=== PATIENT | female | born 1935 | race Caucasian/White ===

== ENCOUNTER 2016-11-19 18:13 | Emergency (ER) | payer MEDICARE, BC ==
[2016-11-19] MEDS ORDERED: traMADol 50 MG Tab PO ONE (18:26)
--- NOTE | 2016-11-19 18:30 | EDM.PDOC ---
ED HPI GENERAL MEDICAL PROBLEM - General Stated Complaint: PAIN Time Seen by Provider: 11/19/16 18:13 Source of Information: Reports: Patient History Limitations: Reports: No limitations - History of Present Illness INITIAL COMMENTS - FREE TEXT/NARRATIVE: 81 years old w f came to the ed due to low back pain. Pt was seen by her PMD who gave pain meds which did not help her pain. Pt has pain at her mid lower back radiating to her r groin. Denies stool or urine incontinence. No new trauma. No N/V/D Onset: gradual Onset Date: 11/14/16 Onset Time: 09:00 Duration: Day(s):, Intermittent Location: Reports: back Quality: Reports: Dull, Pressure Severity: mild Improves with: Reports: None Worsens with: Reports: None Context: Reports: Activity, Lifting Associated Symptoms: Reports: denies other symptoms - Related Data Allergies Allergy/AdvReac Type Severity Reaction Status Date / Time erythromycin estolate Allergy Rash Verified 11/19/16 18:48 [From Ilosone] fenoprofen calcium Allergy Rash Verified 11/19/16 18:48 [From Nalfon] ibuprofen [From Motrin] Allergy Rash Verified 11/19/16 18:48 lidocaine Allergy Rash Verified 11/19/16 18:48 lisinopril [From Zestril] Allergy Rash Verified 11/19/16 18:48 Penicillins Allergy Rash Verified 11/19/16 18:48 phenylbutazone Allergy Rash Verified 11/19/16 18:48 [From Butazolidin] tetracycline [Tetracycline] Allergy Rash Verified 11/19/16 18:48 zucapsaicin Allergy Cannot Verified 11/19/16 18:48 Remember .marieucchini Allergy Severe Anaphylactic Uncoded 11/19/16 18:48 Shock Home Meds: Home Meds Aspirin 81 mg PO DAILY 04/25/14 [History] Calcium Carbonate/Vitamin D3 [Calcium 600 + Vit D Tablet] 1 tab PO DAILY [History] Carvedilol [Coreg] 0.78 mg PO BID 04/25/14 [History] Estrogens, Conjugated [Premarin Vaginal Crm] 1.5 gm TOP ASDIRECTED 04/25/14 [ History] Fosinopril [Monopril] 20 mg PO DAILY 04/25/14 [History] Mirtazapine [Remeron] 7.5 mg PO BEDTIME 04/25/14 [History] Potassium Chloride [Klor-Con 10] 10 meq PO DAILY 04/25/14 [History] Triamterene/Hydrochlorothiazid [Dyazide 37.5-25] 1 cap PO DAILY 04/25/14 [ History] atorvaSTATin [Lipitor] 20 mg PO BEDTIME 04/25/14 [History] metFORMIN [Glucophage] 750 mg PO BID 04/25/14 [History] traMADol [Ultram] 50 mg PO Q6H PRN #12 tab 11/19/16 [Rx] Social & Family History - Tobacco Use Smoking Status *Q: Never Smoker Second Hand Smoke Exposure: No - Alcohol Use Days Per Week of Alcohol Use: 0 - Recreational Drug Use Recreational Drug Use: No ED ROS GENERAL - Review of Systems Review Of Systems: See Below Constitutional: Reports: no symptoms HEENT: Reports: No symptoms Respiratory: Reports: No Symptoms Cardiovascular: Reports: No symptoms Endocrine: Reports: no symptoms GI/Abdominal: Reports: No symptoms : Reports: no symptoms Musculoskeletal: Reports: back pain Skin: Reports: no symptoms Neurological: Reports: No Symptoms Psychiatric: Reports: No symptoms Hematologic/Lymphatic: Reports: no symptoms Immunologic: Reports: no symptoms ED EXAM, GENERAL - Physical Exam Exam: See Below Exam Limited By: No limitations General Appearance: alert, WD/WN, mild distress Ears: normal external exam, normal canal Ear Exam: bilateral ear: auricle normal, canal normal, TM normal Nose: normal inspection, normal mucosa, no blood Throat/Mouth: Normal inspection, Normal lips, Normal teeth, Normal gums, Normal oropharynx, Normal voice, No airway compromise Head: atraumatic, normocephalic Neck: normal inspection, supple, non-tender, full range of motion Respiratory/Chest: no respiratory distress, lungs clear, normal breath sounds, no accessory muscle use, chest non-tender Cardiovascular: normal peripheral pulses, regular rate, rhythm, no edema, no gallop, no JVD, no murmur, no rub GI/Abdominal: normal bowel sounds, soft, non tender, no organomegaly, no distention, no abnormal bruit, no mass Rectal (Female) Exam: Deferred Back Exam: normal inspection, full range of motion, NT Extremities: normal inspection, normal range of motion, non-tender, normal capillary refill, no pedal edema Neurological: alert, oriented, CN II-XII intact, normal cognition, normal gait, normal reflexes, no motor/sensory deficits Psychiatric: normal affect, normal mood Skin Exam: Warm, Dry, Intact, Normal color, No rash Lymphatic: no adenopathy Course - Vital Signs Text/Narrative:: 81 years old w f came to the ed due to low back pain. Pt was seen by her PMD who gave pain meds which did not help her pain. Pt has pain at her mid lower back radiating to her r groin. Denies stool or urine incontinence. No new trauma. No N/V/D PE: Low back tenderness, chronic Tx: ultram Reexam: Improved Plan: D/C to home Last Recorded V/S: Last Vital Signs Temp 36.3 C 11/19/16 18:42 Pulse 106 H 11/19/16 18:42 Resp 20 11/19/16 18:42 BP 165/79 H 11/19/16 18:42 Pulse Ox 98 11/19/16 18:42 - Orders/Labs/Meds Meds: Medications Discontinued Medications Generic Name Dose Route Start Last Admin Trade Name Marisol PRN Reason Stop Dose Admin Tramadol HCl 100 mg 11/19/16 18:26 Ultram PO 11/19/16 18:27 ONETIME ONE Departure - Departure Time of Disposition: 18:51 Disposition: Home, Self-Care 01 Condition: good Clinical Impression: Low back pain Qualifiers: Chronicity: unspecified Back pain laterality: midline Sciatica presence: with sciatica Sciatica laterality: sciatica of right side Qualified Code(s): M54.41 - Lumbago with sciatica, right side Prescriptions: traMADol [Ultram] 50 mg PO Q6H PRN #12 tab PRN Reason: severe pain Referrals: Familia Ogden MD [Primary Care Provider] - Forms: ED Department Discharge Additional Instructions: Please apply ice to lower back, please take the meds as recommended, please follow up, please come back to the ed if symptoms get worse acutely.
[2016-11-19 18:47] VITALS: BP 165/79
== END 2016-11-19 19:08 | disposition home or self-care (01) ==
LOC: FB.ED 18:13
DX: M54.41 Lumbago with sciatica, right side (principal); Z79.82 Long term (current) use of aspirin; Z79.84 Long term (current) use of oral hypoglycemic drugs; Z79.899 Other long term (current) drug therapy; Z88.0 Allergy status to penicillin; Z88.6 Allergy status to analgesic agent; Z88.8 Allergy status to other drugs, medicaments and biological substances
CPT/HCPCS: 99283

== ENCOUNTER 2016-12-24 18:01 | Observation (INO) | payer MEDICARE, BC ==
[2016-12-24] MEDS ORDERED: Carvedilol 6.25 MG Tab PO ONE (19:49)
[2016-12-24] MEDS ORDERED: Carvedilol 3.125 MG Tab PO ONE (19:53)
--- NOTE | 2016-12-24 20:04 | EDM.PDOC ---
ED HISTORY OF PRESENT ILLNESS - General Chief Complaint: Cardiovascular Problem Stated Complaint: BLOOD PRESSURE Time Seen by Provider: 12/24/16 18:10 Source: Reports: Patient History Limitations: Reports: No limitations - History of Present Illness INITIAL COMMENTS - FREE TEXT/NARRATIVE: 81 years old w f with a h/o Hyponatremia, came from the clinic to the ed due to HTN and Tachycardia. No N/V/D of dizziness or other medical issues at thsi time. Pt did not take her Corg this evening. Symptom Onset Date: 12/24/16 Symptom Onset Time: 07:00 Timing/Duration: Reports: Intermittent Severity: mild Improves with: Reports: Medication Worsens with: Reports: Other Associated Symptoms: Reports: denies other symptoms - Related Data Allergies/ADRs: Allergies Allergy/AdvReac Type Severity Reaction Status Date / Time erythromycin estolate Allergy Rash Verified 12/24/16 18:41 [From Ilosone] fenoprofen calcium Allergy Rash Verified 12/24/16 18:41 [From Nalfon] ibuprofen [From Motrin] Allergy Rash Verified 12/24/16 18:41 lidocaine Allergy Rash Verified 12/24/16 18:41 lisinopril [From Zestril] Allergy Rash Verified 12/24/16 18:41 Penicillins Allergy Rash Verified 12/24/16 18:41 phenylbutazone Allergy Rash Verified 12/24/16 18:41 [From Butazolidin] tetracycline [Tetracycline] Allergy Rash Verified 12/24/16 18:41 zucapsaicin Allergy Cannot Verified 12/24/16 18:41 Remember .zucchini Allergy Severe Anaphylactic Uncoded 11/20/16 16:42 Shock Home Meds: Home Meds Aspirin 81 mg PO DAILY 04/25/14 [History] Calcium Carbonate/Vitamin D3 [Calcium 600 + Vit D Tablet] 1 tab PO DAILY [History] Estrogens, Conjugated [Premarin Vaginal Crm] 1.5 gm VAG TUSA 04/25/14 [History] Fosinopril [Monopril] 20 mg PO DAILY 04/25/14 [History] Mirtazapine [Remeron] 7.5 mg PO BEDTIME 04/25/14 [History] Potassium Chloride [Klor-Con 10] 10 meq PO DAILY 04/25/14 [History] Triamterene/Hydrochlorothiazid [Dyazide 37.5-25] 1 cap PO DAILY 04/25/14 [ History] atorvaSTATin [Lipitor] 20 mg PO BEDTIME 04/25/14 [History] metFORMIN [Glucophage] 750 mg PO BIDMEALS 04/25/14 [History] Acetaminophen [Tylenol Extra Strength] 500 mg PO TID PRN 11/21/16 [History] Carvedilol [Coreg] 3.125 mg PO BID 11/21/16 [History] Cetirizine [ZyrTEC] 10 mg PO DAILY PRN 11/21/16 [History] Cyanocobalamin (Vitamin B-12) [Vitamin B-12] 1,000 mcg PO DAILY 11/21/16 [ History] Meclizine HCl 12.5 mg PO DAILY PRN 12/24/16 [History] Past Medical History HEENT History: Reports: Impaired vision, Other (see below) Other HEENT History: wears glasses Cardiovascular History: Reports: High cholesterol, Hypertension Gastrointestinal History: Reports: Chronic diarrhea Neurological History: Reports: Other (see below) Other Neuro History: numbness rt foot Psychiatric History: Reports: Anxiety, Depression Endocrine/Metabolic History: Reports: Diabetes, type II - Infectious Disease History Infectious Disease History: Reports: Chicken pox, Measles, Mumps, Shingles - Past Surgical History GI Surgical History: Reports: Colonoscopy Social & Family History - Family History Family Medical History: Noncontributory - Tobacco Use Smoking Status *Q: Never Smoker Second Hand Smoke Exposure: No - Caffeine Use Caffeine Use: Reports: Coffee - Alcohol Use Days Per Week of Alcohol Use: 0 - Recreational Drug Use Recreational Drug Use: No ED ROS GENERAL - Review of Systems Review Of Systems: See Below Constitutional: Reports: no symptoms HEENT: Reports: No symptoms Respiratory: Reports: No Symptoms Cardiovascular: Reports: No symptoms Endocrine: Reports: no symptoms GI/Abdominal: Reports: No symptoms : Reports: no symptoms Musculoskeletal: Reports: no symptoms Skin: Reports: no symptoms Neurological: Reports: No Symptoms Psychiatric: Reports: No symptoms Hematologic/Lymphatic: Reports: no symptoms Immunologic: Reports: no symptoms ED EXAM, GENERAL - Physical Exam Exam: See Below Exam Limited By: No limitations General Appearance: alert, WD/WN, no apparent distress Eye Exam: bilateral eye: normal inspection Ears: normal external exam Ear Exam: bilateral ear: auricle normal Nose: normal inspection, normal mucosa Throat/Mouth: Normal inspection Head: atraumatic, normocephalic Neck: normal inspection, supple, non-tender Respiratory/Chest: no respiratory distress, lungs clear, normal breath sounds, no accessory muscle use, chest non-tender Cardiovascular: regular rate, rhythm, no edema, no gallop, no JVD, tachycardia Peripheral Pulses: 1+: femoral (L), femoral (R) GI/Abdominal: normal bowel sounds, soft, non tender, no organomegaly (Female) Exam: Deferred Rectal (Female) Exam: Deferred Back Exam: normal inspection, full range of motion Extremities: normal inspection, normal range of motion, non-tender, no pedal edema Neurological: alert, oriented, CN II-XII intact, normal cognition, normal gait Psychiatric: normal affect, normal mood Skin Exam: Warm, Dry, Intact, Normal color, No rash Lymphatic: no adenopathy EKG INTERPRETATION EKG Date: 12/24/16 Time: 19:25 Rhythm: NSR Rate (beats/min): 110 [place]: normal P-wave: present QRS: normal ST-T: normal QT: normal Comparison: NA - no prior EKG Course - Vital Signs Text/Narrative:: 81 years old w f with a h/o hyponatremia came from the clinic to the ed due to HTN 210/98 and Tachycardia 117. No N/V/D of dizziness or other medical issues at thsi time. Pt did not take her Corg this evening. PE: obese 81 y.o.w.f in NAD, LBA; Na 131 ECG: Sinus Tachycardia 110 bpm Impression: HTN. sinus tachycardia, hyponatremia Tx: Careg 3.125 mg X 1 Reexam: able to walk but dizzy. Plan: Admit for observation Last Recorded V/S: Last Vital Signs Temp 36.8 C 12/24/16 18:10 Pulse 114 H 12/24/16 20:20 Resp 20 12/24/16 20:20 BP 186/79 H 12/24/16 20:20 Pulse Ox 99 12/24/16 18:10 - Orders/Labs/Meds Orders: Active Orders 24 hr Category Date Time Status Patient Status [ADT] Routine ADT 12/24/16 20:29 Ordered Cardiac Monitoring [RC] CONTINUOUS Care 12/24/16 20:30 Ordered EKG Documentation Completion [RC] ASDIRECTED Care 12/24/16 18:38 Active Oxygen Therapy [RC] PRN Care 12/24/16 20:29 Ordered VTE/DVT Education [RC] Per Unit Routine Care 12/24/16 20:29 Ordered Vital Signs [RC] Q4H Care 12/24/16 20:29 Ordered 2 Gram Sodium Diet [DIET] Diet 12/24/16 Breakfast Ordered Sodium Chloride 0.9% [Saline Flush] Med 12/24/16 20:28 Ordered 10 ml FLUSH ASDIRECTED PRN Peripheral IV Insertion Adult [OM.PC] Routine Oth 12/24/16 20:28 Ordered Resuscitation Status Routine Resus Stat 12/24/16 20:28 Ordered EKG 12 Lead [EK] Routine Ther 12/24/16 18:37 Ordered Medication Orders Sodium Chloride (Saline Flush) 10 ml FLUSH ASDIRECTED PRN PRN Reason: Keep Vein Open Labs: Laboratory Tests 12/24/16 12/24/16 12/24/16 Range/Units 18:14 18:45 18:45 WBC 14.5 H (4.5-12.0) X10-3/uL RBC 4.45 (3.23-5.20) x10(6)uL Hgb 13.5 (11.5-15.5) g/dL Hct 39.4 (30.0-51.3) % MCV 88.6 (80-96) fL MCH 30.3 (27.7-33.6) pg MCHC 34.3 (32.2-35.4) g/dL RDW 12.2 (11.5-15.5) % Plt Count 283 (125-369) X10(3)uL MPV 7.7 (7.4-10.4) fL Neut % (Auto) 79.7 (46-82) % Lymph % (Auto) 14.7 (13-37) % [place] % (Auto) 3.6 L (4-12) % Eos % (Auto) 2 (1.0-5.0) % Baso % (Auto) 0 (0-2) % Neut # (Auto) 11.6 H (1.6-8.3) # Lymph # (Auto) 2.1 (0.6-5.0) # Hayes # (Auto) 0.5 (0.0-1.3) # Eos # (Auto) 0.2 (0.0-0.8) # Baso # (Auto) 0.1 (0.0-0.2) # Sodium 131 L (135-145) mmol/L Potassium 4.0 (3.5-5.3) mmol/L Chloride 95 L (100-110) mmol/L Carbon Dioxide 25 (23-29) mmol/L BUN 24 H (8-23) mg/dL Creatinine 1.1 (0.6-1.3) mg/dL Est Cr Clr Drug Dosing 35.22 mL/min Estimated GFR (MDRD) 48 L (>60) BUN/Creatinine Ratio 21.8 H (9-20) Glucose 171 H (80-116) mg/dL POC Glucose 161 H (80-116) mg/dL Calcium 9.1 (8.6-10.2) mg/dL Urine Color (YELLOW) Urine Appearance (CLEAR) Urine pH (5.0-6.5) Ur Specific [place] (1.010-1.025) Urine Protein (NEGATIVE) mg/dL Urine Glucose (UA) (NEGATIVE) mg/dL Urine Ketones (NEGATIVE) mg/dL Urine Occult Blood (NEGATIVE) Urine Nitrite (NEGATIVE) Urine Bilirubin (NEGATIVE) Urine Urobilinogen (NEGATIVE) mg/dL Ur Leukocyte Esterase (NEGATIVE) Urine RBC (0) Urine WBC (0) Ur Squamous Epith Cells (NS,R,O) Urine Bacteria (NS) 12/24/16 Range/Units 19:00 WBC (4.5-12.0) X10-3/uL RBC (3.23-5.20) x10(6)uL Hgb (11.5-15.5) g/dL Hct (30.0-51.3) % MCV (80-96) fL MCH (27.7-33.6) pg MCHC (32.2-35.4) g/dL RDW (11.5-15.5) % Plt Count (125-369) X10(3)uL MPV (7.4-10.4) fL Neut % (Auto) (46-82) % Lymph % (Auto) (13-37) % Hayes % (Auto) (4-12) % Eos % (Auto) (1.0-5.0) % Baso % (Auto) (0-2) % Neut # (Auto) (1.6-8.3) # Lymph # (Auto) (0.6-5.0) # Hayes # (Auto) (0.0-1.3) # Eos # (Auto) (0.0-0.8) # Baso # (Auto) (0.0-0.2) # Sodium (135-145) mmol/L Potassium (3.5-5.3) mmol/L Chloride (100-110) mmol/L Carbon Dioxide (23-29) mmol/L BUN (8-23) mg/dL Creatinine (0.6-1.3) mg/dL Est Cr Clr Drug Dosing mL/min Estimated GFR (MDRD) (>60) BUN/Creatinine Ratio (9-20) Glucose (80-116) mg/dL POC Glucose (80-116) mg/dL Calcium (8.6-10.2) mg/dL Urine Color Yellow (YELLOW) Urine Appearance Slightly cloudy (CLEAR) Urine pH 6.0 (5.0-6.5) Ur Specific [place] 1.015 (1.010-1.025) Urine Protein Negative (NEGATIVE) mg/dL Urine Glucose (UA) Normal (NEGATIVE) mg/dL Urine Ketones Negative (NEGATIVE) mg/dL Urine Occult Blood Negative (NEGATIVE) Urine Nitrite Negative (NEGATIVE) Urine Bilirubin Negative (NEGATIVE) Urine Urobilinogen Normal (NEGATIVE) mg/dL Ur Leukocyte Esterase Negative (NEGATIVE) Urine RBC 0-5 (0) Urine WBC 0-5 (0) Ur Squamous Epith Cells Few H (NS,R,O) Urine Bacteria Few H (NS) Meds: Medications Generic Name Dose Route Start Last Admin Trade Name Freq PRN Reason Stop Dose Admin Sodium Chloride 10 ml 12/24/16 20:28 Saline Flush FLUSH ASDIRECTED PRN Keep Vein Open Discontinued Medications Generic Name Dose Route Start Last Admin Trade Name Freq PRN Reason Stop Dose Admin Carvedilol 6.25 mg 12/24/16 19:49 Coreg PO 12/24/16 19:50 ONETIME ONE Carvedilol 3.125 mg 12/24/16 19:53 Coreg PO 12/24/16 19:54 ONETIME ONE Departure - Departure Time of Disposition: 20:00 Disposition: Refer to Observation Condition: fair Clinical Impression: Sinus tachycardia by electrocardiogram, Hyponatremia Hypertension Qualifiers: Hypertension type: essential hypertension Qualified Code(s): I10 - Essential ( primary) hypertension Referrals: Familia Ogden MD [Primary Care Provider] - Forms: ED Department Discharge - My Orders Last 24 Hours: My Active Orders 12/24/16 18:37 EKG 12 Lead [EK] Routine 12/24/16 18:38 EKG Documentation Completion [RC] ASDIRECTED 12/24/16 20:28 Sodium Chloride 0.9% [Saline Flush] 10 ml FLUSH ASDIRECTED PRN Peripheral IV Insertion Adult [OM.PC] Routine Resuscitation Status Routine 12/24/16 20:29 Patient Status [ADT] Routine Oxygen Therapy [RC] PRN VTE/DVT Education [RC] Per Unit Routine Vital Signs [RC] Q4H 12/24/16 20:30 Cardiac Monitoring [RC] CONTINUOUS 12/24/16 Breakfast 2 Gram Sodium Diet [DIET] - Assessment/Plan Last 24 Hours: My Active Orders 12/24/16 18:37 EKG 12 Lead [EK] Routine 12/24/16 18:38 EKG Documentation Completion [RC] ASDIRECTED 12/24/16 20:28 Sodium Chloride 0.9% [Saline Flush] 10 ml FLUSH ASDIRECTED PRN Peripheral IV Insertion Adult [OM.PC] Routine Resuscitation Status Routine 12/24/16 20:29 Patient Status [ADT] Routine Oxygen Therapy [RC] PRN VTE/DVT Education [RC] Per Unit Routine Vital Signs [RC] Q4H 12/24/16 20:30 Cardiac Monitoring [RC] CONTINUOUS 12/24/16 Breakfast 2 Gram Sodium Diet [DIET]
[2016-12-24] MEDS ORDERED: Sodium Chloride 0.9% 10 ML Syringe FLUSH PRN (20:28)
[2016-12-24] MEDS ORDERED: MECLIZINE HCL 12.5 MG PO PRN (21:44)
[2016-12-24] MEDS ORDERED: CETIRIZINE 10 MG PO PRN (21:44)
[2016-12-24] MEDS ORDERED: ACETAMINOPHEN 500 MG PO PRN (21:44)
[2016-12-24] MEDS ORDERED: CONJUGATED ESTROGENS VAG SCH (21:45)
[2016-12-24] MEDS: MIRTAZAPINE 15 MG PO SCH (22:55)
[2016-12-25] MEDS ORDERED: ACETAMINOPHEN 500 MG PO PRN (00:28)
[2016-12-25] MEDS ORDERED: Cetirizine 10 MG Tab PO PRN (00:33)
[2016-12-25] MEDS ORDERED: Meclizine 12.5 MG Tab PO PRN (00:41)
[2016-12-25] MEDS ORDERED: TYLENOL EXTRA STRENGTH 500 MG PO PRN (01:30)
[2016-12-25] MEDS: METFORMIN 500 MG PO SCH ×2 (07:55→17:32)
[2016-12-25] MEDS ORDERED: CARVEDILOL 3.125 MG PO SCH (09:00)
[2016-12-25] MEDS: Carvedilol 6.25 MG Tab PO SCH ×2 (09:47→20:41)
[2016-12-25] MEDS: FOSINOPRIL 20 MG PO SCH (09:47)
[2016-12-25] MEDS: TRIAMTERENE PO SCH (09:48)
[2016-12-25] MEDS: Potassium Chloride 10 MEQ Tab.ER**PT OWN PO SCH (09:48)
[2016-12-25] MEDS: HYDROCHLOROTHIAZIDE PO SCH (09:48)
[2016-12-25] MEDS: Calcium Carbonate/Vitamin D3 1250 MG-200 Unit Tab PO SCH (09:53)
[2016-12-25] MEDS: ASPIRIN 81 MG PO SCH (09:53)
[2016-12-25] MEDS: CYANOCOBALAMIN PO SCH (11:00)
--- NOTE | 2016-12-25 15:26 | HP ---
ADMISSION DATE: 12/24/2016 CHIEF COMPLAINT: Lightheadedness with elevated blood pressure. HISTORY OF PRESENT ILLNESS: This patient is an 81-year-old female with a previous history of hypertension and intermittent tachycardia along with hyperlipidemia, who was seen after being evaluated in the emergency room. She says she just did not feel right today and felt slightly dizzy and just felt "off." She went to see the people at the walk-in clinic, and her blood pressure was found to be quite elevated. Because of that, she was sent to the emergency room for evaluation. Her blood pressure remained elevated and she said she just did not feel well. They elected to go ahead and admit her for observation. She had no actual chest pain. No numbness or tingling of any extremity. She does admit to some intermittent dizziness. She has had no nausea, vomiting, diarrhea, dysuria, or hematuria. There has been no recent melena, hematochezia, hematemesis, or hemoptysis. No previous history of CVA. CURRENT MEDICATIONS: Include Dyazide 25 mg daily, Monopril 20 mg daily, carvedilol 3.125 mg b.i.d., metformin 750 mg b.i.d., potassium chloride 10 mEq daily, Remeron 7.5 mg at bedtime, uses estrogen vaginal cream once weekly, calcium carbonate with vitamin D one tablet daily, takes aspirin 81 mg daily, Zyrtec 10 mg daily, uses B12 1000 mcg p.o. daily, and p.r.n. meclizine. ALLERGIES: She said are extensive including erythromycin, fenoprofen, ibuprofen, lidocaine, Butazolidin, tetracycline, capsaicin, and zucchini. She says penicillins also cause a rash and lisinopril apparently caused a rash. SOCIAL HISTORY: She does not smoke or use alcohol. PAST MEDICAL HISTORY: Pertinent in that she has had a previous open cholecystectomy and total abdominal hysterectomy, the above-mentioned hypertension, and in the last few years her blood sugars have been slowly elevating. FAMILY HISTORY: Both parents lived into their 80s or 90s. Both of "old age." She has a twin brother, who in his 70s of melanoma. She has an older brother showing signs of Alzheimer's and a younger sister who has some form of leukemia, she still living however. REVIEW OF SYSTEMS: Full review of systems was discussed. Other than that mentioned above, no cough or hemoptysis has been noted. She does admit to nocturia 2-3 times with an occasional urge incontinence. She denies any joint pain, swelling, or tenderness. Has had no other neurologic symptoms. PHYSICAL EXAMINATION: GENERAL: She appears to be quite comfortable at this time, in no acute distress. VITAL SIGNS: Afebrile. Pulse initially was in the 110-120 range, she is now 98 per minute. Blood pressure is still elevated at 166/97. Respirations are 18. O2 saturation on room air is 98%. HEENT: Unremarkable except for some bilateral cataracts. Mucous membranes are pink and moist. NECK: Supple. Carotid pulses strong and equal without bruits. CHEST: Clear. BACK: Straight with no deformities. No spinous process or CVA tenderness is noted. CARDIOVASCULAR: Revealed a normal S1 and S2 with a regular rhythm. There is no murmur, rub, or gallop. ABDOMEN: Somewhat obese with healed incisional scars. No tenderness. No rebound or rigidity. Bowel sounds are normal. EXTREMITIES: Without clubbing, no edema. No ulcerations or areas of breakdown. NEUROLOGIC: She is alert and oriented x3. She moves all extremities well. There is no evidence of ataxia and [id number] and heel-to- friend are normal. LABORATORY DATA: Blood work done yesterday revealed a hemoglobin of 13.5, hematocrit of 39.4. White count was elevated at 14,500, she maybe had barely a left shift. Sodium was 131, potassium of 4.0, chloride of 95, creatinine 1.1, BUN of 24. Her random glucose was 171, this morning it was 122. Urinalysis was unremarkable. EKG was unremarkable except for sinus tachycardia. IMPRESSION: 1. Labile hypertension with mild hyponatremia. 2. Borderline elevated white count of undetermined etiology. PLAN: We are going to increase her carvedilol to 6.25 mg b.i.d., and continue the Monopril and Dyazide as above. We will recheck her sodium and white count, and continue to monitor her blood sugar. She was admitted to observation and will continue this at least for now and see what her blood pressure does. If all goes well and things return to normal, she can be discharged later today. /[id number] /STEPHANIAL
[2016-12-25] MEDS ORDERED: FOSINOPRIL 20 MG PO ONE (16:16)
[2016-12-25] MEDS: MIRTAZAPINE 15 MG PO SCH (20:42)
[2016-12-25] MEDS ORDERED: ATORVASTATIN 20 MG PO SCH (21:00)
[2016-12-26] MEDS: METFORMIN 500 MG PO SCH (08:25)
[2016-12-26] MEDS: FOSINOPRIL 20 MG PO SCH (08:32)
[2016-12-26] MEDS: ASPIRIN 81 MG PO SCH (08:33)
[2016-12-26] MEDS: Potassium Chloride 10 MEQ Tab.ER**PT OWN PO SCH (08:33)
[2016-12-26] MEDS: CYANOCOBALAMIN PO SCH (08:34)
[2016-12-26] MEDS: HYDROCHLOROTHIAZIDE PO SCH (08:34)
[2016-12-26] MEDS: TRIAMTERENE PO SCH (08:34)
[2016-12-26 08:35] VITALS: BP 137/71
[2016-12-26] MEDS: Calcium Carbonate/Vitamin D3 1250 MG-200 Unit Tab PO SCH (08:36)
--- NOTE | 2016-12-26 13:43 | PN ---
DATE SEEN: 12/26/2016 SUBJECTIVE: Joaquina is seen today for followup of her hypertension and tachycardia. We yesterday increased her Coreg to 6.25 mg p.o. b.i.d., and some improvement in her blood pressure was noted, but was still quite high. We increased her Monopril to 30 mg daily and since then, her blood pressures have been actually quite good. Systolics are in the 130s and diastolics in the 70s. She denies any dizziness, has had no shortness of breath or palpitations. No cough. She actually feels quite good. Her appetite has been good. She slept well last night. OBJECTIVE: GENERAL: She appears to be quite comfortable at this time and in no acute distress. VITAL SIGNS: Afebrile. Blood pressure 137/71, pulse is 95 and regular. HEENT: Unremarkable. Mucous membranes are pink and moist. CHEST: Clear. CARDIOVASCULAR: Reveal a normal S1 and S2 without murmur, rub, or gallop. Regular rhythm is noted. ABDOMEN: Obese, but otherwise unremarkable. EXTREMITIES: Without clubbing, no edema. No ulcerations or areas of breakdown are noted. IMPRESSION: 1. Hypertension, under better control. 2. 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 3. Previous history of depression and insomnia. 4. History of type 2 diabetes mellitus, currently stable. PLAN: At this point, we will discharge her home. Continue the Monopril 30 mg daily and continue the Coreg 6.25 mg b.i.d. Follow up with her regular physician in 2 weeks for re-evaluation and recheck. Continue her ADA diet and some mild weight reduction was encouraged. If there are problems or new symptoms are noted to let us know. /[id number] /MODL
[2016-12-26] MEDS ORDERED: Mirtazapine 15 MG Tab *PTOM PO SCH (21:00)
== END 2016-12-26 12:45 | disposition home or self-care (01) ==
LOC: FB.ED 18:01 → FB.MS 20:36
PROVIDERS: ADMIT Emergency Medicine; ATTEND Family Medicine
DX: I10 Essential (primary) hypertension (principal); R42 Dizziness and giddiness; Z79.82 Long term (current) use of aspirin; F41.8 Other specified anxiety disorders; E11.9 Type 2 diabetes mellitus without complications; Z79.84 Long term (current) use of oral hypoglycemic drugs; E78.00 Pure hypercholesterolemia, unspecified; K52.9 Noninfective gastroenteritis and colitis, unspecified; E87.1 Hypo-osmolality and hyponatremia; R00.0 Tachycardia, unspecified; I50.9 Heart failure, unspecified; I25.10 Atherosclerotic heart disease of native coronary artery without angina pectoris
CPT/HCPCS: 36415; 80048; 81001; 82962; 85025; 93005; 99284; A9270; 99217; 99219; 99285; G0378

== ENCOUNTER 2019-04-24 07:40 | Emergency (ER) | payer MEDICARE, BC ==
--- NOTE | 2019-04-24 08:12 | EDM.PDOC ---
ED HPI GENERAL MEDICAL PROBLEM - General Chief Complaint: Gastrointestinal Problem Stated Complaint: DIARRHEA Time Seen by Provider: 04/24/19 07:47 Source of Information: Reports: Patient History Limitations: Reports: No Limitations - History of Present Illness INITIAL COMMENTS - FREE TEXT/NARRATIVE: 83 y.o.w.f with a H/O HTN and NADDM came by herself to the ed due to 5 loose Bowel movements yesterday. Pt take BP meds and potassium daily. No N/V. Pt did not travel out of the country and denies a possibility of food poisoning, no sick contact, no SOB or chest pain or any other acute med issues. Pt did not take her morning meds yet. Onset Date: 04/23/19 Onset Time: 08:00 Duration: Day(s): Location: Reports: Abdomen Quality: Reports: Burning (urination, loose stool) Severity: Moderate Improves with: Reports: None Worsens with: Reports: Other (voiding) Context: Reports: Other Associated Symptoms: Reports: No Other Symptoms - Related Data Allergies Allergy/AdvReac Type Severity Reaction Status Date / Time erythromycin estolate Allergy Rash Verified 04/24/19 07:51 [From Ilosone] fenoprofen calcium Allergy Rash Verified 04/24/19 07:51 [From Nalfon] ibuprofen [From Motrin] Allergy Rash Verified 04/24/19 07:51 lidocaine Allergy Rash Verified 04/24/19 07:51 lisinopril [From Zestril] Allergy Rash Verified 04/24/19 07:51 Penicillins Allergy Rash Verified 04/24/19 07:51 phenylbutazone Allergy Rash Verified 04/24/19 07:51 [From Butazolidin] tetracycline [Tetracycline] Allergy Rash Verified 04/24/19 07:51 zucapsaicin Allergy Cannot Verified 04/24/19 07:51 Remember .zucchini Allergy Severe Anaphylactic Uncoded 04/24/19 07:51 Shock Home Meds: Home Meds Calcium Carbonate/Vitamin D3 [Calcium 600 + Vit D Tablet] 1 tab PO DAILY [History] Estrogens, Conjugated [Premarin Vaginal Crm] 1.5 gm VAG TUSA 04/25/14 [History] Mirtazapine [Remeron] 7.5 mg PO BEDTIME 04/25/14 [History] Potassium Chloride [Klor-Con 10] 10 meq PO DAILY 04/25/14 [History] Triamterene/Hydrochlorothiazid [Dyazide 37.5-25] 1 cap PO DAILY 04/25/14 [ History] atorvaSTATin [Lipitor] 20 mg PO BEDTIME 04/25/14 [History] metFORMIN [Glucophage] 750 mg PO DAILY 04/25/14 [History] Acetaminophen [Tylenol Extra Strength] 500 mg PO TID PRN 11/21/16 [History] Cetirizine [ZyrTEC] 10 mg PO DAILY PRN 11/21/16 [History] Cyanocobalamin (Vitamin B-12) [Vitamin B-12] 1,000 mcg PO DAILY 11/21/16 [ History] Carvedilol [Coreg] 6.25 mg PO BID #0 tablet 12/26/16 [Rx] Fosinopril [Monopril] 30 mg PO DAILY #135 12/26/16 [Rx] Sulfamethoxazole/Trimethoprim [Bactrim Ds Tablet] 1 each PO BID #20 tablet 04/24 [Rx] metFORMIN [Glucophage XR] 1,000 mg PO WITHDINNER 04/24/19 [History] Past Medical History HEENT History: Reports: Impaired Vision Other HEENT History: wears glasses Cardiovascular History: Reports: High Cholesterol, Hypertension Gastrointestinal History: Reports: Chronic Diarrhea Genitourinary History: Reports: None Musculoskeletal History: Reports: Arthritis, Fracture Other Musculoskeletal History: hx fx R clavicle Neurological History: Reports: Vertigo Other Neuro History: numbness rt foot Psychiatric History: Reports: Anxiety, Depression Endocrine/Metabolic History: Reports: Diabetes, Type II - Infectious Disease History Infectious Disease History: Reports: Chicken Pox, Measles, Mumps, Shingles - Past Surgical History HEENT Surgical History: Reports: Cataract Surgery, Laser Surgery Other HEENT Surgeries/Procedures: bilat cataract, bilat laser surgery bilat eyes GI Surgical History: Reports: Cholecystectomy, Colonoscopy Female Surgical History: Reports: Hysterectomy, Salpingo-Oophorectomy Social & Family History - Family History Family Medical History: Noncontributory - Tobacco Use Smoking Status *Q: Never Smoker - Caffeine Use Caffeine Use: Reports: Coffee, Soda - Recreational Drug Use Recreational Drug Use: No ED ROS GENERAL - Review of Systems Review Of Systems: See Below Constitutional: Reports: No Symptoms HEENT: Reports: No Symptoms Respiratory: Reports: No Symptoms Cardiovascular: Reports: No Symptoms Endocrine: Reports: No Symptoms GI/Abdominal: Reports: Diarrhea : Reports: Dysuria, Frequency, Urgency Musculoskeletal: Reports: No Symptoms Skin: Reports: No Symptoms Neurological: Reports: No Symptoms Psychiatric: Reports: No Symptoms Hematologic/Lymphatic: Reports: No Symptoms Immunologic: Reports: No Symptoms ED EXAM, GI/ABD - Physical Exam Exam: See Below Exam Limited By: No Limitations General Appearance: Alert, WD/WN, Mild Distress Eyes: Bilateral: Normal Appearance Ears: Normal External Exam Nose: Normal Inspection, Normal Mucosa, No Blood Throat/Mouth: Normal Inspection, Normal Lips, Normal Voice, No Airway Compromise Head: Atraumatic, Normocephalic Neck: Normal Inspection, Supple, Non-Tender, Full Range of Motion Respiratory/Chest: No Respiratory Distress, Lungs Clear, Normal Breath Sounds, Chest Non-Tender Cardiovascular: Normal Peripheral Pulses, Regular Rate, Rhythm, No Edema, No JVD GI/Abdominal Exam: Normal Bowel Sounds, Soft, Non-Tender, No Organomegaly (Female) Exam: Deferred Rectal (Female) Exam: Deferred Back Exam: Normal Inspection, Full Range of Motion Extremities: Normal Inspection, Normal Range of Motion, Non-Tender Neurological: Alert, Oriented, CN II-XII Intact, Normal Cognition, Normal Gait Psychiatric: Normal Affect, Normal Mood Skin Exam: Warm, Dry, Intact, Normal Color, No Rash Lymphatic: No Adenopathy Course - Vital Signs Text/Narrative:: 83 y.o.w.f with a H/O HTN and NADDM came by herself to the ed due to 5 loose Bowel movements yesterday. Pt take BP meds and potassium daily. No N/V. Pt did not travel out of the country and denies a possibility of food poisoning, no sick contact, no SOB or chest pain or any other acute med issues. Pt did not take her morning meds yet. BP 157/70 RR 10 Pulse ox 100% on Pulse 99 Temp 36.8 PE: WNWD W F in NAD with loose stools yesterday and burning urinations. No N/V, no weakness, pt came with her own car Imaging: Not indicated Lab: UA pos for Pyuria, WBC nl Na 127 K 3.3 Cl 90 Glc 163. Remainder of BMP was neg Impression: H/O HTN, Loose stool, Low sodium, low potassium, Dysuria Tx: KCL 40 meq po, Bactrim as a prescription Impression: Improved Plan: D/C with instructions Last Recorded V/S: Last Vital Signs Temp 36.3 C 04/24/19 07:47 Pulse 86 04/24/19 09:25 Resp 18 04/24/19 09:25 BP 129/62 04/24/19 09:25 Pulse Ox 98 04/24/19 09:25 - Orders/Labs/Meds Orders: Active Orders 24 hr Category Date Time Status CULTURE URINE [RM] Stat Lab 04/24/19 08:10 Received Labs: Laboratory Tests 04/24/19 04/24/19 04/24/19 Range/Units 08:10 08:26 08:26 WBC 11.0 (4.5-12.0) X10-3/uL RBC 4.13 (3.23-5.20) x10(6)uL Hgb 12.8 (11.5-15.5) g/dL Hct 36.4 (30.0-51.3) % MCV 88.1 (80-96) fL MCH 31.0 (27.7-33.6) pg MCHC 35.2 (32.2-35.4) g/dL RDW 12.0 (11.5-15.5) % Plt Count 210 (125-369) X10(3)uL MPV 8.2 (7.4-10.4) fL Neut % (Auto) 79.6 (46-82) % Lymph % (Auto) 14.7 (13-37) % [place] % (Auto) 4.3 (4-12) % Eos % (Auto) 1 (1.0-5.0) % Baso % (Auto) 0 (0-2) % Neut # (Auto) 8.8 H (1.6-8.3) # Lymph # (Auto) 1.6 (0.6-5.0) # [place] # (Auto) 0.5 (0.0-1.3) # Eos # (Auto) 0.1 (0.0-0.8) # Baso # (Auto) 0.0 (0.0-0.2) # Sodium 127 L (135-145) mmol/L Potassium 3.3 L (3.5-5.3) mmol/L Chloride 90 L (100-110) mmol/L Carbon Dioxide 24 (21-32) mmol/L BUN 16 (7-18) mg/dL Creatinine 0.9 (0.55-1.02) mg/dL Est Cr Clr Drug Dosing 41.62 mL/min Estimated GFR (MDRD) 60 (>60) BUN/Creatinine Ratio 17.8 (9-20) Glucose 163 H (80-116) mg/dL Calcium 9.0 (8.6-10.2) mg/dL Urine Color Yellow (YELLOW) Urine Appearance Slightly cloudy (CLEAR) Urine pH 5.0 (5.0-6.5) Ur Specific [place] 1.005 L (1.010-1.025) Urine Protein Negative (NEGATIVE) mg/dL Urine Glucose (UA) Normal (NORMAL) mg/dL Urine Ketones Negative (NEGATIVE) mg/dL Urine Occult Blood Negative (NEGATIVE) Urine Nitrite Negative (NEGATIVE) Urine Bilirubin Negative (NEGATIVE) Urine Urobilinogen Normal (NEGATIVE) mg/dL Ur Leukocyte Esterase Negative (NEGATIVE) Urine RBC 0-5 (0-5) Urine WBC 5-10 H (0-5) Ur Epithelial Cells Few Urine Bacteria Moderate H (NS) Meds: Medications Discontinued Medications Generic Name Dose Route Start Last Admin Trade Name Freq PRN Reason Stop Dose Admin Potassium Chloride 40 meq 04/24/19 09:23 04/24/19 09:28 Klor-Con M20 PO 04/24/19 09:24 40 meq ONETIME ONE Administration Departure - Departure Time of Disposition: 09:27 Disposition: Home, Self-Care 01 Condition: Good Clinical Impression: Hypokalemia, Low sodium levels UTI (urinary tract infection) Qualifiers: Urinary tract infection type: acute cystitis - Discharge Information Prescriptions: Sulfamethoxazole/Trimethoprim [Bactrim Ds Tablet] 1 each PO BID #20 tablet Instructions: Hyponatremia, [id number], Hypokalemia, Urinary Tract Infection , Adult, [id number]-no-[id number] Referrals: Familia Ogden MD [Primary Care Provider] - Forms: ED Department Discharge Additional Instructions: Please follow up with your regular MD either on Monday or Monday for potassium level and sodium level check. Please decrease water intake for now. Please continue your medications. take one extra potassium 10 meq this evening. Please come back if your symptoms get worse acutely. - My Orders Last 24 Hours: My Active Orders 04/24/19 08:10 CULTURE URINE [RM] Stat - Assessment/Plan Last 24 Hours: My Active Orders 04/24/19 08:10 CULTURE URINE [] Stat
[2019-04-24] MEDS: Potassium Chloride 20 MEQ Tab.ER PO ONE (09:28)
[2019-04-24 10:26] VITALS: BP 129/62
== END 2019-04-24 09:47 | disposition home or self-care (01) ==
LOC: FB.ED 07:40
DX: E87.6 Hypokalemia (principal); E87.1 Hypo-osmolality and hyponatremia; N30.00 Acute cystitis without hematuria; I10 Essential (primary) hypertension; E11.9 Type 2 diabetes mellitus without complications; F41.9 Anxiety disorder, unspecified; F32.9 Major depressive disorder, single episode, unspecified; Z79.84 Long term (current) use of oral hypoglycemic drugs; Z79.899 Other long term (current) drug therapy; Z88.8 Allergy status to other drugs, medicaments and biological substances; Z88.0 Allergy status to penicillin; Z88.6 Allergy status to analgesic agent; Z88.1 Allergy status to other antibiotic agents
CPT/HCPCS: 36415; 80048; 81001; 85025; 87086; 99284; A9270

== ENCOUNTER 2019-04-25 13:45 | Emergency (ER) | payer MEDICARE, BC ==
[2019-04-25] MEDS ORDERED: Sodium Chloride 0.9% 1,000 ML IV ONE (14:17)
[2019-04-25] MEDS ORDERED: Sulfamethoxazole/Trimethoprim 800-160 MG Tab PO ONE (14:19)
--- NOTE | 2019-04-25 14:39 | EDM.PDOC ---
ED HPI GENERAL MEDICAL PROBLEM - General Chief Complaint: General Stated Complaint: UTI AND LOW SODIUM Time Seen by Provider: 04/25/19 13:50 - History of Present Illness INITIAL COMMENTS - FREE TEXT/NARRATIVE: Patient is an 83 YO WF who was diagnosed with UTI yesterday and hypokalemia and is back here today because she feels anxious because of her low sodium and wants to be admitted. She didn't take her bactrim as prescribed and told me that she doesn't feel like taking it because she doesn't need it. There is no associated fever or chills,N/V/D. - Related Data Allergies Allergy/AdvReac Type Severity Reaction Status Date / Time erythromycin estolate Allergy Rash Verified 04/24/19 07:51 [From Ilosone] fenoprofen calcium Allergy Rash Verified 04/24/19 07:51 [From Nalfon] ibuprofen [From Motrin] Allergy Rash Verified 04/24/19 07:51 lidocaine Allergy Rash Verified 04/24/19 07:51 lisinopril [From Zestril] Allergy Rash Verified 04/24/19 07:51 Penicillins Allergy Rash Verified 04/24/19 07:51 phenylbutazone Allergy Rash Verified 04/24/19 07:51 [From Butazolidin] tetracycline [Tetracycline] Allergy Rash Verified 04/24/19 07:51 zucapsaicin Allergy Cannot Verified 04/24/19 07:51 Remember .marieucchini Allergy Severe Anaphylactic Uncoded 04/24/19 07:51 Shock Home Meds: Home Meds Calcium Carbonate/Vitamin D3 [Calcium 600 + Vit D Tablet] 1 tab PO DAILY [History] Estrogens, Conjugated [Premarin Vaginal Crm] 1.5 gm VAG TUSA 04/25/14 [History] Mirtazapine [Remeron] 7.5 mg PO BEDTIME 04/25/14 [History] Potassium Chloride [Klor-Con 10] 10 meq PO DAILY 04/25/14 [History] Triamterene/Hydrochlorothiazid [Dyazide 37.5-25] 1 cap PO DAILY 04/25/14 [ History] atorvaSTATin [Lipitor] 20 mg PO BEDTIME 04/25/14 [History] metFORMIN [Glucophage] 750 mg PO DAILY 04/25/14 [History] Acetaminophen [Tylenol Extra Strength] 500 mg PO TID PRN 11/21/16 [History] Cetirizine [ZyrTEC] 10 mg PO DAILY PRN 11/21/16 [History] Cyanocobalamin (Vitamin B-12) [Vitamin B-12] 1,000 mcg PO DAILY 11/21/16 [ History] Carvedilol [Coreg] 6.25 mg PO BID #0 tablet 12/26/16 [Rx] Fosinopril [Monopril] 30 mg PO DAILY #135 12/26/16 [Rx] Sulfamethoxazole/Trimethoprim [Bactrim Ds Tablet] 1 each PO BID #20 tablet 04/24 [Rx] metFORMIN [Glucophage XR] 1,000 mg PO WITHDINNER 04/24/19 [History] Past Medical History HEENT History: Reports: Impaired Vision Other HEENT History: wears glasses Cardiovascular History: Reports: High Cholesterol, Hypertension Gastrointestinal History: Reports: Chronic Diarrhea Genitourinary History: Reports: None Musculoskeletal History: Reports: Arthritis, Fracture Other Musculoskeletal History: hx fx R clavicle Neurological History: Reports: Vertigo Other Neuro History: numbness rt foot Psychiatric History: Reports: Anxiety, Depression Endocrine/Metabolic History: Reports: Diabetes, Type II - Infectious Disease History Infectious Disease History: Reports: Chicken Pox, Measles, Mumps, Shingles - Past Surgical History HEENT Surgical History: Reports: Cataract Surgery, Laser Surgery Other HEENT Surgeries/Procedures: bilat cataract, bilat laser surgery bilat eyes GI Surgical History: Reports: Cholecystectomy, Colonoscopy Female Surgical History: Reports: Hysterectomy, Salpingo-Oophorectomy Social & Family History - Family History Family Medical History: Noncontributory - Tobacco Use Smoking Status *Q: Never Smoker - Caffeine Use Caffeine Use: Reports: None ED ROS GENERAL - Review of Systems Review Of Systems: See Below Constitutional: Reports: No Symptoms HEENT: Reports: No Symptoms Respiratory: Reports: No Symptoms Cardiovascular: Reports: No Symptoms Endocrine: Reports: No Symptoms GI/Abdominal: Reports: No Symptoms : Reports: No Symptoms Musculoskeletal: Reports: No Symptoms Skin: Reports: No Symptoms Neurological: Reports: No Symptoms ED EXAM, GENERAL - Physical Exam Exam: See Below Exam Limited By: No Limitations General Appearance: Alert, No Apparent Distress Ears: Normal External Exam, Normal Canal Nose: Normal Inspection, Normal Mucosa, No Blood Throat/Mouth: Normal Inspection, Normal Lips Head: Atraumatic, Normocephalic Neck: Normal Inspection, Supple, Non-Tender, Full Range of Motion Respiratory/Chest: No Respiratory Distress, Lungs Clear, Normal Breath Sounds, No Accessory Muscle Use, Chest Non-Tender Cardiovascular: Normal Peripheral Pulses, Regular Rate, Rhythm, No Edema, No Gallop, No JVD, No Murmur GI/Abdominal: Normal Bowel Sounds, No Organomegaly (Female) Exam: Normal External Exam, Normal Speculum Exam Course - Vital Signs Text/Narrative:: I discussed with the patient in detail that we can't just admit her in the hospital especially if she is doing fine inspite of her low sodium at 127. She never had any alter LOC,confusion or seizure episode. She also have an appointment to see her doctor tomorrow. I told her that we can give her a liter of normal saline start taking her Bactrim for her UTI and keep her appointment to see her doctor tomorrow. Last Recorded V/S: Last Vital Signs Temp 36.3 C 04/25/19 13:45 Pulse 130 H 04/25/19 13:45 Resp 14 04/25/19 13:45 BP 157/72 H 04/25/19 13:45 Pulse Ox 99 04/25/19 13:45 - Orders/Labs/Meds Orders: Active Orders 24 hr Category Date Time Status Sodium Chloride 0.9% [Saline Flush] Med 04/25/19 14:46 Active 10 ml FLUSH ASDIRECTED PRN Medication Orders Sodium Chloride (Saline Flush) 10 ml FLUSH ASDIRECTED PRN PRN Reason: IV Use Last Admin: 04/25/19 14:48 Dose: 10 ml Meds: Medications Generic Name Dose Route Start Last Admin Trade Name Freq PRN Reason Stop Dose Admin Sodium Chloride 10 ml 04/25/19 14:46 04/25/19 14:48 Saline Flush FLUSH 10 ml ASDIRECTED PRN Administration IV Use Discontinued Medications Generic Name Dose Route Start Last Admin Trade Name Freq PRN Reason Stop Dose Admin Sodium Chloride 1,000 mls @ 999 mls/min 04/25/19 14:17 04/25/19 14:46 Normal Saline IV 04/25/19 14:18 999 mls/min .BOLUS ONE Administration Trimethoprim/Sulfamethoxazole 1 tab 04/25/19 14:19 04/25/19 14:46 Septra Ds PO 04/25/19 14:20 1 tab ONETIME ONE Administration Departure - Departure Time of Disposition: 13:50 Disposition: Home, Self-Care 01 Clinical Impression: Hyponatremia UTI (urinary tract infection) Qualifiers: Urinary tract infection type: acute cystitis - Discharge Information Instructions: Hyponatremia, Urinary Tract Infection, Adult Referrals: Familia Ogden MD [Primary Care Provider] - Forms: ED Department Discharge Additional Instructions: crissy read dischatge instructions on low sodium and UTI Bactrim DS take 1 tablet twice daily for 3days keep your appointment to be seen by your doctor tomorrow - My Orders Last 24 Hours: My Active Orders 04/25/19 14:46 Sodium Chloride 0.9% [Saline Flush] 10 ml FLUSH ASDIRECTED PRN - Assessment/Plan Last 24 Hours: My Active Orders 04/25/19 14:46 Sodium Chloride 0.9% [Saline Flush] 10 ml FLUSH ASDIRECTED PRN
[2019-04-25] MEDS ORDERED: Sodium Chloride 0.9% 10 ML Syringe FLUSH PRN (14:46)
[2019-04-25 15:51] VITALS: BP 155/64
== END 2019-04-25 16:10 | disposition home or self-care (01) ==
LOC: FB.ED 13:45
DX: E87.1 Hypo-osmolality and hyponatremia (principal); N30.00 Acute cystitis without hematuria; E11.9 Type 2 diabetes mellitus without complications; I10 Essential (primary) hypertension; F41.9 Anxiety disorder, unspecified; F32.9 Major depressive disorder, single episode, unspecified; E78.00 Pure hypercholesterolemia, unspecified; M19.90 Unspecified osteoarthritis, unspecified site; Z88.0 Allergy status to penicillin; Z88.1 Allergy status to other antibiotic agents; Z91.018 Allergy to other foods; Z88.6 Allergy status to analgesic agent; Z88.8 Allergy status to other drugs, medicaments and biological substances; Z79.84 Long term (current) use of oral hypoglycemic drugs; Z79.899 Other long term (current) drug therapy
CPT/HCPCS: 96360; 99283; A9270; J7030

== ENCOUNTER 2019-12-19 15:36 | Inpatient (IN) | payer MEDICARE, BC ==
[2019-12-19] MEDS ORDERED: Ondansetron 4 MG/2 ML SDV IVPUSH ONE (16:07)
--- NOTE | 2019-12-19 16:49 | CR ---
INDICATION: Cough. CHEST, TWO VIEWS: PA and lateral views of the chest were obtained 12/19/19 - no comparisons. The heart is normal in size and shape. There is an appearance of minimal infiltrate in the area of the lingula. There may be some atelectasis in that area also. No definite pleural effusion or gross consolidating pneumonia was identified. Slightly flattened diaphragm leaf, prominent AP diameter and mild hyperaeration suggest possibility of COPD - correlate clinically. The aorta is tortuous with calcification in the arch and descending portion. Diminished bone density is noted, compatible with osteoporosis. Degenerative hypertrophic changes with disk disease are noted in the lower middle thoracic spine with a mild dextroconcave scoliosis in that area. IMPRESSION: 1. Possible minimal infiltrate at the lingula could represent pneumonia - correlate clinically. 2. ASD aorta. 3. Osteoporosis, scoliosis, DJD spine. 4. 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 Report was called to Dr. Meade at 1638 hours. [facility]
[2019-12-19] MEDS: Sodium Chloride 0.9% 1,000 ML IV SCH (16:55)
--- NOTE | 2019-12-19 17:54 | EDM.PDOC ---
ED HPI GENERAL MEDICAL PROBLEM - General Chief Complaint: General Stated Complaint: GENERAL WEAKNESS Time Seen by Provider: 12/19/19 15:50 Source of Information: Reports: Patient History Limitations: Reports: No Limitations - History of Present Illness INITIAL COMMENTS - FREE TEXT/NARRATIVE: Patient presented to the ED because of weakness and altered level of consciousness. She had brief memory loss yesterday without any neuro deficits. She had diarrhea which is mostly water for 1 month and resolved 2 days ago. She also have been coughing x 2 weeks now which is mostly non-productive,denies having any fever or chills. She attributes her cough because of her medications. - Related Data Allergies Allergy/AdvReac Type Severity Reaction Status Date / Time erythromycin estolate Allergy Rash Verified 12/19/19 17:47 [From Ilosone] fenoprofen calcium Allergy Rash Verified 12/19/19 17:47 [From Nalfon] ibuprofen [From Motrin] Allergy Rash Verified 12/19/19 17:47 lidocaine Allergy Rash Verified 12/19/19 17:47 lisinopril [From Zestril] Allergy Rash Verified 12/19/19 17:47 Penicillins Allergy Rash Verified 12/19/19 17:47 phenylbutazone Allergy Rash Verified 12/19/19 17:47 [From Butazolidin] tetracycline [Tetracycline] Allergy Rash Verified 12/19/19 17:47 zucapsaicin Allergy Cannot Verified 12/19/19 17:47 Remember .marieucchini Allergy Severe Anaphylactic Uncoded 04/24/19 07:51 Shock Home Meds: Home Meds Calcium Carbonate/Vitamin D3 [Calcium 600 + Vit D Tablet] 1 tab PO DAILY [History] Estrogens, Conjugated [Premarin Vaginal Crm] 1.5 gm VAG TUSA 04/25/14 [History] Mirtazapine [Remeron] 7.5 mg PO BEDTIME 04/25/14 [History] Potassium Chloride [Klor-Con 10] 10 meq PO DAILY 04/25/14 [History] Triamterene/Hydrochlorothiazid [Dyazide 37.5-25] 1 cap PO DAILY 04/25/14 [ History] atorvaSTATin [Lipitor] 20 mg PO BEDTIME 04/25/14 [History] metFORMIN [Glucophage] 750 mg PO DAILY 04/25/14 [History] Acetaminophen [Tylenol Extra Strength] 500 mg PO TID PRN 11/21/16 [History] Cetirizine [ZyrTEC] 10 mg PO DAILY PRN 11/21/16 [History] Cyanocobalamin (Vitamin B-12) [Vitamin B-12] 1,000 mcg PO DAILY 11/21/16 [ History] Fosinopril [Monopril] 30 mg PO DAILY #135 12/26/16 [Rx] carvediloL [Coreg] 6.25 mg PO BID #0 tablet 12/26/16 [Rx] metFORMIN [Glucophage XR] 1,000 mg PO WITHDINNER 04/24/19 [History] Cyanocobalamin/Cobamamide [Vitamin B-12 5,000 Mcg Tab Sl] 1 each SL DAILY [History] Past Medical History HEENT History: Reports: Impaired Vision Other HEENT History: wears glasses Cardiovascular History: Reports: High Cholesterol, Hypertension Gastrointestinal History: Reports: Chronic Diarrhea Genitourinary History: Reports: None Musculoskeletal History: Reports: Arthritis, Fracture Other Musculoskeletal History: hx fx R clavicle Neurological History: Reports: Vertigo Other Neuro History: numbness rt foot Psychiatric History: Reports: Anxiety, Depression Endocrine/Metabolic History: Reports: Diabetes, Type II - Infectious Disease History Infectious Disease History: Reports: Chicken Pox, Measles, Mumps, Shingles - Past Surgical History HEENT Surgical History: Reports: Cataract Surgery, Laser Surgery Other HEENT Surgeries/Procedures: bilat cataract, bilat laser surgery bilat eyes GI Surgical History: Reports: Cholecystectomy, Colonoscopy Female Surgical History: Reports: Hysterectomy, Salpingo-Oophorectomy Social & Family History - Family History Family Medical History: Noncontributory - Caffeine Use Caffeine Use: Reports: None - Recreational Drug Use Recreational Drug Use: No ED ROS GENERAL - Review of Systems Review Of Systems: See Below Constitutional: Reports: No Symptoms HEENT: Reports: No Symptoms Respiratory: Reports: Shortness of Breath, Cough. Denies: Sputum Cardiovascular: Reports: No Symptoms Endocrine: Reports: No Symptoms GI/Abdominal: Reports: No Symptoms, Diarrhea, Nausea : Reports: No Symptoms Musculoskeletal: Reports: No Symptoms Skin: Reports: No Symptoms Neurological: Reports: No Symptoms Psychiatric: Reports: No Symptoms ED EXAM, GENERAL - Physical Exam Exam: See Below Exam Limited By: No Limitations General Appearance: Alert, No Apparent Distress Ears: Normal External Exam Nose: Normal Inspection, Normal Mucosa Throat/Mouth: Normal Inspection, Normal Lips Head: Atraumatic, Normocephalic Neck: Normal Inspection, Supple, Non-Tender Respiratory/Chest: No Respiratory Distress, Decreased Breath Sounds, Rhonchi Cardiovascular: Normal Peripheral Pulses, Regular Rate, Rhythm, No Edema, No Gallop GI/Abdominal: Normal Bowel Sounds, Soft, Non-Tender Back Exam: Normal Inspection, Full Range of Motion Course - Vital Signs Text/Narrative:: Labs/CXR was discussed with patient and verbalized full understanding NS 1 L bolus Zofran 4 mg IV x1 Rocephine 1 Gm IV x1 Azithomycin 500 mg IV x1 Last Recorded V/S: Last Vital Signs Temp 37.7 C 12/19/19 15:44 Pulse 115 H 12/19/19 15:44 Resp 16 12/19/19 15:44 BP 139/55 L 12/19/19 15:44 Pulse Ox 98 12/19/19 15:44 - Orders/Labs/Meds Orders: Active Orders 24 hr Category Date Time Status CULTURE BLOOD [BC] Urgent Lab 12/19/19 16:51 Ordered CULTURE BLOOD [BC] Urgent Lab 12/19/19 16:51 Ordered CULTURE URINE [RM] Stat Lab 12/19/19 16:34 Ordered Sodium Chloride 0.9% [Normal Saline] 1,000 ml Med 12/19/19 16:15 Active IV ASDIRECTED Blood Culture x2 Reflex Set [OM.PC] Urgent Oth 12/19/19 16:51 Ordered Medication Orders Sodium Chloride (Normal Saline) 1,000 mls @ 999 mls/hr IV ASDIRECTED [facility] Last Admin: 12/19/19 16:55 Dose: 999 mls/hr Labs: Laboratory Tests 12/19/19 12/19/19 12/19/19 Range/Units 16:17 16:17 16:20 WBC 15.0 H (4.5-12.0) X10-3/uL RBC 4.05 (3.23-5.20) x10(6)uL Hgb 12.4 (11.5-15.5) g/dL Hct 36.8 (30.0-51.3) % MCV 90.9 (80-96) fL MCH 30.7 (27.7-33.6) pg MCHC 33.7 (32.2-35.4) g/dL RDW 12.3 (11.5-15.5) % Plt Count 202 (125-369) X10(3)uL MPV 7.7 (7.4-10.4) fL Neut % (Auto) 84.9 H (46-82) % Lymph % (Auto) 7.7 L (13-37) % [place] % (Auto) 6.9 (4-12) % Eos % (Auto) 0 L (1.0-5.0) % Baso % (Auto) 0 (0-2) % Neut # (Auto) 12.7 H (1.6-8.3) # Lymph # (Auto) 1.2 (0.6-5.0) # [place] # (Auto) 1.0 (0.0-1.3) # Eos # (Auto) 0.0 (0.0-0.8) # Baso # (Auto) 0.1 (0.0-0.2) # Sodium 131 L (135-145) mmol/L Potassium 3.7 (3.5-5.3) mmol/L Chloride 93 L (100-110) mmol/L Carbon Dioxide 27 (21-32) mmol/L BUN 43 H D (7-18) mg/dL Creatinine 1.6 H (0.55-1.02) mg/dL Est Cr Clr Drug Dosing TNP Estimated GFR (MDRD) 31 L (>60) BUN/Creatinine Ratio 26.9 H (9-20) Glucose 170 H (80-116) mg/dL Lactic Acid (0.4-2.0) mmol/L Calcium 8.6 (8.6-10.2) mg/dL Urine Color Yellow (YELLOW) Urine Appearance Clear (CLEAR) Urine pH 5.0 (5.0-6.5) Ur Specific [place] 1.020 (1.010-1.025) Urine Protein 30 H (NEGATIVE) mg/dL Urine Glucose (UA) Normal (NORMAL) mg/dL Urine Ketones Negative (NEGATIVE) mg/dL Urine Occult Blood Large H (NEGATIVE) Urine Nitrite Positive H (NEGATIVE) Urine Bilirubin Negative (NEGATIVE) Urine Urobilinogen Normal (NEGATIVE) mg/dL Ur Leukocyte Esterase Moderate H (NEGATIVE) Urine RBC 10-20 H (0-5) Urine WBC 50-75 H (0-5) Ur Squamous Epith Cells Few H (NS,R,O) Urine Bacteria Moderate H (NS) Urine Mucus Moderate H (NS) 12/19/19 Range/Units 17:05 WBC (4.5-12.0) X10-3/uL RBC (3.23-5.20) x10(6)uL Hgb (11.5-15.5) g/dL Hct (30.0-51.3) % MCV (80-96) fL MCH (27.7-33.6) pg MCHC (32.2-35.4) g/dL RDW (11.5-15.5) % Plt Count (125-369) X10(3)uL MPV (7.4-10.4) fL Neut % (Auto) (46-82) % Lymph % (Auto) (13-37) % [place] % (Auto) (4-12) % Eos % (Auto) (1.0-5.0) % Baso % (Auto) (0-2) % Neut # (Auto) (1.6-8.3) # Lymph # (Auto) (0.6-5.0) # [place] # (Auto) (0.0-1.3) # Eos # (Auto) (0.0-0.8) # Baso # (Auto) (0.0-0.2) # Sodium (135-145) mmol/L Potassium (3.5-5.3) mmol/L Chloride (100-110) mmol/L Carbon Dioxide (21-32) mmol/L BUN (7-18) mg/dL Creatinine (0.55-1.02) mg/dL Est Cr Clr Drug Dosing Estimated GFR (MDRD) (>60) BUN/Creatinine Ratio (9-20) Glucose (80-116) mg/dL Lactic Acid 1.2 (0.4-2.0) mmol/L Calcium (8.6-10.2) mg/dL Urine Color (YELLOW) Urine Appearance (CLEAR) Urine pH (5.0-6.5) Ur Specific [place] (1.010-1.025) Urine Protein (NEGATIVE) mg/dL Urine Glucose (UA) (NORMAL) mg/dL Urine Ketones (NEGATIVE) mg/dL Urine Occult Blood (NEGATIVE) Urine Nitrite (NEGATIVE) Urine Bilirubin (NEGATIVE) Urine Urobilinogen (NEGATIVE) mg/dL Ur Leukocyte Esterase (NEGATIVE) Urine RBC (0-5) Urine WBC (0-5) Ur Squamous Epith Cells (NS,R,O) Urine Bacteria (NS) Urine Mucus (NS) Meds: Medications Generic Name Dose Route Start Last Admin Trade Name Freq PRN Reason Stop Dose Admin Sodium Chloride 1,000 mls @ 999 mls/hr 12/19/19 16:15 12/19/19 16:55 Normal Saline IV 999 mls/hr ASDIRECTED MARISELA Administration Discontinued Medications Generic Name Dose Route Start Last Admin Trade Name Freq PRN Reason Stop Dose Admin Ondansetron HCl 4 mg 12/19/19 16:07 12/19/19 16:55 Zofran IVPUSH 12/19/19 16:08 4 mg ONETIME ONE Administration Departure - Departure Time of Disposition: 18:00 Disposition: Admitted As Inpatient 67 Condition: Good Clinical Impression: Pneumonia, Dehydration, LOPEZ (acute kidney injury), Hyponatremia UTI (urinary tract infection) Qualifiers: Urinary tract infection type: acute cystitis - Discharge Information Referrals: Familia Ogden MD [Primary Care Provider] - Sepsis Event Note - Evaluation Sepsis Screening Result: No Definite Risk - Focused Exam Vital Signs: Vital Signs Temp Pulse Resp BP Pulse Ox 12/19/19 15:44 37.7 C 115 H 16 139/55 L 98 Date Exam was Performed: 12/19/19 Time Exam was Performed: 17:49 - My Orders Last 24 Hours: My Active Orders 12/19/19 16:15 Sodium Chloride 0.9% [Normal Saline] 1,000 ml IV ASDIRECTED 12/19/19 16:34 CULTURE URINE [RM] Stat 12/19/19 16:51 CULTURE BLOOD [BC] Urgent CULTURE BLOOD [BC] Urgent Blood Culture x2 Reflex Set [OM.PC] Urgent - Assessment/Plan Last 24 Hours: My Active Orders 12/19/19 16:15 Sodium Chloride 0.9% [Normal Saline] 1,000 ml IV ASDIRECTED 12/19/19 16:34 CULTURE URINE [RM] Stat 12/19/19 16:51 CULTURE BLOOD [BC] Urgent CULTURE BLOOD [BC] Urgent Blood Culture x2 Reflex Set [OM.PC] Urgent
[2019-12-19] MEDS ORDERED: Albuterol 0.083% 2.5 MG/3 ML Neb Soln NEB PRN (17:59)
[2019-12-19] MEDS ORDERED: Docusate Sodium 100 MG Cap PO PRN (17:59)
[2019-12-19] MEDS ORDERED: Ondansetron 4 MG/2 ML SDV IV PRN (17:59)
[2019-12-19] MEDS ORDERED: Cetirizine 10 MG Tab PO PRN (18:10)
[2019-12-19] MEDS ORDERED: Levofloxacin/Dextrose 5%-Water 500 MG in Premix Bag 1 BAG IV SCH (18:30)
[2019-12-19] MEDS: Enoxaparin 30 MG/0.3 ML Syringe SUBCUT SCH (19:47)
[2019-12-19] MEDS: Sodium Chloride 0.9% 10 ML Syringe FLUSH PRN (21:03)
[2019-12-19] MEDS: atorvaSTATin 20 MG Tab PO SCH (21:31)
[2019-12-19] MEDS: Mirtazapine 15 MG Tab PO SCH (21:31)
[2019-12-19] MEDS: Albuterol/Ipratropium 3.0-0.5 MG/3 ML Neb Soln NEB SCH (21:34)
[2019-12-19] MEDS: Carvedilol 6.25 MG Tab PO SCH (21:34)
[2019-12-20] MEDS: Acetaminophen 500 MG Tab PO PRN ×2 (00:17→06:05)
[2019-12-20] MEDS: Albuterol/Ipratropium 3.0-0.5 MG/3 ML Neb Soln NEB SCH ×4 (06:01→20:38)
[2019-12-20] MEDS: metFORMIN 500 MG Tab PO SCH (07:55)
[2019-12-20] MEDS: Sodium Chloride 0.9% 10 ML Syringe FLUSH PRN ×2 (07:57→09:50)
[2019-12-20] MEDS ORDERED: Acetaminophen 325 MG Tab PO PRN (08:05)
--- NOTE | 2019-12-20 08:42 | PCM.HP.2 ---
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 Was brought to the ER because of confusion. A friend called her and she had remember talking to her for last 2 days. She says she's had a dry cough for a few days, couple diarrhea stools that she used Imodium 4. She's had some chills but denies fevers. A while back she had a sore throat but that went away. She does feel weak. She denies nausea , vomiting. She says some dysuria for 1 month. No hematuria or pyuria. She denies back pain. - Related Data Allergies/Adverse Reactions: Allergies Allergy/AdvReac Type Severity Reaction Status Date / Time erythromycin estolate Allergy Rash Verified 12/19/19 17:47 [From Ilosone] fenoprofen calcium Allergy Rash Verified 12/19/19 17:47 [From Nalfon] ibuprofen [From Motrin] Allergy Rash Verified 12/19/19 17:47 lidocaine Allergy Rash Verified 12/19/19 17:47 lisinopril [From Zestril] Allergy Rash Verified 12/19/19 17:47 Penicillins Allergy Rash Verified 12/19/19 17:47 phenylbutazone Allergy Rash Verified 12/19/19 17:47 [From Butazolidin] tetracycline [Tetracycline] Allergy Rash Verified 12/19/19 17:47 zucapsaicin Allergy Cannot Verified 12/19/19 17:47 Remember .zucchini Allergy Severe Anaphylactic Uncoded 04/24/19 07:51 Shock Home Medications: Home Meds Calcium Carbonate/Vitamin D3 [Calcium 600 + Vit D Tablet] 1 tab PO DAILY [History] Estrogens, Conjugated [Premarin Vaginal Crm] 1.5 gm VAG TUSA 04/25/14 [History] Mirtazapine [Remeron] 7.5 mg PO BEDTIME 04/25/14 [History] Potassium Chloride [Klor-Con 10] 10 meq PO DAILY 04/25/14 [History] Triamterene/Hydrochlorothiazid [Dyazide 37.5-25] 37.5 mg PO DAILY 04/25/14 [ History] atorvaSTATin [Lipitor] 20 mg PO BEDTIME 04/25/14 [History] metFORMIN [Glucophage] 750 mg PO ACBREAKFAST 04/25/14 [History] Acetaminophen [Tylenol Extra Strength] 500 mg PO TID PRN 11/21/16 [History] Cetirizine [ZyrTEC] 10 mg PO DAILY PRN 11/21/16 [History] Cyanocobalamin (Vitamin B-12) [Vitamin B-12] 1,000 mcg PO DAILY 11/21/16 [ History] Fosinopril [Monopril] 30 mg PO DAILY #135 12/26/16 [Rx] carvediloL [Coreg] 6.25 mg PO BID #0 tablet 12/26/16 [Rx] metFORMIN [Glucophage XR] 1,000 mg PO WITHDINNER 04/24/19 [History] Cyanocobalamin/Cobamamide [Vitamin B-12 5,000 Mcg Tab Sl] 1 each SL DAILY [History] Past Medical History HEENT History: Reports: Impaired Vision Other HEENT History: wears glasses Cardiovascular History: Reports: High Cholesterol, Hypertension Respiratory History: Reports: None Gastrointestinal History: Reports: Colon Polyp Genitourinary History: Reports: None, UTI, Recurrent [employer] History: Reports: 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 fx lower back did PT no surgery, back is good now Neurological History: Reports: Vertigo Other Neuro History: numbness rt foot Psychiatric History: Reports: Anxiety, Depression Endocrine/Metabolic History: Reports: Diabetes, Type II Hematologic History: Reports: B12 Deficiency - Infectious Disease History Infectious Disease History: Reports: Chicken Pox, Measles, Mumps, Shingles - Past Surgical History HEENT Surgical History: Reports: Cataract Surgery, Laser Surgery Other HEENT Surgeries/Procedures: bilat cataract, bilat laser surgery bilat eyes. Laser surgery after cataract surgery Cardiovascular Surgical History: Reports: None Respiratory Surgical History: Reports: None GI Surgical History: Reports: Appendectomy, Cholecystectomy, Colonoscopy Female Surgical History: Reports: Hysterectomy, Salpingo-Oophorectomy Endocrine Surgical History: Reports: None Neurological Surgical History: Reports: None Musculoskeletal Surgical History: Reports: None Dermatological Surgical History: Reports: None Social & Family History - Family History Family Medical History: Noncontributory - Tobacco Use Smoking Status *Q: Never Smoker Second Hand Smoke Exposure: No - Caffeine Use Caffeine Use: Reports: Coffee - Recreational Drug Use Recreational Drug Use: No H&P Review of Systems - Review of Systems: Review Of Systems: See Below General: Reports: Chills, Weakness HEENT: Reports: No Symptoms Pulmonary: Reports: Cough. Denies: Shortness of Breath, Wheezing, Sputum Cardiovascular: Reports: No Symptoms (X) Gastrointestinal: Reports: Diarrhea Genitourinary: Reports: Dysuria Musculoskeletal: Reports: No Symptoms Skin: Reports: No Symptoms Psychiatric: Reports: Confusion Hematologic/Lymphatic: Reports: No Symptoms Immunologic: Reports: No Symptoms Exam - Exam Exam: See Below - Vital Signs Vital Signs: Last Vital Signs Temp 99.5 F 12/20/19 07:00 Pulse 95 12/20/19 07:00 Resp 20 12/20/19 07:00 BP 98/50 L 12/20/19 07:00 Pulse Ox 95 12/20/19 07:00 Weight: 180 lb 3.2 oz - Exam General: Alert, Oriented, Cooperative HEENT: Hearing Intact, Mucosa Moist & [place], Posterior Pharynx Clear, TMs Clear Neck: Supple, Trachea Midline Lungs: Clear to Auscultation, Normal Respiratory Effort. No: Crackles, Rales Cardiovascular: Regular Rate, Regular Rhythm, Normal S1, Normal S2. No: Systolic Murmur GI/Abdominal Exam: Normal Bowel Sounds, Soft, Non-Tender, No Organomegaly, No Distention, No Abnormal Bruit, No Mass Back Exam: Normal Inspection, Full Range of Motion Extremities: Non-Tender, No Pedal Edema Skin: Warm, Dry, Intact Neurological: Normal Speech, Normal Tone Neuro Extensive - Mental Status: Alert, Oriented x3, Normal Mood/Affect, Normal Cognition Psychiatric: Alert, Normal Affect, Normal Mood - Patient Data Lab Results Last 24 hrs: Laboratory Results - last 24 hr 12/19/19 12/19/19 12/19/19 Range/Units 16:17 16:17 16:20 WBC 15.0 H (4.5-12.0) X10-3/uL RBC 4.05 (3.23-5.20) x10(6)uL Hgb 12.4 (11.5-15.5) g/dL Hct 36.8 (30.0-51.3) % MCV 90.9 (80-96) fL MCH 30.7 (27.7-33.6) pg MCHC 33.7 (32.2-35.4) g/dL RDW 12.3 (11.5-15.5) % Plt Count 202 (125-369) X10(3)uL MPV 7.7 (7.4-10.4) fL Neut % (Auto) 84.9 H (46-82) % Lymph % (Auto) 7.7 L (13-37) % [place] % (Auto) 6.9 (4-12) % Eos % (Auto) 0 L (1.0-5.0) % Baso % (Auto) 0 (0-2) % Neut # (Auto) 12.7 H (1.6-8.3) # Lymph # (Auto) 1.2 (0.6-5.0) # [place] # (Auto) 1.0 (0.0-1.3) # Eos # (Auto) 0.0 (0.0-0.8) # Baso # (Auto) 0.1 (0.0-0.2) # Add Manual Diff Neutrophils % (Manual) (46-82) % Band Neutrophils % (0-6) % Lymphocytes % (Manual) (13-37) % Monocytes % (Manual) (4-12) % Basophils % (Manual) (0-2) % Toxic Granulation (NOT SEEN) Microcytosis Sodium 131 L (135-145) mmol/L Potassium 3.7 (3.5-5.3) mmol/L Chloride 93 L (100-110) mmol/L Carbon Dioxide 27 (21-32) mmol/L BUN 43 H D (7-18) mg/dL Creatinine 1.6 H (0.55-1.02) mg/dL Est Cr Clr Drug Dosing TNP Estimated GFR (MDRD) 31 L (>60) BUN/Creatinine Ratio 26.9 H (9-20) Glucose 170 H (80-116) mg/dL Lactic Acid (0.4-2.0) mmol/L Calcium 8.6 (8.6-10.2) mg/dL Urine Color Yellow (YELLOW) Urine Appearance Clear (CLEAR) Urine pH 5.0 (5.0-6.5) Ur Specific [place] 1.020 (1.010-1.025) Urine Protein 30 H (NEGATIVE) mg/dL Urine Glucose (UA) Normal (NORMAL) mg/dL Urine Ketones Negative (NEGATIVE) mg/dL Urine Occult Blood Large H (NEGATIVE) Urine Nitrite Positive H (NEGATIVE) Urine Bilirubin Negative (NEGATIVE) Urine Urobilinogen Normal (NEGATIVE) mg/dL Ur Leukocyte Esterase Moderate H (NEGATIVE) Urine RBC 10-20 H (0-5) Urine WBC 50-75 H (0-5) Ur Squamous Epith Cells Few H (NS,R,O) Urine Bacteria Moderate H (NS) Urine Mucus Moderate H (NS) 12/19/19 12/20/19 12/20/19 Range/Units 17:05 06:05 06:05 WBC 11.9 (4.5-12.0) X10-3/uL RBC 3.49 (3.23-5.20) x10(6)uL Hgb 10.7 L (11.5-15.5) g/dL Hct 31.4 (30.0-51.3) % MCV 89.9 (80-96) fL MCH 30.5 (27.7-33.6) pg MCHC 34.0 (32.2-35.4) g/dL RDW 12.4 (11.5-15.5) % Plt Count 158 (125-369) X10(3)uL MPV 7.8 (7.4-10.4) fL Neut % (Auto) (46-82) % Lymph % (Auto) (13-37) % [place] % (Auto) (4-12) % Eos % (Auto) (1.0-5.0) % Baso % (Auto) (0-2) % Neut # (Auto) (1.6-8.3) # Lymph # (Auto) (0.6-5.0) # [place] # (Auto) (0.0-1.3) # Eos # (Auto) (0.0-0.8) # Baso # (Auto) (0.0-0.2) # Add Manual Diff Yes Neutrophils % (Manual) 78 (46-82) % Band Neutrophils % 7 H (0-6) % Lymphocytes % (Manual) 8 L (13-37) % Monocytes % (Manual) 5 (4-12) % Basophils % (Manual) 2 (0-2) % Toxic Granulation Few H (NOT SEEN) Microcytosis Moderate H Sodium 133 L (135-145) mmol/L Potassium 3.3 L (3.5-5.3) mmol/L Chloride 97 L (100-110) mmol/L Carbon Dioxide 26 (21-32) mmol/L BUN 40 H (7-18) mg/dL Creatinine 1.6 H (0.55-1.02) mg/dL Est Cr Clr Drug Dosing 26.87 Estimated GFR (MDRD) 31 L (>60) BUN/Creatinine Ratio 25.0 H (9-20) Glucose 166 H (80-116) mg/dL Lactic Acid 1.2 (0.4-2.0) mmol/L Calcium 7.8 L (8.6-10.2) mg/dL Urine Color (YELLOW) Urine Appearance (CLEAR) Urine pH (5.0-6.5) Ur Specific [place] (1.010-1.025) Urine Protein (NEGATIVE) mg/dL Urine Glucose (UA) (NORMAL) mg/dL Urine Ketones (NEGATIVE) mg/dL Urine Occult Blood (NEGATIVE) Urine Nitrite (NEGATIVE) Urine Bilirubin (NEGATIVE) Urine Urobilinogen (NEGATIVE) mg/dL Ur Leukocyte Esterase (NEGATIVE) Urine RBC (0-5) Urine WBC (0-5) Ur Squamous Epith Cells (NS,R,O) Urine Bacteria (NS) Urine Mucus (NS) Result Diagrams: 12/20/19 06:05 12/20/19 06:05 Brad Results Last 24 hrs: Microbiology 12/19/19 17:05 Aerobic Blood Culture - Preliminary Blood - Venous - Lab Draw 12/19/19 17:00 Aerobic Blood Culture - Preliminary Blood - Venous Anaerobic Blood Culture - Preliminary Sepsis Event Note - Evaluation Sepsis Screening Result: Severe Sepsis Risk - Focused Exam Vital Signs: Vital Signs Temp Pulse Pulse Resp BP BP Pulse Ox 12/20/19 07:00 99.5 F 95 20 98/50 L 95 12/20/19 04:30 97.9 F 12/20/19 00:15 101 F H 106 H 20 120/59 L 97 12/19/19 21:34 106 H 119/58 L Date Exam was Performed: 12/20/19 Time Exam was Performed: 08:36 - Problem List (1) Palliative care status SNOMED Code(s): 337673066 ICD Code: Z51.5 - ENCOUNTER FOR PALLIATIVE CARE Status: Acute Current Visit: Yes (2) LOPEZ (acute kidney injury) SNOMED Code(s): 58724306, 72733345 ICD Code: N17.9 - ACUTE KIDNEY FAILURE, UNSPECIFIED Status: Acute Current Visit: Yes (3) Dehydration SNOMED Code(s): 62716495 ICD Code: E86.0 - DEHYDRATION Status: Acute Current Visit: Yes (4) Hyponatremia SNOMED Code(s): 45065164 ICD Code: E87.1 - HYPO-OSMOLALITY AND HYPONATREMIA Status: Acute Current Visit: Yes (5) Pneumonia SNOMED Code(s): 406189403 ICD Code: J18.9 - PNEUMONIA, UNSPECIFIED ORGANISM Status: Acute Current Visit: Yes (6) UTI (urinary tract infection) SNOMED Code(s): 46616084 ICD Code: N39.0 - URINARY TRACT INFECTION, SITE NOT SPECIFIED Status: Acute Current Visit: Yes Qualifiers: Urinary tract infection type: acute cystitis (7) Blood bacterial culture positive SNOMED Code(s): 1206302136826044 ICD Code: R78.81 - BACTEREMIA Status: Acute Current Visit: Yes Problem List Initiated/Reviewed/Updated: Yes Orders Last 24hrs: Active Orders 24 hr Category Date Time Status Patient Status [ADT] Routine ADT 12/19/19 17:59 Active Blood Glucose Check, Bedside [RC] BIDMEALS Care 12/19/19 17:59 Active Height and Weight [RC] DAILY Care 12/19/19 17:59 Active Intake and Output [RC] QSHIFT Care 12/19/19 18:03 Active Oxygen Therapy [RC] PRN Care 12/19/19 17:59 Active Pulse Oximetry [RC] CONTINUOUS Care 12/19/19 18:03 Inactive RT Aerosol Therapy [RC] ASDIRECTED Care 12/19/19 18:07 Active Up With Assistance [RC] ASDIRECTED Care 12/19/19 17:59 Active VTE/DVT Education [RC] Per Unit Routine Care 12/19/19 17:59 Active Vital Signs [RC] Q4H Care 12/19/19 17:59 Active Heart Healthy Diet [DIET] Diet 12/19/19 Dinner Active CULTURE BLOOD [BC] Urgent Lab 12/19/19 17:00 Results CULTURE BLOOD [BC] Urgent Lab 12/19/19 17:05 Results CULTURE URINE [RM] Stat Lab 12/19/19 16:34 Ordered Acetaminophen [Tylenol] Med 12/20/19 08:05 Active 650 mg PO Q4H PRN Albuterol [Proventil Neb Soln] Med 12/19/19 17:59 Active 2.5 mg NEB Q2H PRN Albuterol/Ipratropium [DuoNeb 3.0-0.5 MG/3 ML] Med 12/19/19 21:00 Active 3 ml NEB QIDRT Calcium Carbonate [Oyster Shell Calcium] Med 12/20/19 09:00 Active 500 mg PO DAILY Cetirizine [ZyrTEC] Med 12/19/19 18:10 Active 10 mg PO DAILY PRN Cyanocobalamin (Vitamin B12) [Vitamin B12] Med 12/20/19 09:00 Active 1,000 mcg PO DAILY Cyanocobalamin/Cobamamide [Vitamin B-12 5,000 Mcg Tab Med 12/20/19 09:00 Pending Sl] 1 each SL DAILY Docusate Sodium [Colace] Med 12/19/19 17:59 Active 100 mg PO BID PRN Enoxaparin [Lovenox] Med 12/19/19 18:00 Active 30 mg SUBCUT Q24H Estrogens, Conjugated [Premarin Vaginal Crm] Med 12/21/19 18:10 Active 1.5 gm VAG TUSA Fosinopril [Monopril] Med 12/20/19 09:00 Active 30 mg PO DAILY Levofloxacin/Dextrose 5%-Water [Levaquin in D5W 500 MG/ Med 12/19/19 18:30 Active 100 ML] 500 mg Premix Bag 1 bag IV Q24H Mirtazapine [Remeron] Med 12/19/19 21:00 Active 7.5 mg PO BEDTIME Ondansetron [Zofran] Med 12/19/19 17:59 Active 4 mg IV Q4H PRN Potassium Chloride [Klor-Con 10] Med 12/20/19 09:00 Active 10 meq PO DAILY Sodium Chloride 0.9% [Normal Saline] 1,000 ml Med 12/19/19 16:15 Active IV ASDIRECTED Sodium Chloride 0.9% [Saline Flush] Med 12/19/19 20:50 Active 10 ml FLUSH ASDIRECTED PRN atorvaSTATin [Lipitor] Med 12/19/19 21:00 Active 20 mg PO BEDTIME carvediloL [Coreg] Med 12/19/19 21:00 Active 6.25 mg PO BID metFORMIN [Glucophage XR] Med 12/20/19 18:00 Active 1,000 mg PO WITHDINNER metFORMIN [Glucophage] Med 12/20/19 07:30 Active 750 mg PO ACBREAKFAST Blood Culture x2 Reflex Set [OM.PC] Urgent Oth 12/19/19 16:51 Ordered Resuscitation Status Routine Resus Stat 12/19/19 17:59 Ordered Medication Orders Acetaminophen (Tylenol) 650 mg PO Q4H PRN PRN Reason: Fever Albuterol (Proventil Neb Soln) 2.5 mg NEB Q2H PRN PRN Reason: Shortness Of Breath/wheezing Albuterol/Ipratropium (Duoneb 3.0-0.5 Mg/3 Ml) 3 ml NEB QIDRT [facility] Last Admin: 12/20/19 06:01 Dose: 3 ml Admin: 12/19/19 21:34 Dose: Not Given Atorvastatin Calcium (Lipitor) 20 mg PO BEDTIME [facility] Last Admin: 12/19/19 21:31 Dose: 20 mg Calcium Carbonate/Glycine (Oyster Shell Calcium) 500 mg PO DAILY [facility] Carvedilol (Coreg) 6.25 mg PO BID [facility] Last Admin: 12/19/19 21:34 Dose: 6.25 mg Cetirizine HCl (Zyrtec) 10 mg PO DAILY PRN PRN Reason: Allergies Cyanocobalamin (Vitamin B12) 1,000 mcg PO DAILY [facility] Docusate Sodium (Colace) 100 mg PO BID PRN PRN Reason: Constipation Enoxaparin Sodium (Lovenox) 30 mg SUBCUT Q24H [facility] Last Admin: 12/19/19 19:47 Dose: 30 mg Estrogens Conjugated (Premarin Vaginal Crm) 1.5 gm VAG TUSA [facility] Sodium Chloride (Normal Saline) 1,000 mls @ 999 mls/hr IV ASDIRECTED [facility] Last Admin: 12/19/19 16:55 Dose: 999 mls/hr Levofloxacin/Dextrose 500 mg/ (Premix) 100 mls @ 100 mls/hr IV Q24H [facility] Last Admin: 12/19/19 19:50 Dose: 100 mls/hr Metformin HCl (Glucophage) 750 mg PO ACBREAKFAST [facility] Last Admin: 12/20/19 07:55 Dose: 750 mg Metformin HCl (Glucophage Xr) 1,000 mg PO WITHDINNER [facility] Mirtazapine (Remeron) 7.5 mg PO BEDTIME [facility] Last Admin: 12/19/19 21:31 Dose: 7.5 mg Non-Formulary Medication (Cyanocobalamin/Cobamamide [Vitamin B-12 5,000 Mcg Tab Sl]) 1 each SL DAILY [facility] Fosinopril 20mg Ptom 30 mg PO DAILY [facility] Ondansetron HCl (Zofran) 4 mg IV Q4H PRN PRN Reason: Nausea/Vomiting Potassium Chloride (Klor-Con 10) 10 meq PO DAILY [facility] Sodium Chloride (Saline Flush) 10 ml FLUSH ASDIRECTED PRN PRN Reason: Keep Vein Open Last Admin: 12/20/19 07:57 Dose: 10 ml Admin: 12/19/19 21:03 Dose: 10 ml Assessment/Plan Comment:: 1. Admit inpatient. 2. Patient wants to be a DO NOT RESUSCITATE. 3. Lovenox for clot prophylaxis. 4. Levaquin but will add on vancomycin because she's blood culture positive. 5. Up with assist. 6. PT/OT evaluation 7. Accu-Cheks with diabetic diet 8. Continue to follow blood work. 9. Await for urine culture and sensitivity and blood culture and sensitivity. 10. Continue home medications. 11 pharmacy to manage vancomycin. - Mortality Measure Prognosis:: Good
[2019-12-20] MEDS ORDERED: Enoxaparin 30 MG/0.3 ML Syringe SUBCUT SCH (08:45)
[2019-12-20] MEDS ORDERED: [UNRECOGNIZED DRUG - OTHER] SL SCH (09:00)
[2019-12-20] MEDS ORDERED: Potassium Chloride 10 MEQ Tab.ER PO SCH (09:00)
[2019-12-20] MEDS: Calcium Carbonate 500 MG Tablet PO SCH (09:43)
[2019-12-20] MEDS: Potassium Chloride 20 MEQ Tab.ER PO SCH (09:43)
[2019-12-20] MEDS: Cyanocobalamin (Vitamin B12) 1,000 MCG Tab PO SCH (09:44)
[2019-12-20] MEDS: Sodium Chloride 0.9% 1,000 ML IV SCH ×2 (09:50→23:41)
[2019-12-20] MEDS: Carvedilol 6.25 MG Tab PO SCH ×2 (09:51→20:38)
[2019-12-20] MEDS: FOSINOPRIL 20 MG PO SCH (09:51)
[2019-12-20] MEDS: metFORMIN 1,000 MG Tab PO SCH (17:01)
[2019-12-20] MEDS: Enoxaparin 30 MG/0.3 ML Syringe SUBCUT SCH (17:02)
[2019-12-20] MEDS: Levofloxacin/Dextrose 5%-Water 50 ML IV SCH (20:38)
[2019-12-20] MEDS: Mirtazapine 15 MG Tab PO SCH (20:38)
[2019-12-20] MEDS: atorvaSTATin 20 MG Tab PO SCH (20:38)
[2019-12-21] MEDS: Albuterol/Ipratropium 3.0-0.5 MG/3 ML Neb Soln NEB SCH ×4 (06:22→20:58)
[2019-12-21] MEDS: metFORMIN 500 MG Tab PO SCH (07:03)
[2019-12-21] MEDS: Carvedilol 6.25 MG Tab PO SCH ×2 (08:09→20:57)
[2019-12-21] MEDS: Calcium Carbonate 500 MG Tablet PO SCH (08:10)
[2019-12-21] MEDS: Potassium Chloride 20 MEQ Tab.ER PO SCH (08:10)
[2019-12-21] MEDS: Cyanocobalamin (Vitamin B12) 1,000 MCG Tab PO SCH (08:11)
[2019-12-21] MEDS: FOSINOPRIL 20 MG PO SCH (08:13)
--- NOTE | 2019-12-21 08:13 | PCM.PN ---
- General Info Date of Service: 12/21/19 Admission Dx/Problem (Free Text): Patient states overall she feels better. She says her head still little foggy but has improved. She says she is cold at night. She denies fevers, dysuria, prior, hematuria or she has a dry cough but no shortness of breath or chest pain. The nurses state that her cognition is much improved. 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 - Patient Data Vitals - Most Recent: Last Vital Signs Temp 100.0 F 12/21/19 04:00 Pulse 94 12/21/19 06:22 Resp 18 12/21/19 04:00 BP 120/60 12/21/19 04:00 Pulse Ox 96 12/21/19 04:00 Weight - Most Recent: 181 lb 1.6 oz I&O - Last 24 Hours: Intake & Output 12/20/19 12/21/19 12/21/19 22:59 06:59 14:59 Intake Total 940 120 Output Total 203 350 Balance 737 -230 Lab Results Last 24 Hours: Laboratory Results - last 24 hr 12/20/19 12/21/19 12/21/19 Range/Units 17:01 06:20 06:20 WBC 8.1 (4.5-12.0) X10-3/uL RBC 3.37 (3.23-5.20) x10(6)uL Hgb 10.3 L (11.5-15.5) g/dL Hct 30.1 (30.0-51.3) % MCV 89.1 (80-96) fL MCH 30.4 (27.7-33.6) pg MCHC 34.2 (32.2-35.4) g/dL RDW 12.7 (11.5-15.5) % Plt Count 166 (125-369) X10(3)uL MPV 7.9 (7.4-10.4) fL Neut % (Auto) 70.7 (46-82) % Lymph % (Auto) 17.2 (13-37) % [place] % (Auto) 10.5 (4-12) % Eos % (Auto) 1 (1.0-5.0) % Baso % (Auto) 1 (0-2) % Neut # (Auto) 5.6 (1.6-8.3) # Lymph # (Auto) 1.4 (0.6-5.0) # [place] # (Auto) 0.9 (0.0-1.3) # Eos # (Auto) 0.1 (0.0-0.8) # Baso # (Auto) 0.1 (0.0-0.2) # Sodium 133 L (135-145) mmol/L Potassium 3.3 L (3.5-5.3) mmol/L Chloride 100 (100-110) mmol/L Carbon Dioxide 24 (21-32) mmol/L BUN 33 H (7-18) mg/dL Creatinine 1.3 H (0.55-1.02) mg/dL Est Cr Clr Drug Dosing 33.08 mL/min Estimated GFR (MDRD) 39 L (>60) BUN/Creatinine Ratio 25.4 H (9-20) Glucose 151 H (80-116) mg/dL POC Glucose 183 H (80-116) mg/dL Calcium 7.2 L (8.6-10.2) mg/dL Total Bilirubin 0.7 (0.1-1.3) mg/dL AST 26 H (5-25) IU/L ALT 22 (12-36) U/L Alkaline Phosphatase 80 (56-112) IU/L Total Protein 6.0 (6.0-8.0) g/dL Albumin 2.2 L (3.2-4.6) g/dL Globulin 3.8 g/dL Albumin/Globulin Ratio 0.6 04/25/20 Range/Units 06:20 WBC (4.5-12.0) X10-3/uL RBC (3.23-5.20) x10(6)uL Hgb (11.5-15.5) g/dL Hct (30.0-51.3) % MCV (80-96) fL MCH (27.7-33.6) pg MCHC (32.2-35.4) g/dL RDW (11.5-15.5) % Plt Count (125-369) X10(3)uL MPV (7.4-10.4) fL Neut % (Auto) (46-82) % Lymph % (Auto) (13-37) % [place] % (Auto) (4-12) % Eos % (Auto) (1.0-5.0) % Baso % (Auto) (0-2) % Neut # (Auto) (1.6-8.3) # Lymph # (Auto) (0.6-5.0) # [place] # (Auto) (0.0-1.3) # Eos # (Auto) (0.0-0.8) # Baso # (Auto) (0.0-0.2) # Sodium (135-145) mmol/L Potassium (3.5-5.3) mmol/L Chloride (100-110) mmol/L Carbon Dioxide (21-32) mmol/L BUN (7-18) mg/dL Creatinine (0.55-1.02) mg/dL Est Cr Clr Drug Dosing mL/min Estimated GFR (MDRD) (>60) BUN/Creatinine Ratio (9-20) Glucose (80-116) mg/dL POC Glucose 154 H (80-116) mg/dL Calcium (8.6-10.2) mg/dL Total Bilirubin (0.1-1.3) mg/dL AST (5-25) IU/L ALT (12-36) U/L Alkaline Phosphatase (56-112) IU/L Total Protein (6.0-8.0) g/dL Albumin (3.2-4.6) g/dL Globulin g/dL Albumin/Globulin Ratio Brad Results Last 24 Hours: Microbiology 12/19/19 17:00 Aerobic Blood Culture - Preliminary Blood - Venous Gram Negative Rods Anaerobic Blood Culture - Preliminary 12/19/19 17:05 Aerobic Blood Culture - Preliminary Blood - Venous - Lab Draw Anaerobic Blood Culture - Preliminary NO GROWTH AFTER 1 DAY 12/19/19 16:34 Urine Culture - Preliminary Urine, Voided Gram Negative Rods Med Orders - Current: Current Medications Acetaminophen (Tylenol) 650 mg PO Q4H PRN PRN Reason: Fever Last Admin: 12/20/19 17:01 Dose: 650 mg Albuterol (Proventil Neb Soln) 2.5 mg NEB Q2H PRN PRN Reason: Shortness Of Breath/wheezing Albuterol/Ipratropium (Duoneb 3.0-0.5 Mg/3 Ml) 3 ml NEB QIDRT [facility] Last Admin: 12/21/19 06:22 Dose: 3 ml Atorvastatin Calcium (Lipitor) 20 mg PO BEDTIME [facility] Last Admin: 12/20/19 20:38 Dose: 20 mg Calcium Carbonate/Glycine (Oyster Shell Calcium) 500 mg PO DAILY [facility] Last Admin: 12/20/19 09:43 Dose: 500 mg Carvedilol (Coreg) 6.25 mg PO BID [facility] Last Admin: 12/20/19 20:38 Dose: 6.25 mg Cetirizine HCl (Zyrtec) 10 mg PO DAILY PRN PRN Reason: Allergies Cyanocobalamin (Vitamin B12) 1,000 mcg PO DAILY [facility] Last Admin: 12/20/19 09:44 Dose: 1,000 mcg Docusate Sodium (Colace) 100 mg PO BID PRN PRN Reason: Constipation Enoxaparin Sodium (Lovenox) 30 mg SUBCUT Q24H [facility] Last Admin: 12/20/19 17:02 Dose: 30 mg Estrogens Conjugated (Premarin Vaginal Crm) 1.5 gm VAG TUSA [facility] Sodium Chloride (Normal Saline) 1,000 mls @ 75 mls/hr IV ASDIRECTED [facility] Last Admin: 12/20/19 23:41 Dose: 75 mls/hr Vancomycin HCl 1.25 gm/ Sodium (Chloride) 250 mls @ 167 mls/hr IV Q24H [facility] Last Admin: 12/20/19 09:52 Dose: 167 mls/hr Levofloxacin/Dextrose (Levaquin In D5w 250 Mg/50 Ml) 50 mls @ 50 mls/hr IV Q24H [facility] Last Admin: 12/20/19 20:38 Dose: 50 mls/hr Metformin HCl (Glucophage) 750 mg PO ACBREAKFAST [facility] Last Admin: 12/21/19 07:03 Dose: 750 mg Metformin HCl (Glucophage) 1,000 mg PO WITHDINNER [facility] Last Admin: 12/20/19 17:01 Dose: 1,000 mg Mirtazapine (Remeron) 7.5 mg PO BEDTIME [facility] Last Admin: 12/20/19 20:38 Dose: 7.5 mg Fosinopril 20mg Ptom 30 mg PO DAILY [facility] Last Admin: 12/20/19 09:51 Dose: 30 mg Ondansetron HCl (Zofran) 4 mg IV Q4H PRN PRN Reason: Nausea/Vomiting Potassium Chloride (Klor-Con M20) 20 meq PO DAILY [facility] Last Admin: 12/20/19 09:43 Dose: 20 meq Sodium Chloride (Saline Flush) 10 ml FLUSH ASDIRECTED PRN PRN Reason: Keep Vein Open Last Admin: 12/20/19 09:50 Dose: 10 ml Vancomycin HCl (Pharmacy To Dose - Vancomycin) 1 dose .XX ASDIRECTED [facility] Discontinued Medications Acetaminophen (Tylenol Extra Strength) 500 mg PO TID PRN PRN Reason: Pain/Fever Last Admin: 12/20/19 06:05 Dose: 500 mg Levofloxacin/Dextrose 500 mg/ (Premix) 100 mls @ 100 mls/hr IV Q24H [facility] Last Admin: 12/19/19 19:50 Dose: 100 mls/hr Ondansetron HCl (Zofran) 4 mg IVPUSH ONETIME ONE Stop: 12/19/19 16:08 Last Admin: 12/19/19 16:55 Dose: 4 mg - Exam General: Alert, Oriented, Cooperative Lungs: Clear to Auscultation, Normal Respiratory Effort Cardiovascular: Regular Rate, Regular Rhythm, No Murmurs Extremities: No Pedal Edema Neurological: Normal Speech Psy/Mental Status: Alert, Normal Affect, Normal Mood Sepsis Event Note - Evaluation Sepsis Screening Result: No Definite Risk - Focused Exam Vital Signs: Vital Signs Temp Pulse Pulse Resp BP BP Pulse Ox 12/21/19 06:22 94 12/21/19 04:00 100.0 F 88 18 120/60 96 12/20/19 20:38 94 88 105/64 Date Exam was Performed: 12/21/19 Time Exam was Performed: 08:11 - Problem List & Annotations (1) Palliative care status SNOMED Code(s): 000402883 Code(s): Z51.5 - ENCOUNTER FOR PALLIATIVE CARE Status: Acute Current Visit: Yes (2) LOPEZ (acute kidney injury) SNOMED Code(s): 29391283, 10354979 Code(s): N17.9 - ACUTE KIDNEY FAILURE, UNSPECIFIED Status: Acute Current Visit: Yes (3) Dehydration SNOMED Code(s): 74706361 Code(s): E86.0 - DEHYDRATION Status: Acute Current Visit: Yes (4) Hyponatremia SNOMED Code(s): 97971332 Code(s): E87.1 - HYPO-OSMOLALITY AND HYPONATREMIA Status: Acute Current Visit: Yes (5) Pneumonia SNOMED Code(s): 376473174 Code(s): J18.9 - PNEUMONIA, UNSPECIFIED ORGANISM Status: Acute Current Visit: Yes (6) UTI (urinary tract infection) SNOMED Code(s): 94968804 Code(s): N39.0 - URINARY TRACT INFECTION, SITE NOT SPECIFIED Status: Acute Current Visit: Yes Qualifiers: Urinary tract infection type: acute cystitis (7) Blood bacterial culture positive SNOMED Code(s): 6783707395872731 Code(s): R78.81 - BACTEREMIA Status: Acute Current Visit: Yes (8) Anemia SNOMED Code(s): 021147250 Code(s): D64.9 - ANEMIA, UNSPECIFIED Status: Acute Current Visit: Yes (9) Hyponatremia SNOMED Code(s): 27452157 Code(s): E87.1 - HYPO-OSMOLALITY AND HYPONATREMIA Status: Acute Current Visit: No - Problem List Review Problem List Initiated/Reviewed/Updated: Yes - My Orders Last 24 Hours: My Active Orders 12/20/19 08:05 Acetaminophen [Tylenol] 650 mg PO Q4H PRN 12/20/19 08:44 Consult to Occupational Therapy [OT Evaluation and Treatment] [CONS] Routine Consult to Physical Therapy [PT Evaluation and Treatment] [CONS] Routine 12/20/19 09:00 Potassium Chloride [Klor-Con M20] 20 meq PO DAILY 12/20/19 09:15 Pharmacy to Dose - Vancomycin 1 dose .XX ASDIRECTED 12/20/19 09:30 Vancomycin 1.25 gm Sodium Chloride 0.9% [Normal Saline] 250 ml IV Q24H 12/20/19 20:00 Levofloxacin/Dextrose 5%-Water [Levaquin in D5W 250 MG/50 ML] 50 ml IV Q24H 12/20/19 Lunch Consistent Carbohydrate Diet [DIET] 12/23/19 09:00 VANCOMYCIN TROUGH [CHEM] Timed - Plan Plan:: 1. Urine and one blood culture grew gram-negative rods. Suspect this is coming from the urine more so than the lung. 2. Continue current care. 3. Recheck electrolytes in a.m.
[2019-12-21] MEDS ORDERED: Calcium Carbonate 500 MG Tablet PO SCH (09:00)
[2019-12-21] MEDS: Hydrochlorothiazide/Triamterene 25-37.5 Tab PO SCH (12:34)
[2019-12-21] MEDS: Sodium Chloride 0.9% 1,000 ML IV SCH (15:05)
[2019-12-21] MEDS ORDERED: Loperamide 2 MG Cap PO PRN (16:33)
[2019-12-21] MEDS: Enoxaparin 30 MG/0.3 ML Syringe SUBCUT SCH (17:58)
[2019-12-21] MEDS: metFORMIN 1,000 MG Tab PO SCH (17:58)
[2019-12-21] MEDS ORDERED: metFORMIN 500 MG Tab PO SCH (18:00)
[2019-12-21] MEDS ORDERED: Estrogens,Conjugated Vaginal Crm 30 GM Tube VAG SCH (18:10)
[2019-12-21] MEDS: Levofloxacin/Dextrose 5%-Water 50 ML IV SCH (19:36)
[2019-12-21] MEDS: atorvaSTATin 20 MG Tab PO SCH (20:57)
[2019-12-21] MEDS: Mirtazapine 15 MG Tab PO SCH (20:57)
[2019-12-22] MEDS: Sodium Chloride 0.9% 1,000 ML IV SCH (04:18)
[2019-12-22] MEDS: Albuterol/Ipratropium 3.0-0.5 MG/3 ML Neb Soln NEB SCH ×3 (06:20→16:15)
--- NOTE | 2019-12-22 07:10 | PCM.PN ---
- General Info Date of Service: 12/22/19 Admission Dx/Problem (Free Text): Patient states she's feeling better. She has no dysuria, pyuria, hematuria. Cough has improved still nonproductive it's less. He complained of some diarrhea. Nurses set of just mostly soft still but not real diarrhea. She's not had any stool since last night. She has some bloating yesterday and that's improved also. Mentations improved - Patient Data Vitals - Most Recent: Last Vital Signs Temp 97.7 F 12/22/19 01:00 Pulse 87 12/22/19 06:20 Resp 18 12/22/19 01:00 BP 151/72 H 12/22/19 01:00 Pulse Ox 96 12/22/19 06:20 Weight - Most Recent: 183 lb 12.8 oz I&O - Last 24 Hours: Intake & Output 12/21/19 12/22/19 12/22/19 22:59 06:59 14:59 Intake Total 517 610 Output Total 200 Balance 317 610 Lab Results Last 24 Hours: Laboratory Results - last 24 hr 12/21/19 12/22/19 Range/Units 17:21 06:20 Sodium 135 (135-145) mmol/L Potassium 3.9 (3.5-5.3) mmol/L Chloride 101 (100-110) mmol/L Carbon Dioxide 23 (21-32) mmol/L BUN 28 H (7-18) mg/dL Creatinine 1.2 H (0.55-1.02) mg/dL Est Cr Clr Drug Dosing 35.83 mL/min Estimated GFR (MDRD) 43 L (>60) BUN/Creatinine Ratio 23.3 H (9-20) Glucose 143 H (80-116) mg/dL POC Glucose 139 H (80-116) mg/dL Calcium 8.0 L (8.6-10.2) mg/dL Total Bilirubin 0.7 (0.1-1.3) mg/dL AST 32 H D (5-25) IU/L ALT 30 D (12-36) U/L Alkaline Phosphatase 96 (56-112) IU/L Total Protein 6.5 (6.0-8.0) g/dL Albumin 2.4 L (3.2-4.6) g/dL Globulin 4.1 g/dL Albumin/Globulin Ratio 0.6 Brad Results Last 24 Hours: Microbiology 12/19/19 17:05 Aerobic Blood Culture - Final Blood - Venous - Lab Draw Anaerobic Blood Culture - Preliminary NO GROWTH AFTER 2 DAYS 12/19/19 17:00 Aerobic Blood Culture - Final Blood - Venous Enterobacter Hormaechei Anaerobic Blood Culture - Final Med Orders - Current: Current Medications Acetaminophen (Tylenol) 650 mg PO Q4H PRN PRN Reason: Fever Last Admin: 12/20/19 17:01 Dose: 650 mg Albuterol (Proventil Neb Soln) 2.5 mg NEB Q2H PRN PRN Reason: Shortness Of Breath/wheezing Albuterol/Ipratropium (Duoneb 3.0-0.5 Mg/3 Ml) 3 ml NEB QIDRT [facility] Last Admin: 12/22/19 06:20 Dose: 3 ml Atorvastatin Calcium (Lipitor) 20 mg PO BEDTIME [facility] Last Admin: 12/21/19 20:57 Dose: 20 mg Calcium Carbonate/Glycine (Oyster Shell Calcium) 500 mg PO DAILY [facility] Last Admin: 12/21/19 08:10 Dose: 500 mg Carvedilol (Coreg) 6.25 mg PO BID [facility] Last Admin: 12/21/19 20:57 Dose: 6.25 mg Cetirizine HCl (Zyrtec) 10 mg PO DAILY PRN PRN Reason: Allergies Cyanocobalamin (Vitamin B12) 1,000 mcg PO DAILY [facility] Last Admin: 12/21/19 08:11 Dose: 1,000 mcg Docusate Sodium (Colace) 100 mg PO BID PRN PRN Reason: Constipation Enoxaparin Sodium (Lovenox) 30 mg SUBCUT Q24H [facility] Last Admin: 12/21/19 17:58 Dose: 30 mg Estrogens Conjugated (Premarin Vaginal Crm) 1.5 gm VAG TUSA [facility] Sodium Chloride (Normal Saline) 1,000 mls @ 75 mls/hr IV ASDIRECTED [facility] Last Admin: 12/22/19 04:18 Dose: 75 mls/hr Vancomycin HCl 1.25 gm/ Sodium (Chloride) 250 mls @ 167 mls/hr IV Q24H [facility] Last Admin: 12/21/19 10:14 Dose: 167 mls/hr Levofloxacin/Dextrose (Levaquin In D5w 250 Mg/50 Ml) 50 mls @ 50 mls/hr IV Q24H [facility] Last Admin: 12/21/19 19:36 Dose: 50 mls/hr Loperamide HCl (Imodium) 2 mg PO Q6H PRN PRN Reason: Diarrhea Metformin HCl (Glucophage) 750 mg PO ACBREAKFAST [facility] Last Admin: 12/21/19 07:03 Dose: 750 mg Metformin HCl (Glucophage) 1,000 mg PO WITHDINNER [facility] Last Admin: 12/21/19 17:58 Dose: 1,000 mg Mirtazapine (Remeron) 7.5 mg PO BEDTIME [facility] Last Admin: 12/21/19 20:57 Dose: 7.5 mg Fosinopril 20mg Ptom 30 mg PO DAILY [facility] Last Admin: 12/21/19 08:13 Dose: 30 mg Ondansetron HCl (Zofran) 4 mg IV Q4H PRN PRN Reason: Nausea/Vomiting Potassium Chloride (Klor-Con M20) 20 meq PO DAILY [facility] Last Admin: 12/21/19 08:10 Dose: 20 meq Sodium Chloride (Saline Flush) 10 ml FLUSH ASDIRECTED PRN PRN Reason: Keep Vein Open Last Admin: 12/20/19 09:50 Dose: 10 ml Triamterene/HCTZ (Maxzide 25-37.5 Mg) 1 each PO DAILY [facility] Last Admin: 12/21/19 12:34 Dose: 1 each Vancomycin HCl (Pharmacy To Dose - Vancomycin) 1 dose .XX ASDIRECTED [facility] Discontinued Medications Acetaminophen (Tylenol Extra Strength) 500 mg PO TID PRN PRN Reason: Pain/Fever Last Admin: 12/20/19 06:05 Dose: 500 mg Calcium Carbonate/Glycine (Oyster Shell Calcium) 500 mg PO DAILY [facility] Levofloxacin/Dextrose 500 mg/ (Premix) 100 mls @ 100 mls/hr IV Q24H [facility] Last Admin: 12/19/19 19:50 Dose: 100 mls/hr Metformin HCl (Glucophage) 1,000 mg PO WITHDINNER [facility] Ondansetron HCl (Zofran) 4 mg IVPUSH ONETIME ONE Stop: 12/19/19 16:08 Last Admin: 12/19/19 16:55 Dose: 4 mg - Exam General: Alert, Oriented, Cooperative Lungs: Clear to Auscultation, Normal Respiratory Effort Cardiovascular: Regular Rate, Regular Rhythm, No Murmurs Extremities: No Pedal Edema Psy/Mental Status: Alert, Normal Affect, Normal Mood Sepsis Event Note - Evaluation Sepsis Screening Result: No Definite Risk - Focused Exam Vital Signs: Vital Signs Temp Pulse Pulse Resp BP BP Pulse Ox 12/22/19 06:20 87 12/22/19 01:00 97.7 F 95 18 151/72 H 98 12/21/19 21:00 93 12/21/19 20:57 93 142/67 H 12/21/19 20:00 97.7 F 93 18 142/67 H 100 Pulse Ox 12/22/19 06:20 96 12/22/19 01:00 12/21/19 21:00 100 12/21/19 20:57 12/21/19 20:00 Date Exam was Performed: 12/22/19 Time Exam was Performed: 07:08 - Problem List & Annotations (1) Palliative care status SNOMED Code(s): 935728224 Code(s): Z51.5 - ENCOUNTER FOR PALLIATIVE CARE Status: Acute Current Visit: Yes (2) LOPEZ (acute kidney injury) SNOMED Code(s): 90957512, 19611134 Code(s): N17.9 - ACUTE KIDNEY FAILURE, UNSPECIFIED Status: Acute Current Visit: Yes (3) Dehydration SNOMED Code(s): 79876712 Code(s): E86.0 - DEHYDRATION Status: Acute Current Visit: Yes (4) Hyponatremia SNOMED Code(s): 38281550 Code(s): E87.1 - HYPO-OSMOLALITY AND HYPONATREMIA Status: Acute Current Visit: Yes (5) Pneumonia SNOMED Code(s): 469405887 Code(s): J18.9 - PNEUMONIA, UNSPECIFIED ORGANISM Status: Acute Current Visit: Yes (6) UTI (urinary tract infection) SNOMED Code(s): 35496463 Code(s): N39.0 - URINARY TRACT INFECTION, SITE NOT SPECIFIED Status: Acute Current Visit: Yes Qualifiers: Urinary tract infection type: acute cystitis (7) Blood bacterial culture positive SNOMED Code(s): 6666500627405362 Code(s): R78.81 - BACTEREMIA Status: Acute Current Visit: Yes (8) Anemia SNOMED Code(s): 690156157 Code(s): D64.9 - ANEMIA, UNSPECIFIED Status: Acute Current Visit: Yes (9) Hyponatremia SNOMED Code(s): 30006955 Code(s): E87.1 - HYPO-OSMOLALITY AND HYPONATREMIA Status: Acute Current Visit: No - Problem List Review Problem List Initiated/Reviewed/Updated: Yes - My Orders Last 24 Hours: My Active Orders 12/21/19 09:00 HCTZ/Triamterene [Maxzide 25-37.5 MG] 1 each PO DAILY 12/21/19 16:33 Loperamide [Imodium] 2 mg PO Q6H PRN 12/21/19 17:49 Vital Signs [RC] QSHIFT 12/23/19 09:00 VANCOMYCIN TROUGH [CHEM] Timed - Plan Plan:: 1. DC IV fluids and saline lock IV 2. DC vancomycin continue Levaquin. 3. Blood cultures reviewed and awaiting urine culture. 4. Encourage up in chair and frequent ambulation today.
[2019-12-22] MEDS: Sodium Chloride 0.9% 10 ML Syringe FLUSH PRN ×2 (07:30→21:02)
[2019-12-22] MEDS: metFORMIN 500 MG Tab PO SCH (08:05)
[2019-12-22] MEDS: Carvedilol 6.25 MG Tab PO SCH ×2 (08:06→21:22)
[2019-12-22] MEDS: FOSINOPRIL 20 MG PO SCH (08:07)
[2019-12-22] MEDS: Potassium Chloride 20 MEQ Tab.ER PO SCH (08:10)
[2019-12-22] MEDS: Cyanocobalamin (Vitamin B12) 1,000 MCG Tab PO SCH (08:11)
[2019-12-22] MEDS: Calcium Carbonate 500 MG Tablet PO SCH (08:11)
[2019-12-22] MEDS: Hydrochlorothiazide/Triamterene 25-37.5 Tab PO SCH (08:22)
[2019-12-22] MEDS ORDERED: Albuterol/Ipratropium 3.0-0.5 MG/3 ML Neb Soln NEB PRN (16:30)
[2019-12-22] MEDS: Enoxaparin 30 MG/0.3 ML Syringe SUBCUT SCH (17:41)
[2019-12-22] MEDS: metFORMIN 1,000 MG Tab PO SCH (17:41)
[2019-12-22] MEDS: Levofloxacin/Dextrose 5%-Water 50 ML IV SCH (20:58)
[2019-12-22] MEDS: atorvaSTATin 20 MG Tab PO SCH (21:22)
[2019-12-22] MEDS: Mirtazapine 15 MG Tab PO SCH (21:22)
--- NOTE | 2019-12-23 08:20 | PCM.PN ---
- General Info Date of Service: 12/23/19 Admission Dx/Problem (Free Text): Patient states she still feels a little fuzzy in the head at times. The nurses state that she was clear during labor little confused at night. She still feels cold and I but that's ongoing. No fevers, dysuria, pyuria, hematuria. She does have a dry cough that's improving. Some shortness of breath with walking. - Patient Data Vitals - Most Recent: Last Vital Signs Temp 98 F 12/23/19 00:00 Pulse 101 H 12/23/19 00:00 Resp 18 12/23/19 00:00 BP 159/78 H 12/23/19 00:00 Pulse Ox 98 12/23/19 00:00 Weight - Most Recent: 183 lb 12.8 oz I&O - Last 24 Hours: Intake & Output 12/22/19 12/23/19 12/23/19 22:59 06:59 14:59 Intake Total 50 Balance 50 Lab Results Last 24 Hours: Laboratory Results - last 24 hr 12/22/19 12/23/19 Range/Units 17:32 06:54 POC Glucose 144 H 141 H (80-116) mg/dL Brad Results Last 24 Hours: Microbiology 12/19/19 16:34 Urine Culture - Final Urine, Voided Enterobacter Hormaechei 12/19/19 17:05 Aerobic Blood Culture - Final Blood - Venous - Lab Draw Anaerobic Blood Culture - Preliminary NO GROWTH AFTER 3 DAYS Med Orders - Current: Current Medications Acetaminophen (Tylenol) 650 mg PO Q4H PRN PRN Reason: Fever Last Admin: 12/20/19 17:01 Dose: 650 mg Albuterol/Ipratropium (Duoneb 3.0-0.5 Mg/3 Ml) 3 ml NEB Q4H PRN PRN Reason: Shortness of Breath Last Admin: 12/22/19 21:34 Dose: 3 ml Atorvastatin Calcium (Lipitor) 20 mg PO BEDTIME [facility] Last Admin: 12/22/19 21:22 Dose: 20 mg Calcium Carbonate/Glycine (Oyster Shell Calcium) 500 mg PO DAILY [facility] Last Admin: 12/22/19 08:11 Dose: 500 mg Carvedilol (Coreg) 6.25 mg PO BID [facility] Last Admin: 12/22/19 21:22 Dose: 6.25 mg Cetirizine HCl (Zyrtec) 10 mg PO DAILY PRN PRN Reason: Allergies Cyanocobalamin (Vitamin B12) 1,000 mcg PO DAILY [facility] Last Admin: 12/22/19 08:11 Dose: 1,000 mcg Docusate Sodium (Colace) 100 mg PO BID PRN PRN Reason: Constipation Enoxaparin Sodium (Lovenox) 30 mg SUBCUT Q24H [facility] Last Admin: 12/22/19 17:41 Dose: 30 mg Estrogens Conjugated (Premarin Vaginal Crm) 1.5 gm VAG TUSA [facility] Levofloxacin (Levaquin) 500 mg PO Q24H [facility] Metformin HCl (Glucophage) 750 mg PO ACBREAKFAST [facility] Last Admin: 12/22/19 08:05 Dose: 750 mg Metformin HCl (Glucophage) 1,000 mg PO WITHDINNER [facility] Last Admin: 12/22/19 17:41 Dose: 1,000 mg Mirtazapine (Remeron) 7.5 mg PO BEDTIME [facility] Last Admin: 12/22/19 21:22 Dose: 7.5 mg Fosinopril 20mg Ptom 30 mg PO DAILY [facility] Last Admin: 12/22/19 08:07 Dose: 30 mg Potassium Chloride (Klor-Con M20) 20 meq PO DAILY [facility] Last Admin: 12/22/19 08:10 Dose: 20 meq Sodium Chloride (Saline Flush) 10 ml FLUSH ASDIRECTED PRN PRN Reason: Keep Vein Open Last Admin: 12/22/19 21:02 Dose: 10 ml Triamterene/HCTZ (Maxzide 25-37.5 Mg) 1 each PO DAILY [facility] Last Admin: 12/22/19 08:22 Dose: 1 each Discontinued Medications Acetaminophen (Tylenol Extra Strength) 500 mg PO TID PRN PRN Reason: Pain/Fever Last Admin: 12/20/19 06:05 Dose: 500 mg Albuterol (Proventil Neb Soln) 2.5 mg NEB Q2H PRN PRN Reason: Shortness Of Breath/wheezing Albuterol/Ipratropium (Duoneb 3.0-0.5 Mg/3 Ml) 3 ml NEB QIDRT [facility] Last Admin: 12/22/19 16:15 Dose: 3 ml Calcium Carbonate/Glycine (Oyster Shell Calcium) 500 mg PO DAILY [facility] Sodium Chloride (Normal Saline) 1,000 mls @ 75 mls/hr IV ASDIRECTED [facility] Last Admin: 12/22/19 04:18 Dose: 75 mls/hr Levofloxacin/Dextrose 500 mg/ (Premix) 100 mls @ 100 mls/hr IV Q24H [facility] Last Admin: 12/19/19 19:50 Dose: 100 mls/hr Vancomycin HCl 1.25 gm/ Sodium (Chloride) 250 mls @ 167 mls/hr IV Q24H [facility] Last Admin: 12/21/19 10:14 Dose: 167 mls/hr Levofloxacin/Dextrose (Levaquin In D5w 250 Mg/50 Ml) 50 mls @ 50 mls/hr IV Q24H [facility] Last Admin: 12/22/19 20:58 Dose: 50 mls/hr Loperamide HCl (Imodium) 2 mg PO Q6H PRN PRN Reason: Diarrhea [facility] Ond[facility] (Zofran) 4 mg IVPUSH ONETIME ONE Stop: 12/19/19 16:08 Last Admin: 12/19/19 16:55 Dose: 4 mg Ondansetron HCl (Zofran) 4 mg IV Q4H PRN PRN Reason: Nausea/Vomiting Vancomycin HCl (Pharmacy To Dose - Vancomycin) 1 dose .XX ASDIRECTED [facility] - Exam General: Alert, Oriented, Cooperative Lungs: Clear to Auscultation, Normal Respiratory Effort Cardiovascular: Regular Rate, Regular Rhythm, No Murmurs GI/Abdominal Exam: Soft, Non-Tender Extremities: No Pedal Edema Sepsis Event Note - Evaluation Sepsis Screening Result: No Definite Risk - Focused Exam Vital Signs: Vital Signs Temp Pulse Pulse Resp BP BP Pulse Ox 12/23/19 00:00 98 F 101 H 18 159/78 H 98 12/22/19 21:22 101 H 159/78 H Date Exam was Performed: 12/23/19 Time Exam was Performed: 08:18 - Problem List & Annotations (1) Palliative care status SNOMED Code(s): 454664747 Code(s): Z51.5 - ENCOUNTER FOR PALLIATIVE CARE Status: Acute Current Visit: Yes (2) LOPEZ (acute kidney injury) SNOMED Code(s): 03179381, 66132730 Code(s): N17.9 - ACUTE KIDNEY FAILURE, UNSPECIFIED Status: Acute Current Visit: Yes (3) Dehydration SNOMED Code(s): 26563256 Code(s): E86.0 - DEHYDRATION Status: Acute Current Visit: Yes (4) Hyponatremia SNOMED Code(s): 37169564 Code(s): E87.1 - HYPO-OSMOLALITY AND HYPONATREMIA Status: Acute Current Visit: Yes (5) Pneumonia SNOMED Code(s): 346058680 Code(s): J18.9 - PNEUMONIA, UNSPECIFIED ORGANISM Status: Acute Current Visit: Yes (6) UTI (urinary tract infection) SNOMED Code(s): 27290914 Code(s): N39.0 - URINARY TRACT INFECTION, SITE NOT SPECIFIED Status: Acute Current Visit: Yes Qualifiers: Urinary tract infection type: acute cystitis (7) Blood bacterial culture positive SNOMED Code(s): 7542511748205167 Code(s): R78.81 - BACTEREMIA Status: Acute Current Visit: Yes (8) Anemia SNOMED Code(s): 777364171 Code(s): D64.9 - ANEMIA, UNSPECIFIED Status: Acute Current Visit: Yes (9) Hyponatremia SNOMED Code(s): 76218504 Code(s): E87.1 - HYPO-OSMOLALITY AND HYPONATREMIA Status: Acute Current Visit: No - Problem List Review Problem List Initiated/Reviewed/Updated: Yes - My Orders Last 24 Hours: My Active Orders 12/22/19 16:30 Albuterol/Ipratropium [DuoNeb 3.0-0.5 MG/3 ML] 3 ml NEB Q4H PRN 12/23/19 08:30 levoFLOXacin [Levaquin] 500 mg PO Q24H - Plan Plan:: 1. DC IV Levaquin and by mouth Levaquin. 2. Patient will accept home health. 3. PT to assess how she's doing physically today. 4. Anticipate discharge tomorrow
[2019-12-23] MEDS: Carvedilol 6.25 MG Tab PO SCH ×2 (08:27→20:26)
[2019-12-23] MEDS: metFORMIN 500 MG Tab PO SCH (08:27)
[2019-12-23] MEDS: Calcium Carbonate 500 MG Tablet PO SCH (08:28)
[2019-12-23] MEDS: Cyanocobalamin (Vitamin B12) 1,000 MCG Tab PO SCH (08:28)
[2019-12-23] MEDS: Potassium Chloride 20 MEQ Tab.ER PO SCH (08:28)
[2019-12-23] MEDS: FOSINOPRIL 20 MG PO SCH (08:29)
[2019-12-23] MEDS: Hydrochlorothiazide/Triamterene 25-37.5 Tab PO SCH (09:09)
[2019-12-23] MEDS: metFORMIN 1,000 MG Tab PO SCH (17:41)
[2019-12-23] MEDS: Enoxaparin 30 MG/0.3 ML Syringe SUBCUT SCH (17:42)
[2019-12-23] MEDS ORDERED: Levofloxacin 250 MG Tab PO SCH (20:00)
[2019-12-23] MEDS: Mirtazapine 15 MG Tab PO SCH (20:26)
[2019-12-23] MEDS: atorvaSTATin 20 MG Tab PO SCH (20:26)
--- NOTE | 2019-12-24 07:41 | PCM.PN ---
- General Info Date of Service: 12/24/19 Admission Dx/Problem (Free Text): Patient doing well. She has no concerns. No dysuria, pyuria, hematuria, fevers. Mild cough - Patient Data Vitals - Most Recent: Last Vital Signs Temp 97.9 F 12/24/19 06:20 Pulse 104 H 12/24/19 06:20 Resp 16 12/24/19 06:20 BP 163/87 H 12/24/19 06:20 Pulse Ox 97 12/24/19 06:20 Weight - Most Recent: 183 lb 12.8 oz I&O - Last 24 Hours: Intake & Output 12/23/19 12/24/19 12/24/19 22:59 06:59 14:59 Intake Total 200 Output Total 0 Balance 200 Lab Results Last 24 Hours: Laboratory Results - last 24 hr 12/23/19 12/24/19 Range/Units 17:37 06:19 POC Glucose 153 H 122 H (80-116) mg/dL Brad Results Last 24 Hours: Microbiology 12/19/19 17:05 Aerobic Blood Culture - Final Blood - Venous - Lab Draw Anaerobic Blood Culture - Preliminary NO GROWTH AFTER 4 DAYS Med Orders - Current: Current Medications Acetaminophen (Tylenol) 650 mg PO Q4H PRN PRN Reason: Fever Last Admin: 12/20/19 17:01 Dose: 650 mg Albuterol/Ipratropium (Duoneb 3.0-0.5 Mg/3 Ml) 3 ml NEB Q4H PRN PRN Reason: Shortness of Breath Last Admin: 12/22/19 21:34 Dose: 3 ml Atorvastatin Calcium (Lipitor) 20 mg PO BEDTIME [facility] Last Admin: 12/23/19 20:26 Dose: 20 mg Calcium Carbonate/Glycine (Oyster Shell Calcium) 500 mg PO DAILY [facility] Last Admin: 12/23/19 08:28 Dose: 500 mg Carvedilol (Coreg) 6.25 mg PO BID [facility] Last Admin: 12/23/19 20:26 Dose: 6.25 mg Cetirizine HCl (Zyrtec) 10 mg PO DAILY PRN PRN Reason: Allergies Cyanocobalamin (Vitamin B12) 1,000 mcg PO DAILY [facility] Last Admin: 12/23/19 08:28 Dose: 1,000 mcg Docusate Sodium (Colace) 100 mg PO BID PRN PRN Reason: Constipation Enoxaparin Sodium (Lovenox) 30 mg SUBCUT Q24H [facility] Last Admin: 12/23/19 17:42 Dose: 30 mg Estrogens Conjugated (Premarin Vaginal Crm) 1.5 gm VAG TUSA [facility] Levofloxacin (Levaquin) 250 mg PO Q24H [facility] Last Admin: 12/23/19 20:20 Dose: 250 mg Metformin HCl (Glucophage) 750 mg PO ACBREAKFAST [facility] Last Admin: 12/23/19 08:27 Dose: 750 mg Metformin HCl (Glucophage) 1,000 mg PO WITHDINNER [facility] Last Admin: 12/23/19 17:41 Dose: 1,000 mg Mirtazapine (Remeron) 7.5 mg PO BEDTIME [facility] Last Admin: 12/23/19 20:26 Dose: 7.5 mg Fosinopril 20mg Ptom 30 mg PO DAILY [facility] Last Admin: 12/23/19 08:29 Dose: 30 mg Potassium Chloride (Klor-Con M20) 20 meq PO DAILY [facility] Last Admin: 12/23/19 08:28 Dose: 20 meq Sodium Chloride (Saline Flush) 10 ml FLUSH ASDIRECTED PRN PRN Reason: Keep Vein Open Last Admin: 12/22/19 21:02 Dose: 10 ml Triamterene/HCTZ (Maxzide 25-37.5 Mg) 1 each PO DAILY [facility] Last Admin: 12/23/19 09:09 Dose: 1 each Discontinued Medications Acetaminophen (Tylenol Extra Strength) 500 mg PO TID PRN PRN Reason: Pain/Fever Last Admin: 12/20/19 06:05 Dose: 500 mg Albuterol (Proventil Neb Soln) 2.5 mg NEB Q2H PRN PRN Reason: Shortness Of Breath/wheezing Albuterol/Ipratropium (Duoneb 3.0-0.5 Mg/3 Ml) 3 ml NEB QIDRT [facility] Last Admin: 12/22/19 16:15 Dose: 3 ml Calcium Carbonate/Glycine (Oyster Shell Calcium) 500 mg PO DAILY [facility] Sodium Chloride (Normal Saline) 1,000 mls @ 75 mls/hr IV ASDIRECTED [facility] Last Admin: 12/22/19 04:18 Dose: 75 mls/hr Levofloxacin/Dextrose 500 mg/ (Premix) 100 mls @ 100 mls/hr IV Q24H [facility] Last Admin: 12/19/19 19:50 Dose: 100 mls/hr Vancomycin HCl 1.25 gm/ Sodium (Chloride) 250 mls @ 167 mls/hr IV Q24H [facility] Last Admin: 12/21/19 10:14 Dose: 167 mls/hr Levofloxacin/Dextrose (Levaquin In D5w 250 Mg/50 Ml) 50 mls @ 50 mls/hr IV Q24H [facility] Last Admin: 12/22/19 20:58 Dose: 50 mls/hr Loperamide HCl (Imodium) 2 mg PO Q6H PRN PRN Reason: Diarrhea Metformin HCl (Glucophage) [facility] Ondansetron HCl (Zofran) 4 mg IVPUSH ONETIME ONE Stop: 12/19/19 16:08 Last Admin: 12/19/19 16:55 Dose: 4 mg Ondansetron HCl (Zofran) 4 mg IV Q4H PRN PRN Reason: Nausea/Vomiting Vancomycin HCl (Pharmacy To Dose - Vancomycin) 1 dose .XX ASDIRECTED [facility] - Exam General: Alert, Oriented Lungs: Normal Respiratory Effort Sepsis Event Note - Evaluation Sepsis Screening Result: No Definite Risk - Focused Exam Vital Signs: Vital Signs Temp Pulse Pulse Resp BP BP Pulse Ox 12/24/19 06:20 97.9 F 104 H 16 163/87 H 97 12/24/19 01:15 97.4 F 94 16 141/74 H 97 12/23/19 20:26 102 H 160/88 H Date Exam was Performed: 12/24/19 Time Exam was Performed: 07:39 - Problem List & Annotations (1) Palliative care status SNOMED Code(s): 060520514 Code(s): Z51.5 - ENCOUNTER FOR PALLIATIVE CARE Status: Acute Current Visit: Yes (2) LOPEZ (acute kidney injury) SNOMED Code(s): 36887634, 63548398 Code(s): N17.9 - ACUTE KIDNEY FAILURE, UNSPECIFIED Status: Acute Current Visit: Yes (3) Dehydration SNOMED Code(s): 22922159 Code(s): E86.0 - DEHYDRATION Status: Acute Current Visit: Yes (4) Hyponatremia SNOMED Code(s): 29911865 Code(s): E87.1 - HYPO-OSMOLALITY AND HYPONATREMIA Status: Acute Current Visit: Yes (5) Pneumonia SNOMED Code(s): 716652547 Code(s): J18.9 - PNEUMONIA, UNSPECIFIED ORGANISM Status: Acute Current Visit: Yes (6) UTI (urinary tract infection) SNOMED Code(s): 37956143 Code(s): N39.0 - URINARY TRACT INFECTION, SITE NOT SPECIFIED Status: Acute Current Visit: Yes Qualifiers: Urinary tract infection type: acute cystitis (7) Blood bacterial culture positive SNOMED Code(s): 0089029206413395 Code(s): R78.81 - BACTEREMIA Status: Acute Current Visit: Yes (8) Anemia SNOMED Code(s): 879262338 Code(s): D64.9 - ANEMIA, UNSPECIFIED Status: Acute Current Visit: Yes (9) Hyponatremia SNOMED Code(s): 31778832 Code(s): E87.1 - HYPO-OSMOLALITY AND HYPONATREMIA Status: Acute Current Visit: No - Problem List Review Problem List Initiated/Reviewed/Updated: Yes - My Orders Last 24 Hours: My Active Orders 12/23/19 20:00 levoFLOXacin [Levaquin] 250 mg PO Q24H - Plan Plan:: 1. Charge to home on oral Levaquin. Patient is asking for some antinausea medication. Zofran will be given. She has no history of prolonged QT. 2. Home health
--- NOTE | 2019-12-24 07:48 | PCM.DCSUM1 ---
Discharge Summary - Hospital Course Free Text/Narrative:: Hospital course-patient was admitted with UTI and pneumonia. Chest x-ray showed possible little infiltrate in the lingula area. Patient had urine culture and blood cultures. COVID 19 test not done. She was placed on Levaquin IV 250 mg culture pending was elevated. She was put on IV fluids and she was running a temperature. Patient's blood was initially positive so we added on vancomycin. He grew out gram-negative elena in his urine grew out the same thing. Both the urine and the blood grew out Enterobacter Hormaeche. When the culture came back we stopped the vancomycin continued Levaquin. Patient had some confusion at night but mentating quite nicely most of the time. Her creatinine improved well with her electrolytes. Fever stopped and she is physical therapy which she did quite well. She wanted to use a walker so we will send her with a walker. 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 Was brought to the ER because of confusion. A friend called her and she had remember talking to her for last 2 days. She says she's had a dry cough for a few days, couple diarrhea stools that she used Imodium 4. She's had some chills but denies fevers. A while back she had a sore throat but that went away. She does feel weak. She denies nausea, vomiting. She says some dysuria for 1 month. No hematuria or pyuria. She denies back pain Diagnosis: Stroke: No - Discharge Data Discharge Date: 12/24/19 Discharge Disposition: Home, W Home Health Agency 06 Condition: Good - Referral to Home Health Date of Face to Face Encounter: 12/24/19 Reason for Homebound Status: Status post bacteremia, medications, weakness, confusion Primary Care Physician: Familia Ogden MD Skilled Need: 1. Strengthening, ADLs, home safety, medication management - Discharge Diagnosis/Problem(s) (1) Palliative care status SNOMED Code(s): 400802114 ICD Code: Z51.5 - ENCOUNTER FOR PALLIATIVE CARE Status: Acute Current Visit: Yes (2) LOPEZ (acute kidney injury) SNOMED Code(s): 51642175, 97977008 ICD Code: N17.9 - ACUTE KIDNEY FAILURE, UNSPECIFIED Status: Acute Current Visit: Yes (3) Dehydration SNOMED Code(s): 75214151 ICD Code: E86.0 - DEHYDRATION Status: Acute Current Visit: Yes (4) Hyponatremia SNOMED Code(s): 93579857 ICD Code: E87.1 - HYPO-OSMOLALITY AND HYPONATREMIA Status: Acute Current Visit: Yes (5) Pneumonia SNOMED Code(s): 248621510 ICD Code: J18.9 - PNEUMONIA, UNSPECIFIED ORGANISM Status: Acute Current Visit: Yes (6) UTI (urinary tract infection) SNOMED Code(s): 68599682 ICD Code: N39.0 - URINARY TRACT INFECTION, SITE NOT SPECIFIED Status: Acute Current Visit: Yes Qualifiers: Urinary tract infection type: acute cystitis (7) Blood bacterial culture positive SNOMED Code(s): 1004077166208350 ICD Code: R78.81 - BACTEREMIA Status: Acute Current Visit: Yes (8) Anemia SNOMED Code(s): 967538098 ICD Code: D64.9 - ANEMIA, UNSPECIFIED Status: Acute Current Visit: Yes (9) Hyponatremia SNOMED Code(s): 10140087 ICD Code: E87.1 - HYPO-OSMOLALITY AND HYPONATREMIA Status: Acute Current Visit: No - Patient Summary/Data Consults: Consultations 12/20/19 08:44 Consult to Occupational Therapy [OT Evaluation and Treatment] [CONS] Routine Please Evaluate and Treat. OT Reason for Consult: Strengthening This query below is only for informational purposes and is not editable. Admission Diagnosis/Problem: Pneumonia Consult to Physical Therapy [PT Evaluation and Treatment] [CONS] Routine Please Evaluate and Treat. PT Reason for Consult: Strengthening This query below is only for informational purposes and is not editable. Admission Diagnosis/Problem: Pneumonia - Patient Instructions Diet: Diabetic Diet Activity: As Tolerated Driving: May Drive Today Showering/Bathing: May Shower Notify Provider of: Fever, Increased Pain, Nausea and/or Vomiting Other/Special Instructions: 1. Recheck with Dr. Ogden in 1 week with BMP, CBC. - Discharge Plan Prescriptions/Med Rec: levoFLOXacin [Levaquin] 250 mg PO Q24H #7 tablet ondansetron HCL [Zofran] 4 mg PO TID PRN #20 tablet PRN Reason: Nausea Home Medications: Home Meds Calcium Carbonate/Vitamin D3 [Calcium 600 + Vit D Tablet] 1 tab PO DAILY [History] Estrogens, Conjugated [Premarin Vaginal Crm] 1.5 gm VAG TUSA 04/25/14 [History] Mirtazapine [Remeron] 7.5 mg PO BEDTIME 04/25/14 [History] Potassium Chloride [Klor-Con 10] 10 meq PO DAILY 04/25/14 [History] Triamterene/Hydrochlorothiazid [Dyazide 37.5-25] 37.5 mg PO DAILY 04/25/14 [ History] atorvaSTATin [Lipitor] 20 mg PO BEDTIME 04/25/14 [History] metFORMIN [Glucophage] 750 mg PO ACBREAKFAST 04/25/14 [History] Acetaminophen [Tylenol Extra Strength] 500 mg PO TID PRN 11/21/16 [History] Cetirizine [ZyrTEC] 10 mg PO DAILY PRN 11/21/16 [History] Cyanocobalamin (Vitamin B-12) [Vitamin B-12] 1,000 mcg PO DAILY 11/21/16 [ History] Fosinopril [Monopril] 30 mg PO DAILY #135 12/26/16 [Rx] carvediloL [Coreg] 6.25 mg PO BID #0 tablet 12/26/16 [Rx] metFORMIN [Glucophage] 1,000 mg PO WITHDINNER 12/20/19 [History] levoFLOXacin [Levaquin] 250 mg PO Q24H #7 tablet 12/24/19 [Rx] ondansetron HCL [Zofran] 4 mg PO TID PRN #20 tablet 12/24/19 [Rx] Patient Handouts: Fall Prevention in Hospitals, Adult, Venous Thromboembolism Prevention Forms: ED Department Discharge Referrals: Familia Ogden MD [Primary Care Provider] - - Discharge Summary/Plan Comment DC Time >30 min.: No - Patient Data Vitals - Most Recent: Last Vital Signs Temp 97.9 F 12/24/19 06:20 Pulse 104 H 12/24/19 06:20 Resp 16 12/24/19 06:20 BP 163/87 H 12/24/19 06:20 Pulse Ox 97 12/24/19 06:20 Weight - Most Recent: 183 lb 12.8 oz I&O - Last 24 hours: Intake & Output 12/23/19 12/24/19 12/24/19 22:59 06:59 14:59 Intake Total 200 Output Total 0 Balance 200 Lab Results - Last 24 hrs: Laboratory Results - last 24 hr 12/23/19 12/24/19 Range/Units 17:37 06:19 POC Glucose 153 H 122 H (80-116) mg/dL [facility] Results - Last 24 hrs: Microbiology 12/19/19 17:05 Aerobic Blood Culture - Final Blood - Venous - Lab Draw Anaerobic Blood Culture - Preliminary NO GROWTH AFTER 4 DAYS Med Orders - Current: Current Medications Acetaminophen (Tylenol) 650 mg PO Q4H PRN PRN Reason: Fever Last Admin: 12/20/19 17:01 Dose: 650 mg Albuterol/Ipratropium (Duoneb 3.0-0.5 Mg/3 Ml) 3 ml NEB Q4H PRN PRN Reason: Shortness of Breath Last Admin: 12/22/19 21:34 Dose: 3 ml Atorvastatin Calcium (Lipitor) 20 mg PO BEDTIME [facility] Last Admin: 12/23/19 20:26 Dose: 20 mg Calcium Carbonate/Glycine (Oyster Shell Calcium) 500 mg PO DAILY [facility] Last Admin: 12/23/19 08:28 Dose: 500 mg Carvedilol (Coreg) 6.25 mg PO BID [facility] Last Admin: 12/23/19 20:26 Dose: 6.25 mg Cetirizine HCl (Zyrtec) 10 mg PO DAILY PRN PRN Reason: Allergies Cyanocobalamin (Vitamin B12) 1,000 mcg PO DAILY [facility] Last Admin: 12/23/19 08:28 Dose: 1,000 mcg Docusate Sodium (Colace) 100 mg PO BID PRN PRN Reason: Constipation Enoxaparin Sodium (Lovenox) 30 mg SUBCUT Q24H [facility] Last Admin: 12/23/19 17:42 Dose: 30 mg Estrogens Conjugated (Premarin Vaginal Crm) 1.5 gm VAG TUSA [facility] Levofloxacin (Levaquin) 250 mg PO Q24H [facility] Last Admin: 12/23/19 20:20 Dose: 250 mg Metformin HCl (Glucophage) 750 mg PO ACBREAKFAST [facility] Last Admin: 12/23/19 08:27 Dose: 750 mg Metformin HCl (Glucophage) 1,000 mg PO WITHDINNER [facility] Last Admin: 12/23/19 17:41 Dose: 1,000 mg Mirtazapine (Remeron) 7.5 mg PO BEDTIME [facility] Last Admin: 12/23/19 20:26 Dose: 7.5 mg Fosinopril 20mg Ptom 30 mg PO DAILY [facility] Last Admin: 12/23/19 08:29 Dose: 30 mg Potassium Chloride (Klor-Con M20) 20 meq PO DAILY [facility] Last Admin: 12/23/19 08:28 Dose: 20 meq Sodium Chloride (Saline Flush) 10 ml FLUSH ASDIRECTED PRN PRN Reason: Keep Vein Open Last Admin: 12/22/19 21:02 Dose: 10 ml Triamterene/HCTZ (Maxzide 25-37.5 Mg) 1 each PO DAILY [facility] Last Admin: 12/23/19 09:09 Dose: 1 each Discontinued Medications Acetaminophen (Tylenol Extra Strength) 500 mg PO TID PRN PRN Reason: Pain/Fever Last Admin: 12/20/19 06:05 Dose: 500 mg Albuterol (Proventil Neb Soln) 2.5 mg NEB Q2H PRN PRN Reason: Shortness Of Breath/wheezing Albuterol/Ipratropium (Duoneb 3.0-0.5 Mg/3 Ml) 3 ml NEB QIDRT [facility] Last Admin: 12/22/19 16:15 Dose: 3 ml Calcium Carbonate/Glycine (Oyster Shell Calcium) 500 mg PO DAILY [facility] Sodium Chloride (Normal Saline) 1,000 mls @ 75 mls/hr IV ASDIRECTED [facility] Last Admin: 12/22/19 04:18 Dose: 75 mls/hr Levofloxacin/Dextrose 500 mg/ (Premix) 100 mls @ 100 mls/hr IV Q24H [facility] Last Admin: 12/19/19 19:50 Dose: 100 mls/hr Vancomycin HCl 1.25 gm/ Sodium (Chloride) 250 mls @ 167 mls/hr IV Q24H [facility] Last Admin: 12/21/19 10:14 Dose: 167 mls/hr Levofloxacin/Dextrose (Levaquin In D5w 250 Mg/50 Ml) 50 mls @ 50 mls/hr IV Q24H [facility] Last Admin: 12/22/19 20:58 Dose: 50 mls/hr Loperamide HCl (Imodium) 2 mg PO Q6H PRN PRN Reason: Diarrhea Metformin HCl (Glucophage) [facility] Ondansetron HCl (Zofran) 4 mg IVPUSH ONETIME ONE Stop: 12/19/19 16:08 Last Admin: 12/19/19 16:55 Dose: 4 mg Ondansetron HCl (Zofran) 4 mg IV Q4H PRN PRN Reason: Nausea/Vomiting Vancomycin HCl (Pharmacy To Dose - Vancomycin) 1 dose .XX ASDIRECTED [facility]
[2019-12-24] MEDS: metFORMIN 500 MG Tab PO SCH (08:02)
[2019-12-24] MEDS: Carvedilol 6.25 MG Tab PO SCH (08:07)
[2019-12-24] MEDS: Hydrochlorothiazide/Triamterene 25-37.5 Tab PO SCH (08:11)
[2019-12-24] MEDS: Potassium Chloride 20 MEQ Tab.ER PO SCH (08:11)
[2019-12-24] MEDS: FOSINOPRIL 20 MG PO SCH (08:11)
[2019-12-24] MEDS: Cyanocobalamin (Vitamin B12) 1,000 MCG Tab PO SCH (08:12)
[2019-12-24] MEDS: Calcium Carbonate 500 MG Tablet PO SCH (08:12)
[2019-12-24 08:13] VITALS: BP 141/68; PULSE 90
[2019-12-24] MEDS ORDERED: Loperamide 2 MG Cap PO ONE ×2 (09:27→12:48)
== END 2019-12-24 15:55 | disposition home health service (06) | DRG 194 ==
LOC: FB.ED 15:36 → FB.MS 17:50 → UNDOADMIN 17:50 → FB.MS 17:59
PROVIDERS: ADMIT Emergency Medicine; ATTEND Family Medicine
DX: J18.9 Pneumonia, unspecified organism (principal); N39.0 Urinary tract infection, site not specified; E86.0 Dehydration; N17.9 Acute kidney failure, unspecified; N30.00 Acute cystitis without hematuria; E87.1 Hypo-osmolality and hyponatremia; Z51.5 Encounter for palliative care; D64.9 Anemia, unspecified; E78.00 Pure hypercholesterolemia, unspecified; I10 Essential (primary) hypertension; Z79.890 Hormone replacement therapy; F41.9 Anxiety disorder, unspecified; F32.9 Major depressive disorder, single episode, unspecified; E11.9 Type 2 diabetes mellitus without complications; Z88.8 Allergy status to other drugs, medicaments and biological substances; Z79.84 Long term (current) use of oral hypoglycemic drugs; Z79.899 Other long term (current) drug therapy
CPT/HCPCS: 36415; 71046; 80048; 80053; 81001; 82962; 83605; 85025; 87040; 87077; 87086; 87088; 87186; 94640; 94760; 96361; 96374; 97161-GP; 97165-GO; 97530-GO; 99284; 99285-25; A9270-GY; J1650; J1956; J2405; J3370; J7030; J7050; J7620-GY

== ENCOUNTER 2020-09-20 10:12 | Observation (INO) | payer MEDICARE, BC ==
[2020-09-20] MEDS ORDERED: Sodium Chloride 0.9% 10 ML Syringe FLUSH PRN (10:32)
[2020-09-20] MEDS ORDERED: Sodium Chloride 0.9% 500 ML IV ONE ×2 (10:37→11:31)
--- NOTE | 2020-09-20 10:42 | EDM.PDOC ---
ED HPI GENERAL MEDICAL PROBLEM - General Chief Complaint: Genitourinary Problem Stated Complaint: UTI Time Seen by Provider: 09/20/20 10:38 Source of Information: Reports: Patient History Limitations: Reports: No Limitations - History of Present Illness INITIAL COMMENTS - FREE TEXT/NARRATIVE: Presents with dysuria, chills, and feels "flakey in the head." Onset this morning. Diagnosed with UTI @2 weeks ago, prescribed Cipro but stopped it after 3 days because she developed diarrhea. She was not prescribed an alternate antibiotic. Patient had similar symptoms 11/2019 when had urosepsis. Denies abdominal pain or N/V/D. She has had a productive cough for @6 months. Onset: Today Duration: Day(s): (1) - Related Data Allergies Allergy/AdvReac Type Severity Reaction Status Date / Time erythromycin estolate Allergy Rash Verified 09/20/20 10:28 [From Ilosone] fenoprofen calcium Allergy Rash Verified 09/20/20 10:28 [From Nalfon] ibuprofen [From Motrin] Allergy Rash Verified 09/20/20 10:28 lidocaine Allergy Rash Verified 09/20/20 10:28 lisinopril [From Zestril] Allergy Rash Verified 09/20/20 10:28 Penicillins Allergy Rash Verified 09/20/20 10:28 phenylbutazone Allergy Rash Verified 09/20/20 10:28 [From Butazolidin] tetracycline [Tetracycline] Allergy Rash Verified 09/20/20 10:28 zucapsaicin Allergy Cannot Verified 09/20/20 10:28 Remember .zucchini Allergy Severe Anaphylactic Uncoded 09/20/20 10:28 Shock Home Meds: Home Meds Calcium Carbonate/Vitamin D3 [Calcium 600 + Vit D Tablet] 1 tab PO DAILY 04/25/14 [History] Estrogens, Conjugated [Premarin Vaginal Crm] 1.5 gm VAG TUSA 04/25/14 [History] Mirtazapine [Remeron] 7.5 mg PO BEDTIME 04/25/14 [History] Potassium Chloride [Klor-Con 10] 10 meq PO DAILY 04/25/14 [History] Triamterene/Hydrochlorothiazid [Dyazide 37.5-25] 37.5 mg PO DAILY 04/25/14 [History] atorvaSTATin [Lipitor] 20 mg PO BEDTIME 04/25/14 [History] metFORMIN [Glucophage] 750 mg PO ACBREAKFAST 04/25/14 [History] Acetaminophen [Tylenol Extra Strength] 500 mg PO TID PRN 11/21/16 [History] Cetirizine [ZyrTEC] 10 mg PO DAILY PRN 11/21/16 [History] Cyanocobalamin (Vitamin B-12) [Vitamin B-12] 1,000 mcg PO DAILY 11/21/16 [History] Fosinopril [Monopril] 30 mg PO DAILY #135 12/26/16 [Rx] carvediloL [Coreg] 6.25 mg PO BID #0 tablet 12/26/16 [Rx] metFORMIN [Glucophage] 1,000 mg PO WITHDINNER 12/20/19 [History] Past Medical History HEENT History: Reports: Impaired Vision Other HEENT History: wears glasses Cardiovascular History: Reports: High Cholesterol, Hypertension Respiratory History: Reports: None Gastrointestinal History: Reports: Colon Polyp Genitourinary History: Reports: None, UTI, Recurrent [employer] History: Reports: 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 fx lower back did PT no surgery, back is good now Neurological History: Reports: Vertigo Other Neuro History: numbness rt foot Psychiatric History: Reports: Anxiety, Depression Endocrine/Metabolic History: Reports: Diabetes, Type II Hematologic History: Reports: B12 Deficiency - Infectious Disease History Infectious Disease History: Reports: Chicken Pox, Measles, Mumps, Shingles - Past Surgical History HEENT Surgical History: Reports: Cataract Surgery, Laser Surgery Other HEENT Surgeries/Procedures: bilat cataract, bilat laser surgery bilat eyes. Laser surgery after cataract surgery Cardiovascular Surgical History: Reports: None Respiratory Surgical History: Reports: None GI Surgical History: Reports: Appendectomy, Cholecystectomy, Colonoscopy Female Surgical History: Reports: Hysterectomy, Salpingo-Oophorectomy Endocrine Surgical History: Reports: None Neurological Surgical History: Reports: None Musculoskeletal Surgical History: Reports: None Dermatological Surgical History: Reports: None Social & Family History - Family History Family Medical History: No Pertinent Family History - Caffeine Use Caffeine Use: Reports: Coffee ED ROS GENERAL - Review of Systems Review Of Systems: Comprehensive ROS is negative, except as noted in HPI. ED EXAM, GENERAL - Physical Exam Exam: See Below Exam Limited By: No Limitations General Appearance: Alert, WD/WN, No Apparent Distress Throat/Mouth: No Airway Compromise Head: Atraumatic, Normocephalic Neck: Full Range of Motion Respiratory/Chest: No Respiratory Distress, Lungs Clear, Normal Breath Sounds Cardiovascular: Regular Rate, Rhythm, No Murmur GI/Abdominal: Normal Bowel Sounds, Soft, Non-Tender, No Distention Back Exam: Full Range of Motion Extremities: Normal Range of Motion Neurological: Alert, Oriented, Normal Cognition Psychiatric: Normal Affect, Normal Mood Skin Exam: Warm, Dry, Intact Course - Vital Signs Last Recorded V/S: Last Vital Signs Temp 36.7 C 09/20/20 10:16 Pulse 93 09/20/20 10:16 Resp 20 09/20/20 10:16 BP 150/58 H 09/20/20 10:16 Pulse Ox 99 09/20/20 10:16 - Orders/Labs/Meds Orders: Active Orders 24 hr Category Date Time Status Admission Status [Patient Status] [ADT] Routine ADT 09/20/20 14:15 Ordered CXR [Chest 2V] [CR] Stat Exams 09/20/20 10:38 Taken CULTURE BLOOD [BC] Urgent Lab 09/20/20 10:40 Received CULTURE BLOOD [BC] Urgent Lab 09/20/20 10:40 Received CULTURE URINE [RM] Stat Lab 09/20/20 10:20 Received Sodium Chloride 0.9% [Saline Flush] Med 09/20/20 10:32 Active 10 ml FLUSH ASDIRECTED PRN Blood Culture x2 Reflex Set [OM.PC] Urgent Oth 09/20/20 10:32 Ordered Saline Lock Insert [OM.PC] Routine Oth 09/20/20 10:32 Ordered Medication Orders Sodium Chloride (Saline Flush) 10 ml FLUSH ASDIRECTED PRN PRN Reason: Keep Vein Open Last Admin: 09/20/20 11:05 Dose: 10 ml Documented by: ZAYRA Labs: Laboratory Tests 09/20/20 09/20/20 09/20/20 Range/Units 10:20 10:40 10:40 WBC 7.4 (3.0-10.3) x10-3/uL RBC 4.10 (3.60-5.20) x10(6)uL Hgb 12.0 (11.4-15.5) g/dL Hct 36.0 (34.2-48.2) % MCV 87.9 (76.7-100.5) fL MCH 29.2 (23.9-33.9) pg MCHC 33.3 (31.9-34.8) g/dL RDW 13.4 (12.3-16.5) % Plt Count 214 (151-488) x10(3)uL MPV 8.9 (7.1-12.4) fL Neut % (Auto) 72.4 (30.8-76.2) % Lymph % (Auto) 19.7 (18.4-52.1) % [place] % (Auto) 5.1 (4.4-15.7) % Eos % (Auto) 2.2 (0.6-8.1) % Baso % (Auto) 0.6 (0.2-1.5) % Neut # (Auto) 5.4 (1.5-6.3) x10-3/uL Lymph # (Auto) 1.5 (1.0-4.4) x10-3/uL [place] # (Auto) 0.4 (0.3-1.0) x10-3/uL Eos # (Auto) 0.2 (0.0-0.8) x10-3/uL Baso # (Auto) 0.0 (0.0-0.1) x10-3/uL Sodium 132 L (135-145) mmol/L Potassium 3.8 (3.5-5.3) mmol/L Chloride 95 L D (100-110) mmol/L Carbon Dioxide 26 (21-32) mmol/L BUN 19 H (7-18) mg/dL Creatinine 1.1 H (0.55-1.02) mg/dL Est Cr Clr Drug Dosing 32.87 mL/min Estimated GFR (MDRD) 47 L (>60) BUN/Creatinine Ratio 17.3 (9-20) Glucose 176 H (80-116) mg/dL Lactic Acid (0.4-2.0) mmol/L Calcium 8.7 (8.6-10.2) mg/dL Total Bilirubin 0.5 (0.1-1.3) mg/dL AST 20 D (5-25) IU/L ALT 24 D (12-36) U/L Alkaline Phosphatase 74 (56-112) IU/L Total Protein 7.5 (6.0-8.0) g/dL Albumin 3.8 (3.2-4.6) g/dL Globulin 3.7 g/dL Albumin/Globulin Ratio 1.0 Urine Color Yellow (YELLOW) Urine Appearance Clear (CLEAR) Urine pH 6.0 (5.0-6.5) Ur Specific [place] 1.005 L (1.010-1.025) Urine Protein Negative (NEGATIVE) mg/dL Urine Glucose (UA) Normal (NORMAL) mg/dL Urine Ketones Negative (NEGATIVE) mg/dL Urine Occult Blood Negative (NEGATIVE) Urine Nitrite Negative (NEGATIVE) Urine Bilirubin Negative (NEGATIVE) Urine Urobilinogen Normal (NEGATIVE) mg/dL Ur Leukocyte Esterase Negative (NEGATIVE) Urine WBC 0-5 (0-5) Ur Squamous Epith Cells Few H (NS,R,O) Urine Bacteria Few H (NS) 09/20/20 09/20/20 Range/Units 10:40 13:30 WBC (3.0-10.3) x10-3/uL RBC (3.60-5.20) x10(6)uL Hgb (11.4-15.5) g/dL Hct (34.2-48.2) % MCV (76.7-100.5) fL MCH (23.9-33.9) pg MCHC (31.9-34.8) g/dL RDW (12.3-16.5) % Plt Count (151-488) x10(3)uL MPV (7.1-12.4) fL Neut % (Auto) (30.8-76.2) % Lymph % (Auto) (18.4-52.1) % [place] % (Auto) (4.4-15.7) % Eos % (Auto) (0.6-8.1) % Baso % (Auto) (0.2-1.5) % Neut # (Auto) (1.5-6.3) x10-3/uL Lymph # (Auto) (1.0-4.4) x10-3/uL [place] # (Auto) (0.3-1.0) x10-3/uL Eos # (Auto) (0.0-0.8) x10-3/uL Baso # (Auto) (0.0-0.1) x10-3/uL Sodium (135-145) mmol/L Potassium (3.5-5.3) mmol/L Chloride (100-110) mmol/L Carbon Dioxide (21-32) mmol/L BUN (7-18) mg/dL Creatinine (0.55-1.02) mg/dL Est Cr Clr Drug Dosing mL/min Estimated GFR (MDRD) (>60) BUN/Creatinine Ratio (9-20) Glucose (80-116) mg/dL Lactic Acid 2.2 H* 2.9 H* (0.4-2.0) mmol/L Calcium (8.6-10.2) mg/dL Total Bilirubin (0.1-1.3) mg/dL AST (5-25) IU/L ALT (12-36) U/L Alkaline Phosphatase (56-112) IU/L Total Protein (6.0-8.0) g/dL Albumin (3.2-4.6) g/dL Globulin g/dL Albumin/Globulin Ratio Urine Color (YELLOW) Urine Appearance (CLEAR) Urine pH (5.0-6.5) Ur Specific [place] (1.010-1.025) Urine Protein (NEGATIVE) mg/dL Urine Glucose (UA) (NORMAL) mg/dL Urine Ketones (NEGATIVE) mg/dL Urine Occult Blood (NEGATIVE) Urine Nitrite (NEGATIVE) Urine Bilirubin (NEGATIVE) Urine Urobilinogen (NEGATIVE) mg/dL Ur Leukocyte Esterase (NEGATIVE) Urine WBC (0-5) Ur Squamous Epith Cells (NS,R,O) Urine Bacteria (NS) Meds: Medications Generic Name Dose Route Start Last Admin Trade Name Freq PRN Reason Stop Dose Admin Sodium Chloride 10 ml 09/20/20 10:32 09/20/20 11:05 Saline Flush FLUSH 10 ml ASDIRECTED PRN Administration Keep Vein Open Discontinued Medications Generic Name Dose Route Start Last Admin Trade Name Freq PRN Reason Stop Dose Admin Ceftriaxone Sodium 1 gm 09/20/20 11:08 09/20/20 11:35 Rocephin IVPUSH 09/20/20 11:09 1 gm .ONCE ONE Administration Sodium Chloride 500 mls @ 500 mls/hr 09/20/20 10:37 09/20/20 11:07 Normal Saline IV 09/20/20 11:36 500 mls/hr .BOLUS ONE Administration Sodium Chloride 500 mls @ 500 mls/hr 09/20/20 11:31 09/20/20 12:07 Normal Saline IV 09/20/20 12:30 500 mls/hr .BOLUS ONE Administration - Radiology Interpretation Free Text/Narrative:: CXR: No acute process. (ED provider interpretation) - Re-Assessments/Exams Free Text/Narrative Re-Assessment/Exam: 09/20/20 14:17 Lactate worsened after IVF bolus. Dr. Alberto accepts patient for observation admission. Departure - Departure Time of Disposition: 14:18 Disposition: Refer to Observation Condition: Good Clinical Impression: Elevated lactic acid level UTI (urinary tract infection) Qualifiers: Urinary tract infection type: acute cystitis Hematuria presence: without hematuria Qualified Code(s): N30.00 - Acute cystitis without hematuria - Discharge Information *PRESCRIPTION DRUG MONITORING PROGRAM REVIEWED*: No *COPY OF PRESCRIPTION DRUG MONITORING REPORT IN PATIENT KEVIN: Not Applicable Referrals: Familia Ogden MD [Primary Care Provider] - Forms: ED Department Discharge Sepsis Event Note (ED) - Focused Exam Vital Signs: Vital Signs Temp Pulse Resp BP Pulse Ox 09/20/20 10:16 36.7 C 93 20 150/58 H 99 - My Orders Last 24 Hours: My Active Orders 09/20/20 10:20 CULTURE URINE [RM] Stat 09/20/20 10:32 Sodium Chloride 0.9% [Saline Flush] 10 ml FLUSH ASDIRECTED PRN Blood Culture x2 Reflex Set [OM.PC] Urgent Saline Lock Insert [OM.PC] Routine 09/20/20 10:38 CXR [Chest 2V] [CR] Stat 09/20/20 10:40 CULTURE BLOOD [BC] Urgent CULTURE BLOOD [BC] Urgent 09/20/20 14:15 Admission Status [Patient Status] [ADT] Routine - Assessment/Plan Last 24 Hours: My Active Orders 09/20/20 10:20 CULTURE URINE [RM] Stat 09/20/20 10:32 Sodium Chloride 0.9% [Saline Flush] 10 ml FLUSH ASDIRECTED PRN Blood Culture x2 Reflex Set [OM.PC] Urgent Saline Lock Insert [OM.PC] Routine 09/20/20 10:38 CXR [Chest 2V] [CR] Stat 09/20/20 10:40 CULTURE BLOOD [BC] Urgent CULTURE BLOOD [BC] Urgent 09/20/20 14:15 Admission Status [Patient Status] [ADT] Routine
[2020-09-20] MEDS ORDERED: cefTRIAXone 1 GM Vial IVPUSH ONE (11:08)
[2020-09-20] MEDS: Sodium Chloride 0.9% 1,000 ML IV SCH (16:45)
[2020-09-20] MEDS: Carvedilol 6.25 MG Tab**OWN MED PO SCH (21:57)
[2020-09-20] MEDS ORDERED: Mirtazapine 15 MG Tab**OWN MED PO SCH (22:15)
[2020-09-20] MEDS: metFORMIN 500 MG Tab**OWN MED PO SCH (22:26)
[2020-09-21] MEDS: Sodium Chloride 0.9% 1,000 ML IV SCH (02:25)
--- NOTE | 2020-09-21 08:15 | PCM.HP.2 ---
H&P History of Present Illness - General Date of Service: 09/21/20 Admit Problem/Dx: Admission Diagnosis/Problem Admission Diagnosis/Problem Lactic acidosis Source of Information: Patient History Limitations: Reports: No Limitations - History of Present Illness Initial Comments - Free Text/Narative: 85 y o admitted with feeling poorly for a few months. No fever.Had a UTI 2 weeks ago,treated insufficiently. Also has a tooth that is draining. No cough. Last year had urosepsis. - Related Data Allergies/Adverse Reactions: Allergies Allergy/AdvReac Type Severity Reaction Status Date / Time erythromycin estolate Allergy Rash Verified 09/20/20 10:28 [From Ilosone] fenoprofen calcium Allergy Rash Verified 09/20/20 10:28 [From Nalfon] ibuprofen [From Motrin] Allergy Rash Verified 09/20/20 10:28 lidocaine Allergy Rash Verified 09/20/20 10:28 lisinopril [From Zestril] Allergy Rash Verified 09/20/20 10:28 Penicillins Allergy Rash Verified 09/20/20 10:28 phenylbutazone Allergy Rash Verified 09/20/20 10:28 [From Butazolidin] tetracycline [Tetracycline] Allergy Rash Verified 09/20/20 10:28 zucapsaicin Allergy Cannot Verified 09/20/20 10:28 Remember .marieucchini Allergy Severe Anaphylactic Uncoded 09/20/20 10:28 Shock Home Medications: Home Meds Calcium Carbonate/Vitamin D3 [Calcium 600 + Vit D Tablet] 1 tab PO DAILY 04/25/14 [History] Estrogens, Conjugated [Premarin Vaginal Crm] 1.5 gm VAG TUSA 04/25/14 [History] Mirtazapine [Remeron] 7.5 mg PO BEDTIME 04/25/14 [History] Potassium Chloride [Klor-Con 10] 10 meq PO DAILY 04/25/14 [History] Triamterene/Hydrochlorothiazid [Dyazide 37.5-25] 37.5 mg PO DAILY 04/25/14 [History] atorvaSTATin [Lipitor] 20 mg PO BEDTIME 04/25/14 [History] metFORMIN [Glucophage] 750 mg PO ACBREAKFAST 04/25/14 [History] Acetaminophen [Tylenol Extra Strength] 500 mg PO TID PRN 11/21/16 [History] Cetirizine [ZyrTEC] 10 mg PO DAILY PRN 11/21/16 [History] Cyanocobalamin (Vitamin B-12) [Vitamin B-12] 1,000 mcg PO DAILY 11/21/16 [History] Fosinopril [Monopril] 30 mg PO DAILY #135 12/26/16 [Rx] carvediloL [Coreg] 6.25 mg PO BID #0 tablet 12/26/16 [Rx] metFORMIN [Glucophage] 1,000 mg PO WITHDINNER 12/20/19 [History] cephALEXin [Cephalexin] 500 mg PO TID #21 capsule 09/21/20 [Rx] Past Medical History HEENT History: Reports: Impaired Vision Other HEENT History: wears glasses Cardiovascular History: Reports: High Cholesterol, Hypertension Respiratory History: Reports: None Gastrointestinal History: Reports: Colon Polyp Genitourinary History: Reports: UTI, Recurrent [employer] History: Reports: 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 fx lower back did PT no surgery, back is good now Neurological History: Reports: Vertigo Other Neuro History: numbness rt foot Psychiatric History: Reports: Anxiety, Depression Endocrine/Metabolic History: Reports: Diabetes, Type II Hematologic History: Reports: B12 Deficiency - Infectious Disease History Infectious Disease History: Reports: Chicken Pox, Measles, Mumps, Shingles - Past Surgical History HEENT Surgical History: Reports: Cataract Surgery, Laser Surgery Other HEENT Surgeries/Procedures: bilat cataract, bilat laser surgery bilat eyes. Laser surgery after cataract surgery Cardiovascular Surgical History: Reports: None Respiratory Surgical History: Reports: None GI Surgical History: Reports: Appendectomy, Cholecystectomy, Colonoscopy Other GI Surgeries/Procedures: Had pre-cancerous polyps removed. Female Surgical History: Reports: Hysterectomy, Salpingo-Oophorectomy Endocrine Surgical History: Reports: None Neurological Surgical History: Reports: None Musculoskeletal Surgical History: Reports: None Other Musculoskeletal Surgeries/Procedures:: Having lower back problems, stenosis. Has received physical therapy. Dermatological Surgical History: Reports: None Social & Family History - Family History Family Medical History: No Pertinent Family History - Tobacco Use Tobacco Use Status *Q: Never Tobacco User Second Hand Smoke Exposure: No - Caffeine Use Caffeine Use: Reports: Coffee Other Caffeine Use: decaf - Recreational Drug Use Recreational Drug Use: No H&P Review of Systems - Review of Systems: Review Of Systems: Comprehensive ROS is negative, except as noted in HPI. Exam - Exam Exam: See Below - Vital Signs Vital Signs: Last Vital Signs Temp 97.8 F 09/21/20 00:00 Pulse 88 09/21/20 00:00 Resp 16 09/21/20 00:00 BP 142/65 H 09/21/20 00:00 Pulse Ox 100 09/21/20 00:00 Weight: 78.925 kg - Exam General: Alert, Oriented, 4 HEENT: PERRLA, Hearing Intact, Mucosa Moist & [place], Nares Patent, Normal Nasal Septum, Posterior Pharynx Clear, Conjunctiva Clear, EOMI, EACs Clear, TMs Clear Neck: Supple, Trachea Midline, 2 Lungs: Clear to Auscultation, Normal Respiratory Effort Cardiovascular: Regular Rate, Regular Rhythm GI/Abdominal Exam: Normal Bowel Sounds, Soft, Non-Tender, No Organomegaly, No Distention, No Abnormal Bruit, No Mass, Pelvis Stable (Female) Exam: Deferred Rectal (Female) Exam: Deferred Back Exam: Normal Inspection, Full Range of Motion, NT Extremities: Normal Inspection, Normal Range of Motion, Non-Tender, No Pedal Edema, Normal Capillary Refill Skin: Warm, Dry, Intact Neurological: Cranial Nerves Intact, Reflexes Equal Bilateral Neuro Extensive - Mental Status: Alert, Oriented x3, Normal Mood/Affect, Normal Cognition Neuro Extensive - Motor, Sensory, Reflexes: CN II-XII Intact, Normal Gait, Normal Reflexes Psychiatric: Alert, Normal Affect, Normal Mood - Patient Data Lab Results Last 24 hrs: Laboratory Results - last 24 hr 09/20/20 09/20/20 09/20/20 Range/Units 10:20 10:40 10:40 WBC 7.4 (3.0-10.3) x10-3/uL RBC 4.10 (3.60-5.20) x10(6)uL Hgb 12.0 (11.4-15.5) g/dL Hct 36.0 (34.2-48.2) % MCV 87.9 (76.7-100.5) fL MCH 29.2 (23.9-33.9) pg MCHC 33.3 (31.9-34.8) g/dL RDW 13.4 (12.3-16.5) % Plt Count 214 (151-488) x10(3)uL MPV 8.9 (7.1-12.4) fL Neut % (Auto) 72.4 (30.8-76.2) % Lymph % (Auto) 19.7 (18.4-52.1) % Rich % (Auto) 5.1 (4.4-15.7) % Eos % (Auto) 2.2 (0.6-8.1) % Baso % (Auto) 0.6 (0.2-1.5) % Neut # (Auto) 5.4 (1.5-6.3) x10-3/uL Lymph # (Auto) 1.5 (1.0-4.4) x10-3/uL Rich # (Auto) 0.4 (0.3-1.0) x10-3/uL Eos # (Auto) 0.2 (0.0-0.8) x10-3/uL Baso # (Auto) 0.0 (0.0-0.1) x10-3/uL Sodium 132 L (135-145) mmol/L Potassium 3.8 (3.5-5.3) mmol/L Chloride 95 L D (100-110) mmol/L Carbon Dioxide 26 (21-32) mmol/L BUN 19 H (7-18) mg/dL Creatinine 1.1 H (0.55-1.02) mg/dL Est Cr Clr Drug Dosing 32.87 mL/min Estimated GFR (MDRD) 47 L (>60) BUN/Creatinine Ratio 17.3 (9-20) Glucose 176 H (80-116) mg/dL POC Glucose (74-100) mg/dL Lactic Acid (0.4-2.0) mmol/L Calcium 8.7 (8.6-10.2) mg/dL Total Bilirubin 0.5 (0.1-1.3) mg/dL AST 20 D (5-25) IU/L ALT 24 D (12-36) U/L Alkaline Phosphatase 74 (56-112) IU/L Total Protein 7.5 (6.0-8.0) g/dL Albumin 3.8 (3.2-4.6) g/dL Globulin 3.7 g/dL Albumin/Globulin Ratio 1.0 Urine Color Yellow (YELLOW) Urine Appearance Clear (CLEAR) Urine pH 6.0 (5.0-6.5) Ur Specific [place] 1.005 L (1.010-1.025) Urine Protein Negative (NEGATIVE) mg/dL Urine Glucose (UA) Normal (NORMAL) mg/dL Urine Ketones Negative (NEGATIVE) mg/dL Urine Occult Blood Negative (NEGATIVE) Urine Nitrite Negative (NEGATIVE) Urine Bilirubin Negative (NEGATIVE) Urine Urobilinogen Normal (NEGATIVE) mg/dL Ur Leukocyte Esterase Negative (NEGATIVE) Urine WBC 0-5 (0-5) Ur Squamous Epith Cells Few H (NS,R,O) Urine Bacteria Few H (NS) SARS-CoV-2 RNA (NIXON) (NEGATIVE) 09/20/20 09/20/20 09/20/20 Range/Units 10:40 13:30 16:41 WBC (3.0-10.3) x10-3/uL RBC (3.60-5.20) x10(6)uL Hgb (11.4-15.5) g/dL Hct (34.2-48.2) % MCV (76.7-100.5) fL MCH (23.9-33.9) pg MCHC (31.9-34.8) g/dL RDW (12.3-16.5) % Plt Count (151-488) x10(3)uL MPV (7.1-12.4) fL Neut % (Auto) (30.8-76.2) % Lymph % (Auto) (18.4-52.1) % Rich % (Auto) (4.4-15.7) % Eos % (Auto) (0.6-8.1) % Baso % (Auto) (0.2-1.5) % Neut # (Auto) (1.5-6.3) x10-3/uL Lymph # (Auto) (1.0-4.4) x10-3/uL Rich # (Auto) (0.3-1.0) x10-3/uL Eos # (Auto) (0.0-0.8) x10-3/uL Baso # (Auto) (0.0-0.1) x10-3/uL Sodium (135-145) mmol/L Potassium (3.5-5.3) mmol/L Chloride (100-110) mmol/L Carbon Dioxide (21-32) mmol/L BUN (7-18) mg/dL Creatinine (0.55-1.02) mg/dL Est Cr Clr Drug Dosing mL/min Estimated GFR (MDRD) (>60) BUN/Creatinine Ratio (9-20) Glucose (80-116) mg/dL POC Glucose (74-100) mg/dL Lactic Acid 2.2 H* 2.9 H* (0.4-2.0) mmol/L Calcium (8.6-10.2) mg/dL Total Bilirubin (0.1-1.3) mg/dL AST (5-25) IU/L ALT (12-36) U/L Alkaline Phosphatase (56-112) IU/L Total Protein (6.0-8.0) g/dL Albumin (3.2-4.6) g/dL Globulin g/dL Albumin/Globulin Ratio Urine Color (YELLOW) Urine Appearance (CLEAR) Urine pH (5.0-6.5) Ur Specific [place] (1.010-1.025) Urine Protein (NEGATIVE) mg/dL Urine Glucose (UA) (NORMAL) mg/dL Urine Ketones (NEGATIVE) mg/dL Urine Occult Blood (NEGATIVE) Urine Nitrite (NEGATIVE) Urine Bilirubin (NEGATIVE) Urine Urobilinogen (NEGATIVE) mg/dL Ur Leukocyte Esterase (NEGATIVE) Urine WBC (0-5) Ur Squamous Epith Cells (NS,R,O) Urine Bacteria (NS) SARS-CoV-2 RNA (NIXON) Negative (NEGATIVE) 09/20/20 09/20/20 09/21/20 Range/Units 17:54 23:56 05:57 WBC (3.0-10.3) x10-3/uL RBC (3.60-5.20) x10(6)uL Hgb (11.4-15.5) g/dL Hct (34.2-48.2) % MCV (76.7-100.5) fL MCH (23.9-33.9) pg MCHC (31.9-34.8) g/dL RDW (12.3-16.5) % Plt Count (151-488) x10(3)uL MPV (7.1-12.4) fL Neut % (Auto) (30.8-76.2) % Lymph % (Auto) (18.4-52.1) % Rich % (Auto) (4.4-15.7) % Eos % (Auto) (0.6-8.1) % Baso % (Auto) (0.2-1.5) % Neut # (Auto) (1.5-6.3) x10-3/uL Lymph # (Auto) (1.0-4.4) x10-3/uL Rich # (Auto) (0.3-1.0) x10-3/uL Eos # (Auto) (0.0-0.8) x10-3/uL Baso # (Auto) (0.0-0.1) x10-3/uL Sodium (135-145) mmol/L Potassium (3.5-5.3) mmol/L Chloride (100-110) mmol/L Carbon Dioxide (21-32) mmol/L BUN (7-18) mg/dL Creatinine (0.55-1.02) mg/dL Est Cr Clr Drug Dosing mL/min Estimated GFR (MDRD) (>60) BUN/Creatinine Ratio (9-20) Glucose (80-116) mg/dL POC Glucose 143 H 146 H 103 H (74-100) mg/dL Lactic Acid (0.4-2.0) mmol/L Calcium (8.6-10.2) mg/dL Total Bilirubin (0.1-1.3) mg/dL AST (5-25) IU/L ALT (12-36) U/L Alkaline Phosphatase (56-112) IU/L Total Protein (6.0-8.0) g/dL Albumin (3.2-4.6) g/dL Globulin g/dL Albumin/Globulin Ratio Urine Color (YELLOW) Urine Appearance (CLEAR) Urine pH (5.0-6.5) Ur Specific [place] (1.010-1.025) Urine Protein (NEGATIVE) mg/dL Urine Glucose (UA) (NORMAL) mg/dL Urine Ketones (NEGATIVE) mg/dL Urine Occult Blood (NEGATIVE) Urine Nitrite (NEGATIVE) Urine Bilirubin (NEGATIVE) Urine Urobilinogen (NEGATIVE) mg/dL Ur Leukocyte Esterase (NEGATIVE) Urine WBC (0-5) Ur Squamous Epith Cells (NS,R,O) Urine Bacteria (NS) SARS-CoV-2 RNA (NIXON) (NEGATIVE) 09/21/20 09/21/20 09/21/20 Range/Units 07:05 07:05 07:05 WBC 8.7 (3.0-10.3) x10-3/uL RBC 3.66 (3.60-5.20) x10(6)uL Hgb 10.9 L (11.4-15.5) g/dL Hct 32.5 L (34.2-48.2) % MCV 88.7 (76.7-100.5) fL MCH 29.6 (23.9-33.9) pg MCHC 33.4 (31.9-34.8) g/dL RDW 13.1 (12.3-16.5) % Plt Count 200 (151-488) x10(3)uL MPV 8.3 (7.1-12.4) fL Neut % (Auto) 61.7 (30.8-76.2) % Lymph % (Auto) 28.8 (18.4-52.1) % Rich % (Auto) 6.1 (4.4-15.7) % Eos % (Auto) 2.5 (0.6-8.1) % Baso % (Auto) 0.9 (0.2-1.5) % Neut # (Auto) 5.3 (1.5-6.3) x10-3/uL Lymph # (Auto) 2.5 (1.0-4.4) x10-3/uL Rich # (Auto) 0.5 (0.3-1.0) x10-3/uL Eos # (Auto) 0.2 (0.0-0.8) x10-3/uL Baso # (Auto) 0.1 (0.0-0.1) x10-3/uL Sodium 135 (135-145) mmol/L Potassium 3.6 (3.5-5.3) mmol/L Chloride 99 L (100-110) mmol/L Carbon Dioxide 25 (21-32) mmol/L BUN 17 (7-18) mg/dL Creatinine 1.0 (0.55-1.02) mg/dL Est Cr Clr Drug Dosing 36.16 mL/min Estimated GFR (MDRD) 53 L (>60) BUN/Creatinine Ratio 17.0 (9-20) Glucose 156 H (80-116) mg/dL POC Glucose (74-100) mg/dL Lactic Acid 2.2 H* (0.4-2.0) mmol/L Calcium 8.4 L (8.6-10.2) mg/dL Total Bilirubin (0.1-1.3) mg/dL AST (5-25) IU/L ALT (12-36) U/L Alkaline Phosphatase (56-112) IU/L Total Protein (6.0-8.0) g/dL Albumin (3.2-4.6) g/dL Globulin g/dL Albumin/Globulin Ratio Urine Color (YELLOW) Urine Appearance (CLEAR) Urine pH (5.0-6.5) Ur Specific [place] (1.010-1.025) Urine Protein (NEGATIVE) mg/dL Urine Glucose (UA) (NORMAL) mg/dL Urine Ketones (NEGATIVE) mg/dL Urine Occult Blood (NEGATIVE) Urine Nitrite (NEGATIVE) Urine Bilirubin (NEGATIVE) Urine Urobilinogen (NEGATIVE) mg/dL Ur Leukocyte Esterase (NEGATIVE) Urine WBC (0-5) Ur Squamous Epith Cells (NS,R,O) Urine Bacteria (NS) SARS-CoV-2 RNA (NIXON) (NEGATIVE) Result Diagrams: 09/21/20 07:05 09/21/20 07:05 Sepsis Event Note - Evaluation Sepsis Screening Result: No Definite Risk - Focused Exam Vital Signs: Vital Signs Temp Pulse Pulse Resp BP BP Pulse Ox 09/21/20 00:00 97.8 F 88 16 142/65 H 100 09/20/20 21:57 88 150/88 H - Problem List (1) Feeling poorly SNOMED Code(s): 23553479 ICD Code: R68.89 - OTHER GENERAL SYMPTOMS AND SIGNS Status: Acute Current Visit: Yes (2) Tooth abscess SNOMED Code(s): 805424703 ICD Code: K04.7 - PERIAPICAL ABSCESS WITHOUT SINUS Status: Acute Current Visit: Yes (3) Elevated lactic acid level SNOMED Code(s): 5680674 ICD Code: R79.89 - OTHER SPECIFIED ABNORMAL FINDINGS OF BLOOD CHEMISTRY Status: Acute Current Visit: Yes (4) Diabetes type 2, controlled SNOMED Code(s): 41348803, 009162376 ICD Code: E11.9 - TYPE 2 DIABETES MELLITUS WITHOUT COMPLICATIONS Status: Acute Current Visit: No Qualifiers: Diabetes mellitus complication status: without complication Problem List Initiated/Reviewed/Updated: Yes Orders Last 24hrs: Active Orders 24 hr Category Date Time Status Admission Status [Patient Status] [ADT] Routine ADT 09/20/20 14:15 Active Accu Check [Blood Glucose Check, Bedside] [RC] BIDAC Care 09/20/20 18:00 Active Ambulate [RC] PER UNIT ROUTINE Care 09/20/20 18:34 Active Ambulate [RC] PER UNIT ROUTINE Care 09/20/20 18:34 Active Antiembolic Devices [RC] .Routine Care 09/20/20 18:35 Active Height and Weight [RC] DAILY Care 09/20/20 18:34 Active Intake and Output [RC] 06,14,22 Care 09/20/20 18:35 Active Pulse Oximetry [RC] PRN Care 09/20/20 18:34 Active VTE/DVT Education [RC] Click to Edit Care 09/20/20 18:35 Active Vital Signs [RC] QSHIFT Care 09/20/20 18:34 Active Consistent Carbohydrate Diet [DIET] Diet 09/21/20 Breakfast Active CXR [Chest 2V] [CR] Stat Exams 09/20/20 10:38 Taken CULTURE BLOOD [BC] Urgent Lab 09/20/20 10:40 Received CULTURE BLOOD [BC] Urgent Lab 09/20/20 10:40 Received CULTURE URINE [RM] Stat Lab 09/20/20 10:20 Received Mirtazapine [Remeron] Med 09/20/20 22:15 Active 7.5 mg PO BEDTIME Sodium Chloride 0.9% [Normal Saline] 1,000 ml Med 09/20/20 14:45 Active IV ASDIRECTED Sodium Chloride 0.9% [Saline Flush] Med 09/20/20 10:32 Active 10 ml FLUSH ASDIRECTED PRN carvediloL [Coreg] Med 09/20/20 21:15 Active 6.25 mg PO BID cefTRIAXone [Rocephin] Med 09/21/20 12:00 Active 1 gm IVPUSH Q24H metFORMIN [Glucophage] Med 09/20/20 22:15 Active 750 mg PO BIDMEALS Blood Culture x2 Reflex Set [OM.PC] Urgent Oth 09/20/20 10:32 Ordered DVT/VTE Prophylaxis Reflex [OM.PC] Per Unit Routine Oth 09/20/20 18:34 Ordered Saline Lock Insert [OM.PC] Routine Oth 09/20/20 10:32 Ordered Code Status [Resuscitation Status] Routine Resus Stat 09/20/20 14:30 Ordered Medication Orders Carvedilol (Coreg) 6.25 mg PO BID [facility] Last Admin: 09/20/20 21:57 Dose: 6.25 mg Documented by: LORENA Ceftriaxone Sodium (Rocephin) 1 gm IVPUSH Q24H [facility] Sodium Chloride (Normal Saline) 1,000 mls @ 100 mls/hr IV ASDIRECTED [facility] Last Admin: 09/21/20 02:25 Dose: 100 mls/hr Documented by: Infusion: 09/21/20 02:25 Dose: 100 mls/hr Documented by: Admin: 09/20/20 16:45 Dose: 100 mls/hr Documented by: BENJAMIN Metformin HCl (Glucophage) 750 mg PO BIDMEALS [facility] Last Admin: 09/20/20 22:26 Dose: 750 mg Documented by: LORENA Mirtazapine (Remeron) 7.5 mg PO BEDTIME [facility] Last Admin: 09/20/20 23:58 Dose: 7.5 mg Documented by: LORENA Sodium Chloride (Saline Flush) 10 ml FLUSH ASDIRECTED PRN PRN Reason: Keep Vein Open Last Admin: 09/20/20 11:05 Dose: 10 ml Documented by: ZAYRA Assessment/Plan Comment:: I reviewed CXR, labs,and all are acceptable. Lactic acid has returned to 2.2. Feels better. Will DC home on Cephalexin for tooth abscess. has an appointment with Dentist next week.
[2020-09-21] MEDS: metFORMIN 500 MG Tab**OWN MED PO SCH (09:09)
[2020-09-21] MEDS: Carvedilol 6.25 MG Tab**OWN MED PO SCH (09:11)
[2020-09-21 09:13] VITALS: BP 170/91; PULSE 99
[2020-09-21] MEDS ORDERED: HCTZ PO SCH (09:30)
[2020-09-21] MEDS ORDERED: FOSINOPRIL 20 MG PO SCH (09:30)
[2020-09-21] MEDS ORDERED: Potassium Chloride 10 MEQ Tab.ER *PTOM PO SCH (09:30)
[2020-09-21] MEDS ORDERED: TRIAMTERENE PO SCH (09:30)
--- NOTE | 2020-09-21 11:10 | CR ---
INDICATION: Cough. CHEST, TWO VIEWS: PA and lateral views of the chest were obtained 09/20/2020 and compared with 12/19/2019. The heart remains normal in size and shape. The aorta is moderately tortuous with calcification in the arch and descending portion. A moderate dextroconcave scoliosis of the lower middle thoracic spine is noted with moderate hypertrophic degenerative changes laterally off vertebral bodies in that area. Disc disease is also suggested at at least one level in the lower middle thoracic spine. Flattened diaphragm leads, prominent AP diameter with mild hyperaeration suggests COPD. Pulmonary markings are unchanged from the previous examination with no definite active infiltrate or effusion. However, there is slightly increased markings at the left lung base seen previously and unchanged, likely representing fibrosis, but making it difficult to entirely exclude minimal patchy bronchopneumonia and/or subsegmental atelectasis. IMPRESSION: 1. Somewhat heavy markings at the left lung base are essentially unchanged from the previous study, most likely fibrotic in nature, but make it difficult to exclude minimal patchy bronchopneumonia and possibly atelectasis in that area. 2. Probable COPD-correlate clinically. 3. ASD aorta. 4. DJD and scoliosis. MTDD
[2020-09-21] MEDS ORDERED: cefTRIAXone 1 GM Vial IVPUSH SCH (12:00)
[2020-09-21] MEDS ORDERED: metFORMIN 500 MG Tab**OWN MED PO SCH (21:00)
[2020-09-21] MEDS ORDERED: Mirtazapine 15 MG Tab**OWN MED PO SCH (21:00)
== END 2020-09-21 14:30 | disposition home or self-care (01) ==
LOC: FB.ED 10:12 → FB.MS 14:15
PROVIDERS: ADMIT Family Medicine; ATTEND Family Medicine
DX: R68.89 Other general symptoms and signs (principal); N39.0 Urinary tract infection, site not specified; E78.00 Pure hypercholesterolemia, unspecified; I10 Essential (primary) hypertension; E11.9 Type 2 diabetes mellitus without complications; E53.8 Deficiency of other specified B group vitamins; R79.89 Other specified abnormal findings of blood chemistry; K04.7 Periapical abscess without sinus; Z20.822 Contact with and (suspected) exposure to COVID-19; Z88.0 Allergy status to penicillin; Z88.1 Allergy status to other antibiotic agents; Z88.8 Allergy status to other drugs, medicaments and biological substances; Z79.899 Other long term (current) drug therapy; Z79.84 Long term (current) use of oral hypoglycemic drugs
CPT/HCPCS: 36415; 71046; 80048; 80053; 81001; 82962; 83605; 85025; 87040; 87086; 87088; 87186; 96374; 96376; 99283; 99285-25; A9270-GY; J0696; J7030; J7040; U0002

== ENCOUNTER 2021-03-02 23:06 | Emergency (ER) | payer MEDICARE, BC ==
[2021-03-03 01:30] VITALS: BP 181/86; PULSE 94
--- NOTE | 2021-03-03 01:32 | EDM.PDOC ---
ED HPI GENERAL MEDICAL PROBLEM - General Chief Complaint: General Stated Complaint: TOOK WRONG MEDS Time Seen by Provider: 03/02/21 23:10 Source of Information: Reports: Patient, EMS History Limitations: Reports: No Limitations - History of Present Illness INITIAL COMMENTS - FREE TEXT/NARRATIVE: States she fell asleep early and woke up at about 10pm and thought it was morning. She went ahead and took her am pills ( Carvdiol , fosinopril and metformin) . 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) - Related Data Allergies Allergy/AdvReac Type Severity Reaction Status Date / Time erythromycin estolate Allergy Rash Verified 03/02/21 23:13 [From Ilosone] fenoprofen calcium Allergy Rash Verified 03/02/21 23:13 [From Nalfon] ibuprofen [From Motrin] Allergy Rash Verified 03/02/21 23:13 lidocaine Allergy Rash Verified 03/02/21 23:13 lisinopril [From Zestril] Allergy Rash Verified 03/02/21 23:13 Penicillins Allergy Rash Verified 03/02/21 23:13 phenylbutazone Allergy Rash Verified 03/02/21 23:13 [From Butazolidin] tetracycline [Tetracycline] Allergy Rash Verified 03/02/21 23:13 zucapsaicin Allergy Cannot Verified 03/02/21 23:13 Remember .zucchini Allergy Severe Anaphylactic Uncoded 09/20/20 10:28 Shock Home Meds: Home Meds Calcium Carbonate/Vitamin D3 [Calcium 600 + Vit D Tablet] 1 tab PO DAILY 04/25/14 [History] Estrogens, Conjugated [Premarin Vaginal Crm] 1.5 gm VAG TUSA 04/25/14 [History] Mirtazapine [Remeron] 7.5 mg PO BEDTIME 04/25/14 [History] Potassium Chloride [Klor-Con 10] 10 meq PO DAILY 04/25/14 [History] Triamterene/Hydrochlorothiazid [Dyazide 37.5-25] 37.5 mg PO DAILY 04/25/14 [History] atorvaSTATin [Lipitor] 20 mg PO BEDTIME 04/25/14 [History] Acetaminophen [Tylenol Extra Strength] 500 mg PO TID PRN 11/21/16 [History] Cetirizine [ZyrTEC] 10 mg PO DAILY PRN 11/21/16 [History] Fosinopril [Monopril] 30 mg PO DAILY #135 12/26/16 [Rx] carvediloL [Coreg] 6.25 mg PO BID #0 tablet 12/26/16 [Rx] metFORMIN [Glucophage XR] 750 mg PO BID 03/02/21 [History] Past Medical History HEENT History: Reports: Impaired Vision Other HEENT History: wears glasses Cardiovascular History: Reports: High Cholesterol, Hypertension Respiratory History: Reports: None Gastrointestinal History: Reports: Colon Polyp Genitourinary History: Reports: None, UTI, Recurrent 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 fx lower back did PT no surgery, back is good now Neurological History: Reports: Vertigo Other Neuro History: numbness rt foot Psychiatric History: Reports: Anxiety, Depression Endocrine/Metabolic History: Reports: Diabetes, Type II Hematologic History: Reports: B12 Deficiency - Infectious Disease History Infectious Disease History: Reports: Chicken Pox, Measles, Mumps, Shingles - Past Surgical History HEENT Surgical History: Reports: Cataract Surgery, Laser Surgery Other HEENT Surgeries/Procedures: bilat cataract, bilat laser surgery bilat eyes. Laser surgery after cataract surgery Cardiovascular Surgical History: Reports: None Respiratory Surgical History: Reports: None GI Surgical History: Reports: Appendectomy, Cholecystectomy, Colonoscopy Other GI Surgeries/Procedures: Had pre-cancerous polyps removed. Female Surgical History: Reports: Hysterectomy, Salpingo-Oophorectomy Endocrine Surgical History: Reports: None Neurological Surgical History: Reports: None Musculoskeletal Surgical History: Reports: None Other Musculoskeletal Surgeries/Procedures:: Having lower back problems, stenosis. Has received physical therapy. Dermatological Surgical History: Reports: None Social & Family History - Family History Family Medical History: No Pertinent Family History - Caffeine Use Caffeine Use: Reports: Coffee Other Caffeine Use: decaf ED ROS GENERAL - Review of Systems Review Of Systems: Comprehensive ROS is negative, except as noted in HPI. ED EXAM, GENERAL - Physical Exam Exam: See Below Exam Limited By: No Limitations General Appearance: Alert, WD/WN, No Apparent Distress Ears: Normal External Exam Nose: Normal Inspection Throat/Mouth: Normal Inspection, Normal Oropharynx Head: Atraumatic, Normocephalic Neck: Supple, Non-Tender, Full Range of Motion Respiratory/Chest: No Respiratory Distress, Lungs Clear Cardiovascular: Regular Rate, Rhythm GI/Abdominal: Soft, Non-Tender Back Exam: Normal Inspection, Full Range of Motion Extremities: No Pedal Edema Neurological: Alert, Oriented, CN II-XII Intact, Normal Cognition Psychiatric: Normal Affect, Normal Mood Skin Exam: Warm, Dry, Intact Course - Vital Signs Last Recorded V/S: Last Vital Signs Temp 36.4 C 03/02/21 23:10 Pulse 94 03/02/21 23:10 Resp 18 03/02/21 23:10 BP 181/86 H 03/02/21 23:10 Pulse Ox 98 03/02/21 23:10 - Orders/Labs/Meds Orders: Active Orders 24 hr Category Date Time Status Accu Check [Blood Glucose Check, Bedside] [RC] ONETIME Care 03/03/21 00:19 Active Labs: Laboratory Tests 03/02/21 03/03/21 03/03/21 Range/Units 23:50 00:46 00:55 WBC 14.5 H (3.0-10.3) x10-3/uL RBC 3.89 (3.60-5.20) x10(6)uL Hgb 12.1 (11.4-15.5) g/dL Hct 34.8 (34.2-48.2) % MCV 89.4 (76.7-100.5) fL MCH 31.0 (23.9-33.9) pg MCHC 34.7 (31.9-34.8) g/dL RDW 13.1 (12.3-16.5) % Plt Count 199 (151-488) x10(3)uL MPV 8.4 (7.1-12.4) fL Neut % (Auto) 74.5 (30.8-76.2) % Lymph % (Auto) 18.0 L (18.4-52.1) % [place] % (Auto) 4.7 (4.4-15.7) % Eos % (Auto) 2.2 (0.6-8.1) % Baso % (Auto) 0.6 (0.2-1.5) % Neut # (Auto) 10.8 H (1.5-6.3) x10-3/uL Lymph # (Auto) 2.6 (1.0-4.4) x10-3/uL York # (Auto) 0.7 (0.3-1.0) x10-3/uL Eos # (Auto) 0.3 (0.0-0.8) x10-3/uL Baso # (Auto) 0.1 (0.0-0.1) x10-3/uL Sodium (135-145) mmol/L Potassium (3.5-5.3) mmol/L Chloride (100-110) mmol/L Carbon Dioxide (21-32) mmol/L BUN (7-18) mg/dL Creatinine (0.55-1.02) mg/dL Est Cr Clr Drug Dosing mL/min Estimated GFR (MDRD) (>60) BUN/Creatinine Ratio (9-20) Glucose (80-116) mg/dL POC Glucose 132 H (80-116) mg/dL Calcium (8.6-10.2) mg/dL Urine Color Yellow (YELLOW) Urine Appearance Clear (CLEAR) Urine pH 7.0 H (5.0-6.5) Ur Specific [place] 1.000 L (1.010-1.025) Urine Protein Negative (NEGATIVE) mg/dL Urine Glucose (UA) Normal (NORMAL) mg/dL Urine Ketones Negative (NEGATIVE) mg/dL Urine Occult Blood Negative (NEGATIVE) Urine Nitrite Negative (NEGATIVE) Urine Bilirubin Negative (NEGATIVE) Urine Urobilinogen Normal (NEGATIVE) mg/dL Ur Leukocyte Esterase Negative (NEGATIVE) Urine RBC 0-5 (0-5) Urine WBC 0-5 (0-5) Ur Squamous Epith Cells Few H (NS,R,O) Urine Bacteria Rare H (NS) 03/03/21 Range/Units 00:55 WBC (3.0-10.3) x10-3/uL RBC (3.60-5.20) x10(6)uL Hgb (11.4-15.5) g/dL Hct (34.2-48.2) % MCV (76.7-100.5) fL MCH (23.9-33.9) pg MCHC (31.9-34.8) g/dL RDW (12.3-16.5) % Plt Count (151-488) x10(3)uL MPV (7.1-12.4) fL Neut % (Auto) (30.8-76.2) % Lymph % (Auto) (18.4-52.1) % York % (Auto) (4.4-15.7) % Eos % (Auto) (0.6-8.1) % Baso % (Auto) (0.2-1.5) % Neut # (Auto) (1.5-6.3) x10-3/uL Lymph # (Auto) (1.0-4.4) x10-3/uL York # (Auto) (0.3-1.0) x10-3/uL Eos # (Auto) (0.0-0.8) x10-3/uL Baso # (Auto) (0.0-0.1) x10-3/uL Sodium 134 L (135-145) mmol/L Potassium 4.1 (3.5-5.3) mmol/L Chloride 96 L (100-110) mmol/L Carbon Dioxide 25 (21-32) mmol/L BUN 18 (7-18) mg/dL Creatinine 1.2 H (0.55-1.02) mg/dL Est Cr Clr Drug Dosing 30.14 mL/min Estimated GFR (MDRD) 43 L (>60) BUN/Creatinine Ratio 15.0 (9-20) Glucose 130 H (80-116) mg/dL POC Glucose (80-116) mg/dL Calcium 8.8 (8.6-10.2) mg/dL Urine Color (YELLOW) Urine Appearance (CLEAR) Urine pH (5.0-6.5) Ur Specific [place] (1.010-1.025) Urine Protein (NEGATIVE) mg/dL Urine Glucose (UA) (NORMAL) mg/dL Urine Ketones (NEGATIVE) mg/dL Urine Occult Blood (NEGATIVE) Urine Nitrite (NEGATIVE) Urine Bilirubin (NEGATIVE) Urine Urobilinogen (NEGATIVE) mg/dL Ur Leukocyte Esterase (NEGATIVE) Urine RBC (0-5) Urine WBC (0-5) Ur Squamous Epith Cells (NS,R,O) Urine Bacteria (NS) - Re-Assessments/Exams Free Text/Narrative Re-Assessment/Exam: 03/03/21 01:38 pt had accucheck done labs drawn BP monitored Pt BP remained above 160 throughout her stay . blood sugar 130-132. Pt developed no symptoms Departure - Departure Time of Disposition: 00:19 Disposition: Home, Self-Care 01 Condition: Good Clinical Impression: Medication administered in error, HTN, Benign hypertension Diabetes type 2, controlled Qualifiers: Diabetes mellitus complication status: without complication - Discharge Information *PRESCRIPTION DRUG MONITORING PROGRAM REVIEWED*: Not Applicable *COPY OF PRESCRIPTION DRUG MONITORING REPORT IN PATIENT KEVIN: Not Applicable Referrals: Familia Ogden MD [Primary Care Provider] - Forms: ED Department Discharge Sepsis Event Note (ED) - Focused Exam Vital Signs: Vital Signs Temp Pulse Resp BP Pulse Ox 03/02/21 23:10 36.4 C 94 18 181/86 H 98 - My Orders Last 24 Hours: My Active Orders 03/03/21 00:19 Accu Check [Blood Glucose Check, Bedside] [RC] ONETIME - Assessment/Plan Last 24 Hours: My Active Orders 03/03/21 00:19 Accu Check [Blood Glucose Check, Bedside] [RC] ONETIME
== END 2021-03-03 02:15 | disposition home or self-care (01) ==
LOC: FB.ED 23:06
DX: E11.9 Type 2 diabetes mellitus without complications (principal); I10 Essential (primary) hypertension; E78.00 Pure hypercholesterolemia, unspecified; Z88.0 Allergy status to penicillin; Z88.8 Allergy status to other drugs, medicaments and biological substances; Z79.899 Other long term (current) drug therapy; Z79.84 Long term (current) use of oral hypoglycemic drugs
CPT/HCPCS: 36415; 80048; 81001; 82947; 85025; 99284

== ENCOUNTER 2021-06-30 17:46 | Emergency (ER) | payer MEDICARE, BC ==
[2021-06-30] MEDS ORDERED: amLODIPine 10 MG Tab PO STA (18:12)
[2021-06-30] MEDS ORDERED: cloNIDine 0.1 MG Tab PO STA (18:18)
--- NOTE | 2021-06-30 18:21 | EDM.PDOC ---
ED HPI GENERAL MEDICAL PROBLEM - General Stated Complaint: HB PRESSURE Time Seen by Provider: 06/30/21 17:55 Source of Information: Reports: Patient History Limitations: Reports: No Limitations - History of Present Illness INITIAL COMMENTS - FREE TEXT/NARRATIVE: Patient presented to the ED because of an elevated BP,otherwise asymptomatic. She called her clinic and called EMS instead. She denies having any headache, nausea,dyspnea. She is taking carvedilol, monopril and dyazide for her HTN. - Related Data Allergies Allergy/AdvReac Type Severity Reaction Status Date / Time erythromycin estolate Allergy Rash Verified 03/02/21 23:13 [From Ilosone] fenoprofen calcium Allergy Rash Verified 03/02/21 23:13 [From Nalfon] ibuprofen [From Motrin] Allergy Rash Verified 03/02/21 23:13 lidocaine Allergy Rash Verified 03/02/21 23:13 lisinopril [From Zestril] Allergy Rash Verified 03/02/21 23:13 Penicillins Allergy Rash Verified 03/02/21 23:13 phenylbutazone Allergy Rash Verified 03/02/21 23:13 [From Butazolidin] tetracycline [Tetracycline] Allergy Rash Verified 03/02/21 23:13 zucapsaicin Allergy Cannot Verified 03/02/21 23:13 Remember .marieucchini Allergy Severe Anaphylactic Uncoded 09/20/20 10:28 Shock Home Meds: Home Meds Calcium Carbonate/Vitamin D3 [Calcium 600 + Vit D Tablet] 1 tab PO DAILY 04/25/14 [History] Estrogens, Conjugated [Premarin Vaginal Crm] 1.5 gm VAG TUSA 04/25/14 [History] Mirtazapine [Remeron] 7.5 mg PO BEDTIME 04/25/14 [History] Potassium Chloride [Klor-Con 10] 10 meq PO DAILY 04/25/14 [History] Triamterene/Hydrochlorothiazid [Dyazide 37.5-25] 37.5 mg PO DAILY 04/25/14 [History] atorvaSTATin [Lipitor] 20 mg PO BEDTIME 04/25/14 [History] Acetaminophen [Tylenol Extra Strength] 500 mg PO TID PRN 11/21/16 [History] Cetirizine [ZyrTEC] 10 mg PO DAILY PRN 11/21/16 [History] Fosinopril [Monopril] 30 mg PO DAILY #135 12/26/16 [Rx] carvediloL [Coreg] 6.25 mg PO BID #0 tablet 12/26/16 [Rx] metFORMIN [Glucophage XR] 750 mg PO BID 03/02/21 [History] Past Medical History HEENT History: Reports: Impaired Vision Other HEENT History: wears glasses Cardiovascular History: Reports: High Cholesterol, Hypertension Respiratory History: Reports: None Gastrointestinal History: Reports: Colon Polyp Genitourinary History: Reports: None, UTI, Recurrent 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 fx lower back did PT no surgery, back is good now Neurological History: Reports: Vertigo Other Neuro History: numbness rt foot Psychiatric History: Reports: Anxiety, Depression Endocrine/Metabolic History: Reports: Diabetes, Type II Hematologic History: Reports: B12 Deficiency - Infectious Disease History Infectious Disease History: Reports: Chicken Pox, Measles, Mumps, Shingles - Past Surgical History HEENT Surgical History: Reports: Cataract Surgery, Laser Surgery Other HEENT Surgeries/Procedures: bilat cataract, bilat laser surgery bilat eyes. Laser surgery after cataract surgery Cardiovascular Surgical History: Reports: None Respiratory Surgical History: Reports: None GI Surgical History: Reports: Appendectomy, Cholecystectomy, Colonoscopy Other GI Surgeries/Procedures: Had pre-cancerous polyps removed. Female Surgical History: Reports: Hysterectomy, Salpingo-Oophorectomy Endocrine Surgical History: Reports: None Neurological Surgical History: Reports: None Musculoskeletal Surgical History: Reports: None Other Musculoskeletal Surgeries/Procedures:: Having lower back problems, stenosis. Has received physical therapy. Dermatological Surgical History: Reports: None Social & Family History - Family History Family Medical History: No Pertinent Family History - Caffeine Use Caffeine Use: Reports: None Other Caffeine Use: decaf ED ROS GENERAL - Review of Systems Review Of Systems: See Below Constitutional: Reports: No Symptoms HEENT: Reports: No Symptoms Respiratory: Reports: No Symptoms Cardiovascular: Reports: No Symptoms Endocrine: Reports: No Symptoms GI/Abdominal: Reports: No Symptoms : Reports: No Symptoms Musculoskeletal: Reports: No Symptoms Skin: Reports: No Symptoms Neurological: Reports: No Symptoms Psychiatric: Reports: No Symptoms Hematologic/Lymphatic: Reports: No Symptoms ED EXAM, GENERAL - Physical Exam Exam: See Below Exam Limited By: No Limitations General Appearance: Alert, No Apparent Distress Eye Exam: Bilateral Eye: PERRL Ears: Normal External Exam, Normal Canal, Normal TMs Nose: Normal Inspection, Normal Mucosa, No Blood Throat/Mouth: Normal Inspection, Normal Lips, Normal Teeth, Normal Oropharynx, Normal Voice Head: Atraumatic, Normocephalic Neck: Normal Inspection, Supple, Non-Tender, Full Range of Motion Respiratory/Chest: No Respiratory Distress, Lungs Clear, Normal Breath Sounds, No Accessory Muscle Use, Chest Non-Tender Cardiovascular: Normal Peripheral Pulses, Regular Rate, Rhythm, No Edema, No Gallop, No JVD, No Murmur, No Rub GI/Abdominal: Normal Bowel Sounds, Soft, Non-Tender, No Organomegaly, No Distention, No Abnormal Bruit Back Exam: Normal Inspection, Full Range of Motion Extremities: Normal Inspection, Normal Range of Motion, No Pedal Edema, Normal Capillary Refill Neurological: Alert, Oriented, CN II-XII Intact, Normal Cognition, Normal Reflexes Psychiatric: Normal Affect Course - Vital Signs Text/Narrative:: Norvasc 10 mg PO x1 Clonidine 0.2 mg PO x1 Last Recorded V/S: Last Vital Signs Temp 36.7 C 06/30/21 17:46 Pulse 106 H 06/30/21 17:46 Resp 20 06/30/21 17:46 BP 182/112 H 06/30/21 18:22 Pulse Ox 98 06/30/21 17:46 - Orders/Labs/Meds Meds: Medications Discontinued Medications Generic Name Dose Route Start Last Admin Trade Name Marisol PRN Reason Stop Dose Admin Amlodipine Besylate 10 mg 06/30/21 18:12 06/30/21 18:22 Amlodipine 10 Mg Tab PO 06/30/21 18:13 10 mg NOW STA Administration Clonidine HCl 0.2 mg 06/30/21 18:18 06/30/21 18:22 Clonidine 0.1 Mg Tab PO 06/30/21 18:19 0.2 mg NOW STA Administration Departure - Departure Time of Disposition: 18:20 Disposition: Home, Self-Care 01 Condition: Good Clinical Impression: Hypertension - Discharge Information Instructions: Hypertension, Adult, [id number] Referrals: Familia Ogden MD [Primary Care Provider] - Forms: ED Department Discharge Additional Instructions: Please read discharge instructions on high blood pressure Do not take your carvedilol tonight Follow up as needed
[2021-06-30 18:48] VITALS: BP 126/107; PULSE 106
== END 2021-06-30 18:58 | disposition home or self-care (01) ==
LOC: FB.ED 17:46
DX: I10 Essential (primary) hypertension (principal); E78.00 Pure hypercholesterolemia, unspecified; E11.9 Type 2 diabetes mellitus without complications; Z88.1 Allergy status to other antibiotic agents; Z88.8 Allergy status to other drugs, medicaments and biological substances; Z88.6 Allergy status to analgesic agent; Z88.4 Allergy status to anesthetic agent; Z88.0 Allergy status to penicillin; Z79.84 Long term (current) use of oral hypoglycemic drugs; Z91.018 Allergy to other foods; Z79.899 Other long term (current) drug therapy
CPT/HCPCS: 99283; A9270

== ENCOUNTER 2021-07-04 17:09 | Emergency (ER) | payer MEDICARE, BC ==
--- NOTE | 2021-07-04 17:44 | EDM.PDOC ---
ED HPI GENERAL MEDICAL PROBLEM - General Chief Complaint: Cardiovascular Problem Stated Complaint: HIGH HB PRESSURE Time Seen by Provider: 07/04/21 17:20 Source of Information: Reports: Patient History Limitations: Reports: No Limitations - History of Present Illness INITIAL COMMENTS - FREE TEXT/NARRATIVE: Patient presented to the Ed because of an elevated BP of 190/100. she is otherwise asymptomatic. There is no chest pain, no nausea, vomiting, but c/o dyspnea although her oxygen saturation is normal upon triage. She was seen in the ED several days ago and was told to follow up with her PMD but she didn't. - Related Data Allergies Allergy/AdvReac Type Severity Reaction Status Date / Time erythromycin estolate Allergy Rash Verified 03/02/21 23:13 [From Ilosone] fenoprofen calcium Allergy Rash Verified 03/02/21 23:13 [From Nalfon] ibuprofen [From Motrin] Allergy Rash Verified 03/02/21 23:13 lidocaine Allergy Rash Verified 03/02/21 23:13 lisinopril [From Zestril] Allergy Rash Verified 03/02/21 23:13 Penicillins Allergy Rash Verified 03/02/21 23:13 phenylbutazone Allergy Rash Verified 03/02/21 23:13 [From Butazolidin] tetracycline [Tetracycline] Allergy Rash Verified 03/02/21 23:13 zucapsaicin Allergy Cannot Verified 03/02/21 23:13 Remember .brianchini Allergy Severe Anaphylactic Uncoded 09/20/20 10:28 Shock Home Meds: Home Meds Calcium Carbonate/Vitamin D3 [Calcium 600 + Vit D Tablet] 1 tab PO DAILY 04/25/14 [History] Estrogens, Conjugated [Premarin Vaginal Crm] 1.5 gm VAG TUSA 04/25/14 [History] Mirtazapine [Remeron] 7.5 mg PO BEDTIME 04/25/14 [History] Potassium Chloride [Klor-Con 10] 10 meq PO DAILY 04/25/14 [History] Triamterene/Hydrochlorothiazid [Dyazide 37.5-25] 37.5 mg PO DAILY 04/25/14 [History] atorvaSTATin [Lipitor] 20 mg PO BEDTIME 04/25/14 [History] Acetaminophen [Tylenol Extra Strength] 500 mg PO TID PRN 11/21/16 [History] Cetirizine [ZyrTEC] 10 mg PO DAILY PRN 11/21/16 [History] Fosinopril [Monopril] 30 mg PO DAILY #135 12/26/16 [Rx] carvediloL [Coreg] 6.25 mg PO BID #0 tablet 12/26/16 [Rx] metFORMIN [Glucophage XR] 750 mg PO BID 03/02/21 [History] Past Medical History HEENT History: Reports: Impaired Vision Other HEENT History: wears glasses Cardiovascular History: Reports: High Cholesterol, Hypertension Respiratory History: Reports: None Gastrointestinal History: Reports: Colon Polyp Genitourinary History: Reports: None, UTI, Recurrent [employer] History: Reports: 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 fx lower back did PT no surgery, back is good now Neurological History: Reports: Vertigo Other Neuro History: numbness rt foot Psychiatric History: Reports: Anxiety, Depression Endocrine/Metabolic History: Reports: Diabetes, Type II Hematologic History: Reports: B12 Deficiency - Infectious Disease History Infectious Disease History: Reports: Chicken Pox, Measles, Mumps, Shingles - Past Surgical History HEENT Surgical History: Reports: Cataract Surgery, Laser Surgery Other HEENT Surgeries/Procedures: bilat cataract, bilat laser surgery bilat eyes. Laser surgery after cataract surgery Cardiovascular Surgical History: Reports: None Respiratory Surgical History: Reports: None GI Surgical History: Reports: Appendectomy, Cholecystectomy, Colonoscopy Other GI Surgeries/Procedures: Had pre-cancerous polyps removed. Female Surgical History: Reports: Hysterectomy, Salpingo-Oophorectomy Endocrine Surgical History: Reports: None Neurological Surgical History: Reports: None Musculoskeletal Surgical History: Reports: None Other Musculoskeletal Surgeries/Procedures:: Having lower back problems, stenosis. Has received physical therapy. Dermatological Surgical History: Reports: None Social & Family History - Family History Family Medical History: No Pertinent Family History - Caffeine Use Caffeine Use: Reports: None Other Caffeine Use: decaf ED ROS GENERAL - Review of Systems Review Of Systems: See Below Constitutional: Reports: No Symptoms HEENT: Reports: No Symptoms Respiratory: Reports: No Symptoms Cardiovascular: Reports: No Symptoms Endocrine: Reports: No Symptoms GI/Abdominal: Reports: No Symptoms : Reports: No Symptoms Musculoskeletal: Reports: No Symptoms Skin: Reports: No Symptoms Neurological: Reports: No Symptoms ED EXAM, GENERAL - Physical Exam Exam: See Below Exam Limited By: No Limitations General Appearance: Alert, No Apparent Distress Eye Exam: Bilateral Eye: PERRL Ears: Normal External Exam, Normal Canal, Hearing Grossly Normal Nose: Normal Inspection, Normal Mucosa, No Blood Throat/Mouth: Normal Inspection, Normal Lips, Normal Teeth, Normal Gums, Normal Oropharynx, Normal Voice Head: Atraumatic, Normocephalic Neck: Normal Inspection, Supple, Non-Tender, Full Range of Motion Respiratory/Chest: No Respiratory Distress, Lungs Clear, Normal Breath Sounds, No Accessory Muscle Use, Chest Non-Tender Cardiovascular: Normal Peripheral Pulses, Regular Rate, Rhythm, No Edema, No Gallop, No JVD, No Murmur, No Rub GI/Abdominal: Normal Bowel Sounds, Soft, Non-Tender, No Organomegaly, No Distention, No Abnormal Bruit, No Mass Back Exam: Normal Inspection, Full Range of Motion Extremities: Normal Inspection, Normal Range of Motion, Non-Tender, No Pedal Edema, Normal Capillary Refill Neurological: Alert, Oriented, CN II-XII Intact, Normal Cognition, Normal Gait, Normal Reflexes, No Motor/Sensory Deficits Psychiatric: Normal Affect, Normal Mood Skin Exam: Warm, Intact, Normal Color, No Rash Course - Vital Signs Text/Narrative:: Lab resullt was reviewed and discussed with patient Clonidine 0.2 mg PO x1 Metoprolol tartrate 50 mg PO x1 Her BP did improved upon discharge to 144/72 and still asymptomatic Last Recorded V/S: Last Vital Signs Temp 36.6 C 07/04/21 17:15 Pulse 82 07/04/21 19:00 Resp 20 07/04/21 17:15 BP 144/72 H 07/04/21 19:00 Pulse Ox 99 07/04/21 17:15 - Orders/Labs/Meds Labs: Laboratory Tests 07/04/21 07/04/21 07/04/21 Range/Units 18:15 18:15 18:15 WBC 11.7 H (3.0-10.3) x10-3/uL RBC 4.39 (3.60-5.20) x10(6)uL Hgb 12.8 (11.4-15.5) g/dL Hct 38.3 (34.2-48.2) % MCV 87.1 (76.7-100.5) fL MCH 29.2 (23.9-33.9) pg MCHC 33.6 (31.9-34.8) g/dL RDW 13.0 (12.3-16.5) % Plt Count 275 (151-488) x10(3)uL MPV 6.9 L (7.1-12.4) fL Neut % (Auto) 72.0 (30.8-76.2) % Lymph % (Auto) 20.4 (18.4-52.1) % [place] % (Auto) 5.8 (4.4-15.7) % Eos % (Auto) 1.3 (0.6-8.1) % Baso % (Auto) 0.5 (0.2-1.5) % Neut # (Auto) 8.5 H (1.5-6.3) x10-3/uL Lymph # (Auto) 2.4 (1.0-4.4) x10-3/uL [place] # (Auto) 0.7 (0.3-1.0) x10-3/uL Eos # (Auto) 0.1 (0.0-0.8) x10-3/uL Baso # (Auto) 0.1 (0.0-0.1) x10-3/uL Sodium 129 L (135-145) mmol/L Potassium 3.8 (3.5-5.3) mmol/L Chloride 94 L (100-110) mmol/L Carbon Dioxide 24 (21-32) mmol/L BUN 27 H (7-18) mg/dL Creatinine 1.0 (0.55-1.02) mg/dL Est Cr Clr Drug Dosing TNP Estimated GFR (MDRD) 53 L (>60) BUN/Creatinine Ratio 27.0 H (9-20) Glucose 167 H (80-116) mg/dL Calcium 9.4 (8.6-10.2) mg/dL Total Bilirubin 0.6 (0.1-1.3) mg/dL AST 19 (5-25) IU/L ALT 27 D (12-36) U/L Alkaline Phosphatase 79 (56-112) IU/L Troponin I 7.0 (4.0-60.3) pg/mL Total Protein 7.9 (6.0-8.0) g/dL Albumin 4.1 (3.2-4.6) g/dL Globulin 3.8 g/dL Albumin/Globulin Ratio 1.1 Meds: Medications Discontinued Medications Generic Name Dose Route Start Last Admin Trade Name Marisol PRRicky Reason Stop Dose Admin Clonidine HCl 0.2 mg 07/04/21 17:45 07/04/21 17:55 Clonidine 0.1 Mg Tab PO 07/04/21 17:46 0.2 mg NOW STA Administration Metoprolol Tartrate 50 mg 07/04/21 17:46 07/04/21 17:55 Metoprolol Tartrate 50 Mg Tab PO 07/04/21 17:47 50 mg ONETIME ONE Administration Departure - Departure Time of Disposition: 19:00 Disposition: Home, Self-Care 01 Condition: Good Clinical Impression: Hypertensive crisis Instructions: Hypertension, Adult, [id number] Referrals: Familia Ogden MD [Primary Care Provider] - Forms: ED Department Discharge Additional Instructions: Please read discharge instructions on high blood pressure that is poorly controlled Low salt, low fat diet and exercise Call your clinic tomorrow for a follow up visit with regards to your high blood pressure
[2021-07-04] MEDS ORDERED: cloNIDine 0.1 MG Tab PO STA (17:45)
[2021-07-04] MEDS ORDERED: Metoprolol Tartrate 50 MG Tab PO ONE (17:46)
[2021-07-04 19:59] VITALS: BP 144/72; PULSE 82
== END 2021-07-04 19:15 | disposition home or self-care (01) ==
LOC: FB.ED 17:09
DX: I16.9 Hypertensive crisis, unspecified (principal); E78.00 Pure hypercholesterolemia, unspecified; E11.9 Type 2 diabetes mellitus without complications; Z88.1 Allergy status to other antibiotic agents; Z88.8 Allergy status to other drugs, medicaments and biological substances; Z88.6 Allergy status to analgesic agent; Z88.4 Allergy status to anesthetic agent; Z88.0 Allergy status to penicillin; Z91.018 Allergy to other foods; Z79.84 Long term (current) use of oral hypoglycemic drugs; Z79.899 Other long term (current) drug therapy
CPT/HCPCS: 36415; 80053; 84484; 85025; 99283; A9270

== ENCOUNTER 2021-07-30 14:51 | Emergency (ER) | payer MEDICARE, BC ==
--- NOTE | 2021-07-30 16:08 | EDM.PDOC ---
ED HPI GENERAL MEDICAL PROBLEM - General Stated Complaint: uti Time Seen by Provider: 07/30/21 15:00 Source of Information: Reports: Patient History Limitations: Reports: No Limitations - History of Present Illness INITIAL COMMENTS - FREE TEXT/NARRATIVE: Patient presented to the ED because of dizziness after taking Macrobid for her UTI. There is no nausea, vomiting or abdominal pain. There is no dysuri a,urgency, frequency. - Related Data Allergies Allergy/AdvReac Type Severity Reaction Status Date / Time erythromycin estolate Allergy Rash Verified 07/30/21 16:12 [From Ilosone] fenoprofen calcium Allergy Rash Verified 07/30/21 16:12 [From Nalfon] ibuprofen [From Motrin] Allergy Rash Verified 07/30/21 16:12 lidocaine Allergy Rash Verified 07/30/21 16:12 lisinopril [From Zestril] Allergy Rash Verified 07/30/21 16:12 Penicillins Allergy Rash Verified 07/30/21 16:12 phenylbutazone Allergy Rash Verified 07/30/21 16:12 [From Butazolidin] tetracycline [Tetracycline] Allergy Rash Verified 07/30/21 16:12 zucapsaicin Allergy Cannot Verified 07/30/21 16:12 Remember .zucchini Allergy Severe Anaphylactic Uncoded 07/30/21 16:12 Shock Home Meds: Home Meds Calcium Carbonate/Vitamin D3 [Calcium 600 + Vit D Tablet] 1 tab PO DAILY 04/25/14 [History] Estrogens, Conjugated [Premarin Vaginal Crm] 1.5 gm VAG TUSA 04/25/14 [History] Mirtazapine [Remeron] 7.5 mg PO BEDTIME 04/25/14 [History] Potassium Chloride [Klor-Con 10] 10 meq PO DAILY 04/25/14 [History] Triamterene/Hydrochlorothiazid [Dyazide 37.5-25] 37.5 mg PO DAILY 04/25/14 [History] atorvaSTATin [Lipitor] 20 mg PO BEDTIME 04/25/14 [History] Acetaminophen [Tylenol Extra Strength] 500 mg PO TID PRN 11/21/16 [History] Cetirizine [ZyrTEC] 10 mg PO DAILY PRN 11/21/16 [History] Fosinopril [Monopril] 30 mg PO DAILY #135 12/26/16 [Rx] carvediloL [Coreg] 6.25 mg PO BID #0 tablet 12/26/16 [Rx] metFORMIN [Glucophage XR] 750 mg PO BID 03/02/21 [History] Meclizine [Antivert] 25 mg PO Q6H PRN #15 tab 07/30/21 [Rx] Past Medical History HEENT History: Reports: Impaired Vision Other HEENT History: wears glasses Cardiovascular History: Reports: High Cholesterol, Hypertension Respiratory History: Reports: None Gastrointestinal History: Reports: Colon Polyp Genitourinary History: Reports: None, UTI, Recurrent [employer] History: Reports: 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 fx lower back did PT no surgery, back is good now Neurological History: Reports: Vertigo Other Neuro History: numbness rt foot Psychiatric History: Reports: Anxiety, Depression Endocrine/Metabolic History: Reports: Diabetes, Type II Hematologic History: Reports: B12 Deficiency - Infectious Disease History Infectious Disease History: Reports: Chicken Pox, Measles, Mumps, Shingles - Past Surgical History HEENT Surgical History: Reports: Cataract Surgery, Laser Surgery Other HEENT Surgeries/Procedures: bilat cataract, bilat laser surgery bilat eyes. Laser surgery after cataract surgery Cardiovascular Surgical History: Reports: None Respiratory Surgical History: Reports: None GI Surgical History: Reports: Appendectomy, Cholecystectomy, Colonoscopy Other GI Surgeries/Procedures: Had pre-cancerous polyps removed. Female Surgical History: Reports: Hysterectomy, Salpingo-Oophorectomy Endocrine Surgical History: Reports: None Neurological Surgical History: Reports: None Musculoskeletal Surgical History: Reports: None Other Musculoskeletal Surgeries/Procedures:: Having lower back problems, stenosis. Has received physical therapy. Dermatological Surgical History: Reports: None Social & Family History - Family History Family Medical History: No Pertinent Family History - Caffeine Use Caffeine Use: Reports: None Other Caffeine Use: decaf ED ROS GENERAL - Review of Systems Review Of Systems: See Below Constitutional: Reports: No Symptoms HEENT: Reports: No Symptoms Respiratory: Reports: No Symptoms Cardiovascular: Reports: No Symptoms Endocrine: Reports: No Symptoms GI/Abdominal: Reports: No Symptoms : Reports: No Symptoms Musculoskeletal: Reports: No Symptoms Skin: Reports: No Symptoms Neurological: Reports: Dizziness Psychiatric: Reports: No Symptoms ED EXAM, GENERAL - Physical Exam Exam: See Below Exam Limited By: No Limitations General Appearance: Alert, No Apparent Distress Ears: Normal External Exam, Normal Canal Nose: Normal Inspection, Normal Mucosa, No Blood Throat/Mouth: Normal Inspection, Normal Lips, Normal Teeth, Normal Gums, Normal Oropharynx, Normal Voice Head: Atraumatic, Normocephalic Neck: Normal Inspection, Supple, Non-Tender, Full Range of Motion Respiratory/Chest: No Respiratory Distress, Lungs Clear, Normal Breath Sounds, No Accessory Muscle Use, Chest Non-Tender Cardiovascular: Normal Peripheral Pulses, Regular Rate, Rhythm, No Edema, No Gallop, No JVD, No Murmur, No Rub GI/Abdominal: Normal Bowel Sounds, Soft, Non-Tender, No Organomegaly, No Distention, No Abnormal Bruit Back Exam: Normal Inspection, Full Range of Motion Extremities: Normal Inspection, Normal Range of Motion, Non-Tender, No Pedal Edema, Normal Capillary Refill Neurological: Alert, Oriented, CN II-XII Intact, Normal Cognition, Normal Gait, Normal Reflexes, No Motor/Sensory Deficits Psychiatric: Normal Affect Course - Vital Signs Text/Narrative:: UA-negative - Orders/Labs/Meds Labs: Laboratory Tests 07/30/21 Range/Units 15:08 Urine Color Yellow (YELLOW) Urine Appearance Clear (CLEAR) Urine pH 6.0 (5.0-6.5) Ur Specific [place] 1.005 L (1.010-1.025) Urine Protein Negative (NEGATIVE) mg/dL Urine Glucose (UA) Normal (NORMAL) mg/dL Urine Ketones Negative (NEGATIVE) mg/dL Urine Occult Blood Negative (NEGATIVE) Urine Nitrite Negative (NEGATIVE) Urine Bilirubin Negative (NEGATIVE) Urine Urobilinogen Normal (NEGATIVE) mg/dL Ur Leukocyte Esterase Negative (NEGATIVE) Urine RBC 0-5 (0-5) Urine WBC 0-5 (0-5) Ur Squamous Epith Cells Moderate H (NS,R,O) Urine Bacteria Few H (NS) Departure - Departure Time of Disposition: 16:30 Disposition: Home, Self-Care 01 Condition: Good Clinical Impression: UTI (urinary tract infection), Dizziness - Discharge Information Prescriptions: Meclizine [Antivert] 25 mg PO Q6H PRN #15 tab PRN Reason: Dizziness Instructions: Vertigo, [id number], Urinary Tract Infection, Adult, [id number] Referrals: Familia Ogden MD [Primary Care Provider] - Additional Instructions: Quit taking your macrobid, your UTI has been treated Drink fluids Meclizine 25 mg every 6 hours as needed for dizziness Follow up as needed
[2021-07-30 21:40] VITALS: BP 161/77; PULSE 99
== END 2021-07-30 16:20 | disposition home or self-care (01) ==
LOC: FB.ED 14:51
DX: R42 Dizziness and giddiness (principal); N39.0 Urinary tract infection, site not specified; E78.00 Pure hypercholesterolemia, unspecified; I10 Essential (primary) hypertension; E11.9 Type 2 diabetes mellitus without complications; Z88.1 Allergy status to other antibiotic agents; Z88.0 Allergy status to penicillin; Z88.4 Allergy status to anesthetic agent; Z88.8 Allergy status to other drugs, medicaments and biological substances; Z79.899 Other long term (current) drug therapy; Z79.84 Long term (current) use of oral hypoglycemic drugs
CPT/HCPCS: 81001; 99284

== ENCOUNTER 2022-05-03 16:36 | Emergency (ER) | payer MEDICARE, BC ==
[2022-05-03 17:29] LABS: ESTIMATED GFR 49 mL/min (>60)
[2022-05-03 19:47] VITALS: BP 161/81; PULSE 92
== END 2022-05-03 18:48 | disposition home or self-care (01) ==
LOC: FB.ED 16:36
DX: I70.90 Unspecified atherosclerosis (principal); E78.00 Pure hypercholesterolemia, unspecified; I10 Essential (primary) hypertension; E11.9 Type 2 diabetes mellitus without complications; Z88.1 Allergy status to other antibiotic agents; Z88.0 Allergy status to penicillin; Z88.4 Allergy status to anesthetic agent; Z88.8 Allergy status to other drugs, medicaments and biological substances; Z79.899 Other long term (current) drug therapy
CPT/HCPCS: 36415; 80053; 81001; 84484; 85025; 86140; 93005; 99283

== ENCOUNTER 2022-09-24 14:07 | Emergency (ER) | payer MEDICARE, BC ==
[2022-09-24] MEDS ORDERED: Ciprofloxacin 500 MG Tab PO ONE (14:08)
[2022-09-24 17:16] VITALS: BP 141/75; PULSE 88
== END 2022-09-24 16:11 | disposition home or self-care (01) ==
LOC: FB.ED 14:07
DX: N39.0 Urinary tract infection, site not specified (principal); E11.9 Type 2 diabetes mellitus without complications; E78.00 Pure hypercholesterolemia, unspecified; I10 Essential (primary) hypertension; M19.90 Unspecified osteoarthritis, unspecified site; Z88.8 Allergy status to other drugs, medicaments and biological substances; Z88.1 Allergy status to other antibiotic agents; Z88.0 Allergy status to penicillin; Z88.4 Allergy status to anesthetic agent; Z88.6 Allergy status to analgesic agent; Z79.84 Long term (current) use of oral hypoglycemic drugs; Z79.899 Other long term (current) drug therapy
CPT/HCPCS: 81001; 87086; 87088; 87186; 99283; A9270-GY

== ENCOUNTER 2022-11-19 11:41 | Emergency (ER) | payer MEDICARE, BC ==
[2022-11-19 12:07] LABS: ESTIMATED GFR 49 mL/min (>60)
[2022-11-19 12:37] VITALS: BP 174/75; PULSE 93
== END 2022-11-19 12:46 | disposition home or self-care (01) ==
LOC: FB.ED 11:41
DX: N39.0 Urinary tract infection, site not specified (principal); I12.9 Hypertensive chronic kidney disease with stage 1 through stage 4 chronic kidney disease, or unspecified chronic kidney disease; E11.22 Type 2 diabetes mellitus with diabetic chronic kidney disease; N18.31 Chronic kidney disease, stage 3a; E78.00 Pure hypercholesterolemia, unspecified; Z88.1 Allergy status to other antibiotic agents; Z88.0 Allergy status to penicillin; Z88.4 Allergy status to anesthetic agent; Z88.2 Allergy status to sulfonamides; Z79.899 Other long term (current) drug therapy; Z79.84 Long term (current) use of oral hypoglycemic drugs; Z90.710 Acquired absence of both cervix and uterus
CPT/HCPCS: 36415; 80053; 81001; 85025; 99284

== ENCOUNTER 2024-04-08 17:21 | Emergency (ER) | payer MEDICARE, BC ==
[2024-04-08 17:54] LABS: BASOPHILS ABSOLUTE AUTO 0.1 x10-3/uL (0.0-0.1); BASOPHILS PERCENT AUTO 0.7 % (0.2-1.5); EOSINOPHILS PERCENT AUTO 0.4 % (0.6-8.1); HEMATOCRIT 35.6 % (34.2-48.2); HEMOGLOBIN 12.2 g/dL (11.4-15.5); LYMPHOCYTES ABSOLUTE AUTO 1.3 x10-3/uL (1.0-4.4); LYMPHOCYTES PERCENT AUTO 15.5 % (18.4-52.1); MEAN CORPUSCULAR HEMOGLOBIN 30.3 pg (23.9-33.9); MEAN CORPUSCULAR HGB CONC 34.2 g/dL (31.9-34.8); MEAN CORPUSCULAR VOLUME 88.6 fL (76.7-100.5); MEAN PLATELET VOLUME 8.2 fL (7.1-12.4); NEUTROPHILS ABSOLUTE AUTO 6.3 x10-3/uL (1.5-6.3); NEUTROPHILS PERCENT AUTO 72.4 % (30.8-76.2); PLATELET COUNT,PLT 172 x10(3)uL (151-488); RED BLOOD CELL COUNT 4.02 x10(6)uL (3.60-5.20); WHITE BLOOD CELL COUNT,WBC 8.7 x10-3/uL (3.0-10.3)
[2024-04-08 17:57] LABS: BLOOD UREA NITROGEN,BUN 27 mg/dL (7-18); BUN/CREATININE RATIO 22.5 (9-20); CALCIUM 8.5 mg/dL (8.6-10.2); CARBON DIOXIDE,CO2 24 mmol/L (21-32); CHLORIDE,CL 100 mmol/L (100-110); CREATININE 1.2 mg/dL (0.55-1.02); ESTIMATED GFR 44 mL/min (>60); GLUCOSE RANDOM 120 mg/dL (80-116); POTASSIUM,K 3.9 mmol/L (3.5-5.3); SODIUM,NA 137 mmol/L (135-145)
[2024-04-08 18:03] LABS: A/G RATIO 0.8; ALANINE AMINOTRANSFERASE,ALT 19 U/L (12-36); ALBUMIN 3.3 g/dL (3.2-4.6); ALKALINE PHOSPHATASE 67 IU/L (56-112); ASPARTATE AMNIOTRANSFERASE,AST 33 IU/L (5-25); BILIRUBIN TOTAL 0.5 mg/dL (0.1-1.3); PROTEIN TOTAL,TP 7.3 g/dL (6.0-8.0)
[2024-04-08 18:09] LABS: LACTIC ACID 1.5 mmol/L (0.4-2.0)
[2024-04-08 19:01] VITALS: BP 158/85; PULSE 107
== END 2024-04-08 19:04 | disposition home or self-care (01) ==
LOC: FB.ED 17:21
DX: U07.1 COVID-19 (principal); J40 Bronchitis, not specified as acute or chronic; I10 Essential (primary) hypertension; E78.00 Pure hypercholesterolemia, unspecified; E11.9 Type 2 diabetes mellitus without complications; Z90.49 Acquired absence of other specified parts of digestive tract; Z90.710 Acquired absence of both cervix and uterus; Z79.899 Other long term (current) drug therapy; Z79.84 Long term (current) use of oral hypoglycemic drugs; Z88.8 Allergy status to other drugs, medicaments and biological substances; Z88.5 Allergy status to narcotic agent; Z88.1 Allergy status to other antibiotic agents; Z88.0 Allergy status to penicillin
CPT/HCPCS: 36415; 71046; 80053; 83605; 83880; 85025; 86140; 99283; U0002

== ENCOUNTER 2024-04-09 23:01 | Inpatient (IN) | payer MEDICARE, BC ==
[2024-04-09 23:38] LABS: BASOPHILS PERCENT AUTO 0.8 % (0.2-1.5); EOSINOPHILS ABSOLUTE AUTO 0.1 x10-3/uL (0.0-0.8); EOSINOPHILS PERCENT AUTO 2.3 % (0.6-8.1); HEMATOCRIT 34.7 % (34.2-48.2); HEMOGLOBIN 11.8 g/dL (11.4-15.5); LYMPHOCYTES PERCENT AUTO 18.6 % (18.4-52.1); MEAN CORPUSCULAR HEMOGLOBIN 29.8 pg (23.9-33.9); MEAN CORPUSCULAR VOLUME 87.6 fL (76.7-100.5); MEAN PLATELET VOLUME 7.8 fL (7.1-12.4); MONOCYTES ABSOLUTE AUTO 0.5 x10-3/uL (0.3-1.0); MONOCYTES PERCENT AUTO 8.9 % (4.4-15.7); NEUTROPHILS ABSOLUTE AUTO 3.8 x10-3/uL (1.5-6.3); NEUTROPHILS PERCENT AUTO 69.4 % (30.8-76.2); PLATELET COUNT,PLT 168 x10(3)uL (151-488); RED BLOOD CELL COUNT 3.96 x10(6)uL (3.60-5.20); RED CELL DISTRIBUTION WIDTH 13.5 % (12.3-16.5); WHITE BLOOD CELL COUNT,WBC 5.5 x10-3/uL (3.0-10.3)
[2024-04-09 23:38] LABS: BILIRUBIN,URINE NEGATIVE (NEGATIVE); GLUCOSE,URINE NORMAL (NORMAL); KETONES,URINE NEGATIVE (NEGATIVE); LEUKOCYTE ESTERASE,URINE NEGATIVE (NEGATIVE); NITRITE,URINE NEGATIVE (NEGATIVE); OCCULT BLOOD,URINE NEGATIVE (NEGATIVE); PROTEIN,URINE NEGATIVE (NEGATIVE); UROBILINOGEN,URINE NORMAL (NEGATIVE)
[2024-04-09 23:46] LABS: BLOOD UREA NITROGEN,BUN 23 mg/dL (7-18); BUN/CREATININE RATIO 20.9 (9-20); CALCIUM 8.2 mg/dL (8.6-10.2); CARBON DIOXIDE,CO2 26 mmol/L (21-32); CHLORIDE,CL 100 mmol/L (100-110); CREATININE 1.1 mg/dL (0.55-1.02); EST CRCL DRUG DOSING (CG) 32.42 mL/min; ESTIMATED GFR 49 mL/min (>60); GLUCOSE RANDOM 120 mg/dL (80-116); POTASSIUM,K 3.7 mmol/L (3.5-5.3); SODIUM,NA 137 mmol/L (135-145)
[2024-04-09 23:51] LABS: A/G RATIO 0.8; ALANINE AMINOTRANSFERASE,ALT 30 U/L (12-36); ALBUMIN 3.1 g/dL (3.2-4.6); ALKALINE PHOSPHATASE 63 IU/L (56-112); ASPARTATE AMNIOTRANSFERASE,AST 56 IU/L (5-25); BILIRUBIN TOTAL 0.4 mg/dL (0.1-1.3); PROTEIN TOTAL,TP 7.1 g/dL (6.0-8.0)
[2024-04-09 23:56] LABS: APPEARANCE,URINE CLEAR (CLEAR); COLOR,URINE YELLOW (YELLOW)
[2024-04-09 23:57] LABS: BACTERIA,URINE OCCASIONAL (NS); RBC,URINE 0-5 (0-5); SQUAMOUS EPITHELIAL CELLS,UR OCCASIONAL (NS,R,O); WBC,URINE 0-5 (0-5)
[2024-04-10] MEDS: Sodium Chloride 0.9% 1,000 ML IV SCH (00:25)
[2024-04-10] MEDS: Codeine/guaiFENesin 10-100 MG/5 ML Syrup 5 ML Cup PO ONE (03:28)
[2024-04-10] MEDS: Benzonatate 100 MG Cap PO ONE ×2 (06:05→09:45)
[2024-04-10] MEDS ORDERED: Ondansetron 4 MG Tab.DIS PO PRN ×2 (07:54→07:56)
[2024-04-10] MEDS ORDERED: Acetaminophen 500 MG Tab PO PRN (07:56)
[2024-04-10] MEDS ORDERED: Meclizine 25 MG Tab PO PRN (07:56)
[2024-04-10] MEDS ORDERED: Non-Formulary Medication 1 Each (Estrogens, Conjugated [Premarin Vaginal Crm] 30 GM Tube) VAG SCH (08:00)
[2024-04-10] MEDS ORDERED: Non-Formulary Medication 1 Each (Menthol [Biofreeze] 118 ML Gel..Ml.) TOP SCH (09:00)
[2024-04-10] MEDS ORDERED: amLODIPine 2.5 MG Tab PO SCH (09:00)
[2024-04-10] MEDS: FOSINOPRIL SODIUM 20 MG PO SCH (09:45)
[2024-04-10] MEDS: metFORMIN 500 MG Tab PO SCH (09:58)
[2024-04-10] MEDS: Potassium Chloride 10 MEQ Tab.ER PO SCH (09:59)
[2024-04-10] MEDS: Hydrochlorothiazide/Triamterene 25-37.5 Tab PO SCH (09:59)
[2024-04-10] MEDS: Calcium Carbonate 500 MG Tablet PO SCH (09:59)
[2024-04-10] MEDS: Enoxaparin 40 MG/0.4 ML Syringe SUBCUT SCH (09:59)
[2024-04-10] MEDS: Carvedilol 12.5 MG Tab PO SCH (10:01)
[2024-04-10] MEDS: Beta-Carotene (Vitamin A) w/Vitamin C & E plus Minerals Tab PO SCH (10:01)
[2024-04-10] MEDS: Cyanocobalamin (Vitamin B12) 1,000 MCG Tab PO SCH (10:01)
[2024-04-10] MEDS: atorvaSTATin 20 MG Tab PO SCH (20:43)
[2024-04-10] MEDS: Mirtazapine 15 MG Tab PO SCH (20:43)
[2024-04-11 06:44] LABS: A/G RATIO 0.8; ALANINE AMINOTRANSFERASE,ALT 41 U/L (12-36); ALBUMIN 2.6 g/dL (3.2-4.6); ALKALINE PHOSPHATASE 60 IU/L (56-112); ASPARTATE AMNIOTRANSFERASE,AST 63 IU/L (5-25); BILIRUBIN TOTAL 0.4 mg/dL (0.1-1.3); BLOOD UREA NITROGEN,BUN 16 mg/dL (7-18); BUN/CREATININE RATIO 17.8 (9-20); CALCIUM 7.6 mg/dL (8.6-10.2); CARBON DIOXIDE,CO2 25 mmol/L (21-32); CHLORIDE,CL 104 mmol/L (100-110); CREATININE 0.9 mg/dL (0.55-1.02); EST CRCL DRUG DOSING (CG) 39.63 mL/min; ESTIMATED GFR 62 mL/min (>60); GLUCOSE RANDOM 114 mg/dL (80-116); POTASSIUM,K 3.7 mmol/L (3.5-5.3); SODIUM,NA 139 mmol/L (135-145)
[2024-04-12] MEDS: Loperamide 2 MG Cap PO ONE (09:03)
[2024-04-12 09:43] VITALS: BP 168/72; PULSE 87
== END 2024-04-12 10:25 | disposition home or self-care (01) | DRG 178 ==
LOC: FB.ED 23:01 → INTOOBSV 04-10 07:21 → FB.MS 04-10 07:21 → OBSVTOIN 04-11 08:52
PROVIDERS: ADMIT Family Medicine; ATTEND Family Medicine
DX: U07.1 COVID-19 (principal); I24.89 Other forms of acute ischemic heart disease; E11.9 Type 2 diabetes mellitus without complications; R41.0 Disorientation, unspecified; I10 Essential (primary) hypertension; N17.9 Acute kidney failure, unspecified; J40 Bronchitis, not specified as acute or chronic; F41.9 Anxiety disorder, unspecified; F32.A Depression, unspecified; Z51.5 Encounter for palliative care; M19.90 Unspecified osteoarthritis, unspecified site; E78.00 Pure hypercholesterolemia, unspecified; N18.31 Chronic kidney disease, stage 3a; E86.0 Dehydration; E11.22 Type 2 diabetes mellitus with diabetic chronic kidney disease; Z88.4 Allergy status to anesthetic agent; Z91.018 Allergy to other foods; I12.9 Hypertensive chronic kidney disease with stage 1 through stage 4 chronic kidney disease, or unspecified chronic kidney disease; Z88.1 Allergy status to other antibiotic agents; Z88.6 Allergy status to analgesic agent; Z88.8 Allergy status to other drugs, medicaments and biological substances; Z88.2 Allergy status to sulfonamides; Z88.0 Allergy status to penicillin; Z79.84 Long term (current) use of oral hypoglycemic drugs; Z90.49 Acquired absence of other specified parts of digestive tract; Z90.89 Acquired absence of other organs; Z86.010 Personal history of colon polyps; Z79.899 Other long term (current) drug therapy; Z87.440 Personal history of urinary (tract) infections; Z90.710 Acquired absence of both cervix and uterus; Z98.890 Other specified postprocedural states; Z90.721 Acquired absence of ovaries, unilateral
CPT/HCPCS: 36415; 71046; 80053; 81001; 82947; 84484; 85025; 93005; 94150; 96360; 96361; 96372; 97161-GP; 97165-GO; 99285-25; A9270-GY; G0378; J1650; J7030